=== PATIENT | female | born 1950 | race Caucasian/White ===

== ENCOUNTER → 2016-05-17 | Outpatient (CLI) | payer OTHER, MEDICARE ==
[~2016-05-17] MED LIST: ANAS1TAB6 PO; BUPR-79 PO; BUPR200T2 PO; CALC1TAB9 PO; CALCPOW18 PO; CHOL200010 PO; COD1OIL4 PO; DICL1GEL28; DICY10CA12 PO; ESCI1TAB6 PO; GABA-113 PO; GLUCTAB7 PO; HYDR-5688 PO; MULTTAB58 PO; NRN/300 PO; OKRA PEPSIN PO; OMEGCAP2 PO; OMEP20CA9 PO; TROL10LO PO
== END | disposition home or self-care (01) ==
LOC: C.LABBC 12:43
PROVIDERS: ATTEND Family Medicine
DX: Z11.59 Encounter for screening for other viral diseases (principal)

== ENCOUNTER → 2016-07-26 | Outpatient (CLI) | payer OTHER, MEDICARE ==
[2016-07-26 13:17] VITALS: BP 133/73; PULSE 68; TEMP 36.7; O2SAT 96
--- NOTE | 2016-07-26 16:50 | Radiation Oncology Follow-Up ---
Radiation Oncology Follow-Up Date of Visit Jul 26, 2016. Reason For Visit Annual follow-up Radiation Completion Date 11/25/13 hypofractionation Diagnosis (1) Carcinoma of upper-outer quadrant of left female breast Status: Resolved Onset Date: 02/25/2013 Histology Subtype: ductal Stage: l Permanent Comment: Abnormal left breast mammogram Status post ultrasound-guided biopsy 02/25/2013 finding invasive ductal carcinoma Status post partial mastectomy and sentinel lymph node biopsy Stage pTb [id number] Estrogen receptor positive progesterone receptor positive HER-2/amara negative Status post dose dense systemic chemotherapy Status post completion of radiation therapy utilizing hypo-fractionation completed 11/25/2013 received 5000 cGy Last Edited By: Nithya Patricia on Jul 07, 2015 16:01 Interim History She's been doing well over this past year. She has noted no masses to the breast. She did have some mild discomfort in her left axilla following mammography in November. This has persisted somewhat since. There may have been some mild swelling following the test. She noticed no redness or ecchymosis. She has noted no masses of the axilla. She's had no swelling of her arm. She is up-to-date on mammography. She continues follow-up in [place] with examinations and mammography. 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 This is improved by taking Neurontin. At times she needs to take this 4 times a day. This is followed by neurology. She is also followed for her MS. After completing her chemotherapy her MS went into remission and she is no longer required medications for the MS. Allergies Coded Allergies: Penicillins (Verified Allergy, Intermediate, HIVES, 03/30/15) Clonazepam (Verified Allergy, Unknown, Depression;, 07/26/16) Tetracycline (Verified Adverse Reaction, Intermediate, rash, 03/30/15) Zolpidem (Verified Adverse Reaction, Intermediate, sleep eating episodes, 03/30/15) Adhesives (Verified Adverse Reaction, Mild, skin tears, skin blisters, 03/30/15) Pt feels it was assoc. with the tape on surgical dressing Erythromycin (Verified Adverse Reaction, Mild, GI SYMPTOMS, 03/30/15) stomach bhandari Home Medications Scheduled Anastrozole (Anastrozole), 1 TAB PO QAM Bupropion (Wellbutrin Sr), 200 MG PO BID Calcium Citrate-Vitamin D (Citracal + D3 Maximum), 1 TAB PO BID Cholecalciferol (Vitamin D), 1 TAB PO BID Cod Liver Oil (Cod Liver Oil), 2 TSP PO DAILY Escitalopram Oxalate (Lexapro), 5 MG PO DAILY Gabapentin (Neurontin), 300 MG PO QAM Gabapentin (Neurontin), 600 MG PO QPM Vevonfdguwf-Rhlldzmwyfd-Sdj C- (Glucosamine Chondroitin), 1 TAB PO QAM Multiple Vitamin (Multivitamin), 1 TAB PO QAM Trolamine Salicylate (Aspercreme), 1 APPLN PO HS [okra pepsin], 1 CAP PO BID Scheduled PRN Dicyclomine Hcl (Dicyclomine Hcl), 1 CAP PO TID PRN for ABDOMINAL PAIN Hydrocodone/Acetaminophen 5MG/325MG ([place] 5MG/325MG), 0.5 TABLETS PO HS PRN for Pain Review of Systems Gastrointestinal: Symptoms: Constipation GI Comments: Constipation - manageable at home;Relates it to her medications ; Oral: Symptoms: No Problems Respiratory: Symptoms: WNL Urinary: Symptoms: WNL Comments: Small amount of urinary leakage - wears small poise pad for; Skin: Symptoms: No Problems Other Skin Symptoms: Still uses natrual care gel occaisonally Breast: Right Upper Arm Measurement: 28.3 Right Mid Arm Measurement: 25.3 Right Wrist Measurement: 16.0 Left Upper Arm Measurement: 28.8 Left Mid Arm Measurement: 25.0 Left Wrist Measurement: 16.0 Arm Dominence: Right Physical Exam Vital Signs Date Time Temp Pulse Resp B/P Pulse Ox O2 Delivery O2 Flow Rate FiO2 07/26/16 13:17 36.7 68 12 133/73 96 Pain: Pain Duration: Comes and goes Side: Bilateral Pain Location: Joint Pain Patient Pain Scale: 0 - 10 Initial Pain Intensity: 3.5 Pain Description: Aching Additional Comments: Also using aspercream to joints; Fatigue: None General Appearance: no apparent distress Eyes: normal inspection, EOMI ENT: normal ENT inspection, hearing grossly normal Neck: no adenopathy, thyroid normal Respiratory/Chest: lungs clear, no respiratory distress, no accessory muscle use Breast: Breast examination reveals well-healed incisions of the left breast. There are no masses or tenderness and no axillary adenopathy. She has one small area of ecchymosis in the upper inner quadrant. Using the [place] score cosmesis she has a excellent outcome. The right breast showed no masses or tenderness no axillary adenopathy. Cardiovascular: regular rate, rhythm, no gallop, no murmur Extremities: no pedal edema Neurologic/Psychiatric: no motor/sensory deficits, alert, normal mood/affect Skin: warm/dry Lymphatic: no adenopathy Laboratory Studies Test 05/17/16 12:50 05/26/16 13:52 Hepatitis C Antibody NEG (NEG) White Blood Count 4.70 K/uL (4.8-10.8) Red Blood Count 4.50 M/uL (4.2-5.4) Hemoglobin 14.2 g/dL (12.0-16.0) Hematocrit 42.2 % (37-47) Mean Corpuscular Volume 93.8 fL (80-100) Mean Corpuscular Hemoglobin 31.6 pg (25-34) Mean Corpuscular Hemoglobin Concent 33.6 g/dl (32-36) Platelet Count 182 K/uL (130-400) Mean Platelet Volume 9.8 fL (7.4-10.4) Neutrophils (%) (Auto) 53.0 % Lymphocytes (%) (Auto) 36.8 % Monocytes (%) (Auto) 7.2 % Eosinophils (%) (Auto) 2.8 % Basophils (%) (Auto) 0.2 % Neutrophils # (Auto) 2.49 K/uL (1.4-6.5) Lymphocytes # (Auto) 1.73 K/uL (1.2-3.4) Monocytes # (Auto) 0.34 K/uL (0.11-0.59) Eosinophils # (Auto) 0.13 K/uL (0-0.5) Basophils # (Auto) 0.01 K/uL (0-0.2) RDW Standard Deviation 43.1 fL (36.4-46.3) RDW Coefficient of Variation 12.7 % (11.5-14.5) Immature Granulocyte % (Auto) 0.0 % Immature Granulocyte # (Auto) 0.00 K/uL (0.00-0.02) Additional Studies She had a mammogram 11/23/2015. This showed calcifications in the left breast are probably benign. A unilateral diagnostic mammogram of the left breast is recommended in 6 months. Recommended magnification mammography in 6 months. She had a mammogram in 05/30/2016. This showed calcifications in the left breast are probably benign. Follow-up in 6 months is recommended. BI-RADS Category 3 Assessment & Plan Plan: Continue regular follow-up with her primary care physician and the breast Center in [place]. She'll be due for next mammogram in November. She continues on anastrozole. We discussed the discomfort on the lateral aspect of the breast. Slightly some inflammation or contact us to chondritis. She steadily improve over time. We asked her to return to our office in 1 year. She may call if she has any questions or concerns in the interim. Total Time In Follow-Up I spent 20 minutes speaking to the patient and performing examination. I spent 15 minutes reviewing information in completing this note. Copy To Sandra De Jesus; Hortencia Prescott CRNP; Anabella Anguiano, DO
== END | disposition home or self-care (01) ==
LOC: C.ONC 12:50
PROVIDERS: ATTEND Physician Assistant Medical
DX: Z08 Encounter for follow-up examination after completed treatment for malignant neoplasm (principal); Z92.3 Personal history of irradiation; Z85.3 Personal history of malignant neoplasm of breast

== ENCOUNTER → 2017-03-30 | Outpatient (CLI) | payer OTHER, MEDICARE ==
[~2017-03-30] MED LIST changes: -BUPR-79 PO; -CALCPOW18 PO; -DICL1GEL28; -OMEGCAP2 PO; -OMEP20CA9 PO
[2017-03-30 13:09] LABS: BASO % 0.5 %; BASO ABS # 0.02 K/uL (0-0.2); COMPLETE YES; EOS % 2.2 %; HEMATOCRIT 42.8 % (37-47); LYMPH % 41.2 %; MEAN CELL VOLUME 94.7 fL (80-100); MEAN CORPUSCULAR HEMOGLOBIN 32.1 pg (25-34); MEAN CORPUSCULAR HGB CONC 33.9 g/dl (32-36); MEAN PLATELET VOLUME 10.6 fL (7.4-10.4); NEUT % 48.1 %; PLATELET COUNT 172 K/uL (130-400); RED BLOOD COUNT 4.52 M/uL (4.2-5.4); WHITE BLOOD COUNT 4.13 K/uL (4.8-10.8)
[2017-03-30 13:36] LABS: BLOOD UREA NITROGEN 15 mg/dl (7-18); BUN/CREATININE RATIO 14.6 (10-20); CARBON DIOXIDE 30 mmol/L (21-32); CHLORIDE 104 mmol/L (98-107); CREATININE 1.02 mg/dl (0.60-1.20); GLUCOSE 93 mg/dl (70-99); POTASSIUM 4.3 mmol/L (3.5-5.1); SODIUM 136 mmol/L (136-145)
[2017-03-30 13:44] LABS: CHOLESTEROL/HDL RATIO 2.5
== END | disposition home or self-care (01) ==
LOC: C.LAB1850 12:14
PROVIDERS: ATTEND Family Medicine
DX: I10 Essential (primary) hypertension (principal); G35 Multiple sclerosis; M81.0 Age-related osteoporosis without current pathological fracture; C50.919 Malignant neoplasm of unspecified site of unspecified female breast

== ENCOUNTER → 2017-07-25 | Outpatient (CLI) | payer OTHER, MEDICARE ==
[2016-07-26 13:17] VITALS: BP 133/73; PULSE 68
[~2017-07-25] MED LIST changes: -ANAS1TAB6 PO; +ANAS1TAB7 PO; +PRLSR20 PO; +TAMO20TA9 PO
[2017-07-25 13:07] VITALS: BP 122/66; PULSE 68; TEMP 36.9; O2SAT 97
--- NOTE | 2017-07-25 16:27 | Radiation Oncology Follow-Up ---
Radiation Oncology Follow-Up Date of Visit Jul 25, 2017. Reason For Visit Annual follow-up Radiation Completion Date Hypofractionation 11/25/13 Diagnosis (1) Carcinoma of upper-outer quadrant of left female breast Status: Resolved Onset Date: 02/25/2013 Histology Subtype: Ductal Stage: l Permanent Comment: Abnormal left breast mammogram Status post ultrasound-guided biopsy 02/25/2013 finding invasive ductal carcinoma Status post partial mastectomy and sentinel lymph node biopsy Stage pTb [id number] Estrogen receptor positive progesterone receptor positive HER-2/amara negative Status post dose dense systemic chemotherapy Status post completion of radiation therapy utilizing hypo-fractionation completed 11/25/2013 received 5000 cGy Last Edited By: Nithya Patricia on Jul 07, 2015 16:01 Interim History She has continued with her regular follow-up mammography. She stated that approximately 1 year ago when undergoing mammography she had discomfort during the test. Since that time she continues to have a mild discomfort in the upper outer portion of the breast. This is minimal and she does not give a a pain level. She notes especially when she is more active. She is noted no masses and no changes of the axilla. She is up-to-date with current mammography. She denied any severe pain with her last mammogram. She is followed by Dr. Benjamin and had been on an aromatase inhibitor. She had severe joint and muscle pain. Medication was discontinued and she is now on tamoxifen. She does have less muscle pain. She does have some joint pain. Allergies Coded Allergies: Penicillins (Verified Allergy, Intermediate, HIVES, 03/30/15) Clonazepam (Verified Allergy, Unknown, Depression;, 07/26/16) Tetracycline (Verified Adverse Reaction, Intermediate, rash, 03/30/15) Zolpidem (Verified Adverse Reaction, Intermediate, sleep eating episodes, 03/30/15) Adhesives (Verified Adverse Reaction, Mild, skin tears, skin blisters, 03/30/15) Pt feels it was assoc. with the tape on surgical dressing Erythromycin (Verified Adverse Reaction, Mild, GI SYMPTOMS, 03/30/15) stomach bhandari Home Medications Scheduled Bupropion (Wellbutrin Sr), 200 MG PO BID Calcium Citrate-Vitamin D (Citracal + D3 Maximum), 1 TAB PO BID Cholecalciferol (Vitamin D), 1 TAB PO BID Cod Liver Oil (Cod Liver Oil), 2 TSP PO DAILY Escitalopram Oxalate (Lexapro), 20 MG PO DAILY Gabapentin (Neurontin), 300 MG PO QAM Gabapentin (Neurontin), 600 MG PO QPM Pjoxwyfxsoq-Raevisskbmj-Ifw C- (Glucosamine Chondroitin), 1 TAB PO QAM Multiple Vitamin (Multivitamin), 1 TAB PO QAM Omeprazole (Prilosec), 20 MG PO DAILY Tamoxifen (Nolvadex), 20 MG PO DAILY Trolamine Salicylate (Aspercreme), 1 APPLN PO HS [okra pepsin], 1 CAP PO BID Scheduled PRN Dicyclomine Hcl (Dicyclomine Hcl), 1 CAP PO TID PRN for ABDOMINAL PAIN Hydrocodone/Acetaminophen 5MG/325MG ([place] 5MG/325MG), 0.5 TABLETS PO HS PRN for Pain Review of Systems Gastrointestinal: Symptoms: Constipation GI Comments: Chronic constipation manageable at home;Anal fissure - rectal spotting Oral: Symptoms: No Problems Respiratory: Symptoms: WNL Urinary: Symptoms: Incontinence Comments: Has some urinary leakage if delays urge to void;Wears poise pads; Skin: Symptoms: No Problems Other Skin Symptoms: Still uses natrual care gel occaisonally Breast: Right Upper Arm Measurement: 16.0 Right Mid Arm Measurement: 26.0 Right Wrist Measurement: 29.3 Left Upper Arm Measurement: 30.5 Left Mid Arm Measurement: 25.0 Left Wrist Measurement: 16.0 Arm Dominence: Right Physical Exam Vital Signs Date Time Temp Pulse Resp B/P (MAP) Pulse Ox O2 Delivery O2 Flow Rate FiO2 07/25/17 13:07 36.9 68 12 122/66 97 Fatigue: None General Appearance: no apparent distress Eyes: normal inspection, EOMI ENT: normal ENT inspection, hearing grossly normal Neck: no adenopathy, thyroid normal Respiratory/Chest: lungs clear, no respiratory distress, no accessory muscle use Breast: Wrist examination reveals well-healed incisions of the left breast. There are no masses. There is mild tenderness to deep palpation in one area of the right upper outer quadrant. There is no axillary adenopathy. Using the [place] score cosmesis she has an excellent outcome. When showing me the area of discomfort she pushed very firmly into the breast tissue. The right breast showed no masses or tenderness and no axillary adenopathy. Cardiovascular: regular rate, rhythm, no gallop, no murmur Extremities: no pedal edema Neurologic/Psychiatric: no motor/sensory deficits, alert, normal mood/affect Skin: warm/dry Pain Management Patient Reports Pain: Yes Side: Bilateral Pain Location: both knee;Right SI joint ache Patient Preferred Pain Scale: 0 - 10 Initial Pain Intensity: 3.5 Pain Management Plan Joint pain is due to the antiestrogen therapy. She does not require pain management through our office. Laboratory Laboratory Results: not applicable Pathology Pathology Results: not applicable Imaging Imaging Studies: were reviewed, and pertinent findings noted below Assessment & Plan Continue regular follow-up with medical oncology and her primary care physician. A copy of her most recent mammogram will be obtained for our chart. We discussed the discomfort of the breast. I have asked her to perform breast examination only once a month. She is continuing on the tamoxifen. We asked her to return to our office in 1 year. She may call if she has any questions or concerns in the interim. Total Time In Follow-Up I spent 20 minutes speaking to the patient in performing examination. I spent 15 minutes reviewing information and completing this note. Copy To Frederic Levin D.O.; Isadora Pacheco MD Problem Qualifiers (1) Carcinoma of upper-outer quadrant of left female breast: Estrogen receptor status: positive Qualified Codes: C50.412 - Malignant neoplasm of upper-outer quadrant of left female breast; Z17.0 - Estrogen receptor positive status [ER+]
== END | disposition home or self-care (01) ==
LOC: C.ONC 12:59
PROVIDERS: ATTEND Physician Assistant Medical
DX: Z08 Encounter for follow-up examination after completed treatment for malignant neoplasm (principal); Z92.3 Personal history of irradiation; Z85.3 Personal history of malignant neoplasm of breast

== ENCOUNTER 2017-12-07 14:27 | Emergency (ER) | payer OTHER, MEDICARE ==
[~2017-12-07] VITALS: Ht 172.7 cm; Wt 77.4 kg
[~2017-12-07 14:27] MED LIST changes: -ANAS1TAB7 PO
[2017-12-07 14:32] VITALS: Ht 172.7 cm; Wt 77.4 kg
[2017-12-07] MEDS ORDERED: GI COCKTAIL PO STA (14:49)
--- NOTE | 2017-12-07 15:02 | EMERGENCY ROOM VISIT NOTE ---
History First contact with patient: 14:35 Chief Complaint: ABDOMINAL PAIN Stated Complaint: PAIN UNDER RIB,POSSIBLE GALL BLADDER Nursing Triage Summary: Pt. is c/o abdominal pain, it has been bothering her for some time now, RUQ pain for 6 weeks. Pt. has normal bowel sounds. N/V. History of Present Illness The patient is a 67 year old female who presents to the Emergency Room with complaints of right upper quadrant abdominal pain which is been intermittent for the past 6 weeks. The patient states she did see her primary care provider at that time and was prescribed 40 mg omeprazole twice daily and had a gallbladder ultrasound performed. She states the ultrasound showed some small gallstones, but no signs of acute cholecystitis. The patient does believe the increased antacid dose has been beneficial. She is scheduled for a nuclear test to be performed to check the gallbladder function next Sunday. For the past 4 nights, the patient has been having bowel movements at the end of the day which is unusual. She does report cramps in her upper abdomen which is consistent with her pain. Patient has had a decreased appetite for the past few weeks. She states she did notice some increased bloating and generalized abdominal discomfort after eating a [employer] hamburger, but states she does get many of those symptoms with any foods. She denies any recent fever, chills , nausea, vomiting, constipation, paresthesias, flank pain, urinary symptoms, chest pain, or dyspnea. Review of Systems A complete 10 point review of systems was reviewed with the patient with pertinent positives and negatives as per history of present illness. All else were negative. Past Medical/Surgical History Medical Problems: (1) Breast cancer (2) Carcinoma of upper-outer quadrant of left female breast Social History Smoking Status: Never Smoker Smokeless Tobacco Use: No Alcohol Use: none Drug Use: none Marital Status: Housing Status: lives with family Current/Historical Medications Scheduled Bupropion (Wellbutrin Sr), 200 MG PO BID Calcium Citrate-Vitamin D (Citracal + D3 Maximum), 1 TAB PO BID Cholecalciferol (Vitamin D), 1 TAB PO BID Escitalopram Oxalate (Escitalopram Oxalate), 10 MG PO DAILY Fish Oil ([place]-3), 1 CAP PO DAILY Gabapentin (Neurontin), 300 MG PO QAM Gabapentin (Neurontin), 600 MG PO QPM Multiple Vitamin (Multivitamin), 1 TAB PO QAM Omeprazole (Prilosec), 40 MG PO BID Pantoprazole (Protonix), 40 MG PO DAILY Ranitidine (Zantac), 1 TAB PO BID Tamoxifen (Nolvadex), 20 MG PO DAILY Trolamine Salicylate (Aspercreme), 1 APPLN PO HS Scheduled PRN Hydrocodone/Acetaminophen 5MG/325MG ([place] 5MG/325MG), 0.5 TABLETS PO HS PRN for Pain Physical Exam Vital Signs Date Time Temp Pulse Resp B/P (MAP) Pulse Ox O2 Delivery O2 Flow Rate FiO2 12/07/17 16:30 36.8 56 18 145/81 97 12/07/17 16:29 56 18 145/81 97 Room Air 12/07/17 15:47 57 18 161/82 97 Room Air 12/07/17 14:32 36.8 64 18 163/86 97 Room Air Physical Exam VITALS: Vitals are noted on the nurse's note and reviewed by myself. Vital signs stable. GENERAL: This is a 67-year-old white female, in no acute distress, nondiaphoretic, well-developed well-nourished. SKIN: The skin was without rashes, erythema, edema, or bruising. There is no tenting of the skin. Capillary reflex less than 2 seconds. HEAD: Normocephalic atraumatic. EARS: External auditory canals clear, tympanic membranes pearly gallegos without erythema or effusion bilaterally. EYES: Pupils equal round and reactive to light and accommodation. Conjunctivae without injection, sclerae without icterus. Extraocular movements intact. NOSE: Patent, turbinates without inflammation or discharge. No sinus tenderness. MOUTH: Mucous membranes moist. Tonsils are not enlarged. Pharynx without erythema or exudate. Uvula midline. Airway patent. Tongue does not deviate. NECK: Supple without nuchal rigidity. No lymphadenopathy. No thyromegaly. Cervical spine is nontender. No JVD. HEART: Regular rate and rhythm without murmurs gallops or rubs. LUNGS: Clear to auscultation bilaterally without wheezes, rales or rhonchi. No dullness to percussion. No retractions or accessory muscle use. ABDOMEN: Positive bowel sounds x 4. Normal tympanic percussion. Right upper quadrant abdominal tenderness. The abdomen was otherwise soft, nontender, without masses or organomegaly. Pino sign negative. No guarding or rebound tenderness. No CVA tenderness bilaterally. MUSCULOSKELETAL: No muscle atrophy, erythema, or edema noted. Full range of motion without joint tenderness in all extremities. No tenderness to palpation. Normal gait. Strength 5/5 throughout. NEURO: Patient was alert and oriented to person place and time. Normal sensation to light and sharp touch. No focal neurological deficits. Medical Decision & Procedures ER Provider Diagnostic Interpretation: ULTRASOUND RIGHT UPPER QUADRANT ABDOMEN CLINICAL HISTORY: Right upper quadrant abdominal pain. COMPARISON STUDY: Abdominal CT dated 03/09/2015. TECHNIQUE: Real-time, grayscale, and color flow sonography of the right upper quadrant of the abdomen was performed. Images are reviewed in the transverse and longitudinal planes. FINDINGS: Liver: The liver is top normal in size, measuring 18.2 cm in length. Echotexture is normal. There is no intrahepatic biliary ductal dilatation. The main portal vein is patent. Gallbladder: There are numerous layering calcified gallstones. There is no gallbladder wall thickening or pericholecystic fluid. A sonographic Pino's sign is reportedly absent. The common bile duct measures up to 0.4 cm in diameter. Pancreas: Visualized portions of the pancreatic head and body are normal in appearance. The splenic vein is patent. Right kidney: Survey images of the right kidney demonstrate normal size and echotexture. There is no hydronephrosis. Ascites: None. IMPRESSION: Cholelithiasis without sonographic evidence of acute cholecystitis. Electronically signed by: Prosper Mccarthy M.D. 12/07/2017 3:48 PM Dictated Date/Time: 12/07/2017 3:47 PM Laboratory Results 12/07/17 15:00 Red Blood Count 4.39, Mean Corpuscular Volume 93.6, Mean Corpuscular Hemoglobin 31.2, Mean Corpuscular Hemoglobin Concent 33.3, Mean Platelet Volume 9.6, Neutrophils (%) (Auto) 51.4, Lymphocytes (%) (Auto) 34.5, Monocytes (%) (Auto) 10.9, Eosinophils (%) (Auto) 2.7, Basophils (%) (Auto) 0.5, Neutrophils # (Auto ) 1.89, Lymphocytes # (Auto) 1.27, Monocytes # (Auto) 0.40, Eosinophils # (Auto ) 0.10, Basophils # (Auto) 0.02 12/07/17 15:00 Test 12/07/17 15:00 White Blood Count 3.68 K/uL (4.8-10.8) Red Blood Count 4.39 M/uL (4.2-5.4) Hemoglobin 13.7 g/dL (12.0-16.0) Hematocrit 41.1 % (37-47) Mean Corpuscular Volume 93.6 fL (80-100) Mean Corpuscular Hemoglobin 31.2 pg (25-34) Mean Corpuscular Hemoglobin Concent 33.3 g/dl (32-36) Platelet Count 167 K/uL (130-400) Mean Platelet Volume 9.6 fL (7.4-10.4) Neutrophils (%) (Auto) 51.4 % Lymphocytes (%) (Auto) 34.5 % Monocytes (%) (Auto) 10.9 % Eosinophils (%) (Auto) 2.7 % Basophils (%) (Auto) 0.5 % Neutrophils # (Auto) 1.89 K/uL (1.4-6.5) Lymphocytes # (Auto) 1.27 K/uL (1.2-3.4) Monocytes # (Auto) 0.40 K/uL (0.11-0.59) Eosinophils # (Auto) 0.10 K/uL (0-0.5) Basophils # (Auto) 0.02 K/uL (0-0.2) RDW Standard Deviation 44.2 fL (36.4-46.3) RDW Coefficient of Variation 12.8 % (11.5-14.5) Immature Granulocyte % (Auto) 0.0 % Immature Granulocyte # (Auto) 0.00 K/uL (0.00-0.02) Urine Color YELLOW Urine Appearance CLEAR (CLEAR) Urine pH 6.0 (4.5-7.5) Urine Specific [place] 1.010 (1.000-1.030) Urine Protein NEG (NEG) Urine Glucose (UA) NEG (NEG) Urine Ketones NEG (NEG) Urine Occult Blood NEG (NEG) Urine Nitrite NEG (NEG) Urine Bilirubin NEG (NEG) Urine Urobilinogen NEG (NEG) Urine Leukocyte Esterase SMALL (NEG) Urine WBC (Auto) 5-10 /hpf (0-5) Urine RBC (Auto) 5-10 /hpf (0-4) Urine Hyaline Casts (Auto) 1-5 /lpf (0-5) Urine Epithelial Cells (Auto) >30 /lpf (0-5) Urine Bacteria (Auto) NEG (NEG) Urine Crystals CALCIUM OXALATE (NONE Anion Gap 5.0 mmol/L (3-11) Est Creatinine Clear Calc Drug Dose 53.3 ml/min Estimated GFR () 60.0 Estimated GFR (Non- 51.8 BUN/Creatinine Ratio 11.2 (10-20) Calcium Level 8.5 mg/dl (8.5-10.1) Total Bilirubin 0.3 mg/dl (0.2-1) Aspartate Amino Transf (AST/SGOT) 21 U/L (15-37) Alanine Aminotransferase (ALT/SGPT) 27 U/L (12-78) Alkaline Phosphatase 45 U/L (45-117) Total Protein 7.2 gm/dl (6.4-8.2) Albumin 3.6 gm/dl (3.4-5.0) Globulin 3.6 gm/dl (2.5-4.0) Albumin/Globulin Ratio 1.0 (0.9-2) Lipase 171 U/L (73-393) Medications Administered Medications (Trade) Dose Ordered Sig/Zayra Route Start Time Stop Time Status Last Admin Dose Admin Al Hydroxide/Mg Hydroxide (Maalox Susp) 30 ml STK-MED ONCE .ROUTE 12/07/17 15:06 12/07/17 15:07 DC 12/07/17 15:09 30 ML Lidocaine HCl (Viscous Lidocaine 2% Soln) 20 ml STK-MED ONCE .ROUTE 12/07/17 15:07 12/07/17 15:08 DC 12/07/17 15:08 20 ML ED Course The patient was seen and evaluated as above. IV access obtained, labs drawn. The patient was given a GI cocktail. She was reassessed and notes some improvement in symptoms, but otherwise continues to experience discomfort. Imaging performed and reviewed by myself and radiologist as above. Labs reviewed by myself. I discussed the findings with the patient at bedside. I discussed the case with my attending. He did see and evaluate the patient. Discharge instructions reviewed, the patient was discharged home in good condition. Medical Decision This is a 67-year-old female patient presents emergency department today complaining of 6 week long history of intermittent right upper quadrant pain. The patient had an outpatient ultrasound performed approximately 1 month ago which did show evidence for gallstones, but no acute cholecystitis. The patient has continued to experience the pain, significantly worse with fatty foods, but occurs anytime with eating. Labs do not show any evidence for leukocytosis, anemia, thrombocytopenia. The patient's renal, hepatic function and electrolytes are without significant abnormalities. Lipase was normal. Urinalysis does not show any signs of infection, but does appear to be a contaminated specimen. Repeat right upper quadrant ultrasound performed to rule out acute cholecystitis due to the patient's worsening pain. This was negative, but does show evidence for cholelithiasis. The patient's symptoms are consistent with gastritis, however I do feel that she may be experiencing some biliary colic causing the ongoing pain. She is scheduled for further testing to be performed outpatient next Sunday. She does have narcotic pain medication at home she can use in the case of significantly worsening pain. The patient was pleased with the workup performed and feels comfortable with discharge. She will be switched from omeprazole to Protonix and I encouraged her to add ranitidine to her medication regimen to help with any gastritis/ reflux symptoms. All questions answered patient satisfaction prior to discharge per Etiologies such as appendicitis, diverticulitis, obstruction, inflammatory bowel disease, renal colic, PUD, biliary pathology, pancreatitis, mesenteric ischemia, aortic pathology, infections, genitourinary, UTI, perforated viscus, as well as others were entertained. The chart was completed utilizing [email or web address] Speech voice recognition software. Grammatical errors, random word insertions, pronoun errors, and incomplete sentences are an occasional consequence of this system due to software limitations, ambient noise, and hardware issues. Any formal questions or concerns about the content, text, or information contained within the body of this dictation should be directly addressed to the provider for clarification. Medication Reconcilliation Current Medication List: was personally reviewed by me Blood Pressure Screening Patient's blood pressure: Elevated blood pressure Blood pressure disposition: Elevated BP felt to be situational Impression Primary Impression: Gastritis Additional Impression: Biliary colic Departure Information Dispostion Home / Self-Care Condition GOOD Prescriptions Ranitidine (Zantac) 150 Mg Tab 1 TAB PO BID for 30 Days, #60 TAB Prov: Breanne Garcia, PA-C 12/07/17 Pantoprazole (Protonix) 40 Mg Tab 40 MG PO DAILY, #30 TAB Prov: Breanne Garcia PA-C 12/07/17 Referrals Isadora Pacheco MD (PCP) Patient Instructions ED Abdominal Pain Gallstone Poss, My [facility] Additional Instructions You have been treated in the Emergency Department your Abdominal Pain. Laboratory results and imaging studies have ruled out any emergent causes for your abdominal pain which would warrant admission or surgery. As discussed, I suspect gastritis and possible biliary colic as the cause of your symptoms. You were prescribed Protonix to be taken in place of omeprazole. Please take 40 mg daily. You were also prescribed ranitidine to be taken as directed. For pain control, you can use the following [id number] medicines (if >12 yo): Acetaminophen(Tylenol) may be used for fever or pain. Use 1000mg every six hours as needed. Avoid using more than 3000mg in a 24 hour period. *I do recommend avoiding NSAIDs, as these can worsen gastritis pain. Drink plenty of water and stay well hydrated. Eat a bland diet. Avoid fatty foods, fried foods, or acidic foods. As with any trip to the Emergency Department, you should follow-up with your Primary Care Provider in 2-3 days from today's visit. Return to the emergency department if your symptoms persist despite treatment plan outlined above or if the following symptoms occur: increased fevers, chills , worsening nausea/vomiting, blood in your stool or urine. Problem Qualifiers Primary Impression: Gastritis Gastritis type: unspecified gastritis Chronicity: acute Gastritis bleeding : without bleeding Qualified Codes: K29.00 - Acute gastritis without bleeding
[2017-12-07] MEDS ORDERED: ALUMINUM/MAGNESIUM SUSP 30 ML UDC ONE (15:06)
[2017-12-07] MEDS ORDERED: LIDOCAINE HCL 2% VISC SOLN 20 ML UDC ONE (15:07)
[2017-12-07 15:24] LABS: BASO % 0.5 %; BASO ABS # 0.02 K/uL (0-0.2); EOS % 2.7 %; HEMATOCRIT 41.1 % (37-47); HEMOGLOBIN 13.7 g/dL (12.0-16.0); LYMPH % 34.5 %; LYMPH ABS # 1.27 K/uL (1.2-3.4); MEAN CELL VOLUME 93.6 fL (80-100); MEAN CORPUSCULAR HEMOGLOBIN 31.2 pg (25-34); MEAN CORPUSCULAR HGB CONC 33.3 g/dl (32-36); MEAN PLATELET VOLUME 9.6 fL (7.4-10.4); MONO % 10.9 %; NEUT % 51.4 %; NEUT ABS # 1.89 K/uL (1.4-6.5); PLATELET COUNT 167 K/uL (130-400); RED CELL DISTRIBUTION WIDTH CV 12.8 % (11.5-14.5); RED CELL DISTRIBUTION WIDTH SD 44.2 fL (36.4-46.3); WHITE BLOOD COUNT 3.68 K/uL (4.8-10.8)
[2017-12-07 15:45] LABS: ALBUMIN 3.6 gm/dl (3.4-5.0); CALCIUM 8.5 mg/dl (8.5-10.1); CREATININE 1.09 mg/dl (0.60-1.20); POTASSIUM 4.3 mmol/L (3.5-5.1); TOTAL PROTEIN 7.2 gm/dl (6.4-8.2)
--- NOTE | 2017-12-07 15:49 | DIAGNOSTIC IMAGING REPORT ---
ULTRASOUND RIGHT UPPER QUADRANT ABDOMEN CLINICAL HISTORY: Right upper quadrant abdominal pain. COMPARISON STUDY: Abdominal CT dated 03/09/2015. TECHNIQUE: Real-time, grayscale, and color flow sonography of the right upper quadrant of the abdomen was performed. Images are reviewed in the transverse and longitudinal planes. FINDINGS: Liver: The liver is top normal in size, measuring 18.2 cm in length. Echotexture is normal. There is no intrahepatic biliary ductal dilatation. The main portal vein is patent. Gallbladder: There are numerous layering calcified gallstones. There is no gallbladder wall thickening or pericholecystic fluid. A sonographic Pino's sign is reportedly absent. The common bile duct measures up to 0.4 cm in diameter. Pancreas: Visualized portions of the pancreatic head and body are normal in appearance. The splenic vein is patent. Right kidney: Survey images of the right kidney demonstrate normal size and echotexture. There is no hydronephrosis. Ascites: None. IMPRESSION: Cholelithiasis without sonographic evidence of acute cholecystitis. Electronically signed by: Prosper Mccarthy M.D. 12/07/2017 3:48 PM Dictated Date/Time: 12/07/2017 3:47 PM
--- NOTE | 2017-12-07 16:06 | EMERGENCY ROOM VISIT NOTE ---
ED Visit Note First contact with patient: 14:35 Patient was seen by our PA/OSS ARCHITECT. I was involved in the patient's care and did evaluate the patient myself. I was involved in the care throughout the ER stay. Patient presents with what sounds like possibly biliary colic. Workup here today does not show the need for an emergent gallbladder surgery. She is being referred back to her outpatient doctor's office. We will try to help some of her symptoms by switching around her reflux meds. If she does have fever or if she is worsening, she will return for reassessment.
[2017-12-07] MEDS ORDERED: PANT40TA PO (16:13)
[2017-12-07] MEDS ORDERED: RANI150T85 PO (16:13)
[2017-12-07] MEDS ORDERED: LXP10 PO (16:29)
[2017-12-07] MEDS ORDERED: OMEG10007 PO (16:29)
[2017-12-07] MEDS ORDERED: OMEP40CA41 PO (16:29)
[2017-12-07 16:30] VITALS: BP 145/81; PULSE 56; TEMP 36.8; O2SAT 97
== END 2017-12-07 16:32 | disposition home or self-care (01) ==
LOC: C.EDB 14:31
DX: K29.00 Acute gastritis without bleeding (principal); K80.50 Calculus of bile duct without cholangitis or cholecystitis without obstruction; Z85.3 Personal history of malignant neoplasm of breast; Z79.899 Other long term (current) drug therapy

== ENCOUNTER 2018-09-03 08:32 | Inpatient (IN) ==
--- NOTE | 2018-08-01 16:50 | PAT Medication Instructions ---
Medication Instructions Date of Service August 01, 2018 Home Medications acetaminophen [Tylenol Extra] 500 mg PO HS PRN bupropion HCl [Wellbutrin SR] 200 mg PO BID calcium citrate-vitamin D3 1 tab PO QPM calcium-vitamin D3-vitamin K 1 tab PO QAM cholecalciferol (vitamin D3) 2,000 unit PO BID docusate sodium [Stool Softener] 50 mg PO HS doxylamine succinate 12.5 mg PO HS PRN escitalopram oxalate [Lexapro] 10 mg PO QPM gabapentin 300 mg PO QAM gabapentin 600 mg PO QPM hydrocodone-acetaminophen [[place]] 0.5 - 2 tab PO Q8H PRN ibuprofen 200 mg PO QAM melatonin 10 mg PO HS PRN multivitamin 1 cap PO QAM omega 6-axp-lrg-fish oil [Fish Oil] 1 cap PO QAM omeprazole 20 mg PO QAM psyllium husk [Metamucil] 1 tbsp PO DAILY tamoxifen 20 mg PO QAM ASK your surgeon for instructions ibuprofen 200 mg PO QAM ASK your prescriber and surgeon tamoxifen 20 mg PO QAM STOP taking 2 weeks before surgery omega 7-car-syf-fish oil [Fish Oil] 1 cap PO QAM DO NOT take the morning of surgery calcium-vitamin D3-vitamin K 1 tab PO QAM cholecalciferol (vitamin D3) 2,000 unit PO BID multivitamin 1 cap PO QAM psyllium husk [Metamucil] 1 tbsp PO DAILY Take morning of surgery With a small sip of water, OTHERWISE NOTHING TO EAT OR DRINK AFTER MIDNIGHT: bupropion HCl [Wellbutrin SR] 200 mg PO BID gabapentin 300 mg PO QAM hydrocodone-acetaminophen [[place]] 0.5 - 2 tab PO Q8H PRN (if needed, may be taken up to four hours before surgery) omeprazole 20 mg PO QAM Take evening before surgery acetaminophen [Tylenol Extra] 500 mg PO HS PRN (if needed) bupropion HCl [Wellbutrin SR] 200 mg PO BID calcium citrate-vitamin D3 1 tab PO QPM cholecalciferol (vitamin D3) 2,000 unit PO BID docusate sodium [Stool Softener] 50 mg PO HS doxylamine succinate 12.5 mg PO HS PRN (if needed) escitalopram oxalate [Lexapro] 10 mg PO QPM gabapentin 600 mg PO QPM hydrocodone-acetaminophen [[place]] 0.5 - 2 tab PO Q8H PRN (if needed) melatonin 10 mg PO HS PRN (if needed) Other Notes If you have any questions please call us at [phone] or [phone] or [phone] or [phone]
--- NOTE | 2018-08-02 09:06 | Anesthesiology Consultation ---
Date of Service August 02, 2018 Assessment & Plan (1) Encounter for pre-operative examination: Chart Review Chart Review: Acceptable Risk for Surgery and Patient seen in Pre Admission Testing Teaching & Discussion Instructed NPO after midnight before surgery, except medications with 15 cc of water. Medication instructions provided according to the PAT guidelines. History Surgery Operation Date: 09/03/18 12:30 Proposed Procedures p Left Total Knee Replacement - Frederic Soto MD Height/Weight Height: 5 ft 7.5 in Weight: 78.4 kg Allergies Allergy/AdvReac Type Severity Reaction Status Date / Time Penicillins Allergy Intermediate HIVES Verified 07/29/18 15:57 clonazepam Allergy Unknown Depression; Verified 07/29/18 15:57 tetracycline AdvReac Intermediate rash Verified 07/29/18 15:57 zolpidem AdvReac Intermediate sleep Verified 07/29/18 15:57 eating episodes adhesive AdvReac Mild skin Verified 07/29/18 15:57 tears, skin blisters erythromycin base AdvReac Mild GI SYMPTOMS Verified 07/29/18 15:57 Medications Home Medications Medication Instructions Recorded Confirmed Last Taken acetaminophen [Tylenol Extra 500 mg PO HS PRN 07/29/18 07/29/18 Unknown Strength] bupropion HCl [Wellbutrin SR] 200 mg PO BID 07/29/18 07/29/18 Unknown calcium citrate-vitamin D3 1 tab PO QPM 07/29/18 07/29/18 Unknown [Citracal Regular] calcium-vitamin D3-vitamin K 1 tab PO QAM 07/29/18 07/29/18 Unknown [Viactiv] cholecalciferol (vitamin D3) 2,000 unit PO BID 07/29/18 07/29/18 Unknown [Vitamin D3] docusate sodium [Stool Softener] 50 mg PO HS 07/29/18 07/29/18 Unknown doxylamine succinate 12.5 mg PO HS PRN 07/29/18 07/29/18 Unknown escitalopram oxalate [Lexapro] 10 mg PO QPM 07/29/18 07/29/18 Unknown gabapentin 300 mg PO QAM 07/29/18 07/29/18 Unknown gabapentin 600 mg PO QPM 07/29/18 07/29/18 Unknown hydrocodone-acetaminophen [[place]] 0.5 - 2 tab PO Q8H PRN 07/29/18 07/29/18 Unknown ibuprofen 200 mg PO QAM 07/29/18 07/29/18 Unknown melatonin 10 mg PO HS PRN 07/29/18 07/29/18 Unknown multivitamin 1 cap PO QAM 07/29/18 07/29/18 Unknown omega 6-wod-xin-fish oil [Fish Oil] 1 cap PO QAM 07/29/18 07/29/18 Unknown omeprazole 20 mg PO QAM 07/29/18 07/29/18 Unknown psyllium husk [Metamucil] 1 tbsp PO DAILY 07/29/18 07/29/18 Unknown tamoxifen 20 mg PO QAM 07/29/18 07/29/18 Unknown Past Medical History Medical History Anxiety Chronic leukopenia Ever since chemotherapy Depression GERD (gastroesophageal reflux disease) History of breast cancer 5 YEARS AGO. LUMPECTOMY, CHEMO AND RADIATION. History of neuropathy S/T CHEMO TREATMENT. Multiple sclerosis REMISSION. FOLLOWS WITH DR. PARADA, [facility]. Osteoarthritis Vertigo Exacerbated by sitting up too fast and turning to left side while laying down Past Surgical History Surgical History History of adenoidectomy History of breast lump removal History of cataract extraction with lens replacement History of colonoscopy History of dental surgery History of dilatation and curettage History of esophagogastroduodenoscopy (EGD) History of tonsillectomy Past Anesthesia History No Hx of Anesthesia Complications Patient's aunt " from an allergic reaction to an anesthetic medication" 35ys ago. Denies MH, pseudocholinesterase deficiency. History of PONV No Motion Sickness Screening History of Motion Sickness: Yes Social History Smoking Status: Never smoker Do You Dip or Chew Tobacco: No Hx Alcohol Use: Yes Alcohol type: wine alcohol intake frequency: a few times a week Alcohol Intake Frequency Comment: 1-2 GLASSES OF WINE PER WEEK Hx Substance Use: No substance use type: does not use Exercise / Class Metabolic Activity II 4-5 Yardwork/Stairs/Walk up hill (denies CP or SOB with 1 FOS) Review of Systems Pt denies any recent chest pain, shortness of breath, palpitations, cough, fever or URI. Physical Exam Vital Signs BP: 122/76 P: 62bpm SPO2: 97% RA T: 98.1 F R: 12 ENMT Mouth: + dental restorations (cap on R upper front tooth, many crowns ); no chipped teeth and no loose teeth Thyromental Distance: > or= 3.5 Finger Breadths (.5) Mallampati Class: II Neck normal visual inspection; neck extension not limited Respiratory normal respiratory effort Auscultation: + wheezes (Diffuse B/L soft expiratory wheezes); + lungs not clear to auscultation Cardiovascular Rate/Rhythm: regular rate and regular rhythm Heart Sounds: no murmur Vessels: no carotid bruit Extremities: no edema Testing Electrocardiogram Date: 08/02/18 Findings: + NSR @ (61) Chest X-Ray Date: 08/02/18 Findings: + NAD Laboratory Results 08/02/18 09:40 08/02/18 11:08 Blood Type O Negative 08/02/18 09:40 Antibody Screen NEGATIVE 08/02/18 09:40 PT 10.9 Seconds (9.0-12.0) 08/02/18 09:40 INR 1.1 (0.9-1.1) 08/02/18 09:40 APTT 24.6 Seconds (21.0-31.0) 08/02/18 09:40
--- NOTE | 2018-08-02 10:00 | XRay Report ---
XR chest Pre-admission PA/Lat CLINICAL HISTORY: Preoperative chest COMPARISON STUDY: 02/04/2018 FINDINGS: The cardiac and mediastinal contours are normal. There is no evidence of focal pulmonary co nsolidation. There is no evidence of failure. No pleural effusions are visualized.[ There is an old r ight-sided rib fracture. IMPRESSION: No active disease in the chest. Electronically signed by: Mario Alberto Jimenez M.D. 08/02/2018 9:59 AM
[2018-08-02 10:56] LABS: Basophils # (auto) 0.01 K/uL (0-0.2); Basophils % (auto) 0.3 %; Eosinophils # (auto) 0.08 K/uL (0-0.5); Eosinophils % (auto) 2.6 %; Hematocrit (blood only) 40.5 % (37-47); Hemoglobin 13.4 g/dL (12.0-16.0); Lymphocytes # (auto) 1.42 K/uL (1.2-3.4); Mean Corpuscular Hgb Conc 33.1 g/dL (32-36); Mean Corpuscular Volume 93.8 fL (80-100); Mean Platelet Volume 10.4 fL (7.4-10.4); Monocytes # (auto) 0.42 K/uL (0.11-0.59); Monocytes % (auto) 13.6 %; Neutrophils # (auto) 1.16 K/uL (1.4-6.5); Neutrophils % (auto) 37.5 %; Platelet Count 169 K/uL (130-400); RDW Coefficient of Variation 12.6 % (11.5-14.5); RDW Standard Deviation 42.9 fL (36.4-46.3); Red Blood Count 4.32 M/uL (4.2-5.4); White Blood Count 3.09 K/uL (4.8-10.8)
[2018-08-02 11:06] LABS: INR 1.1 (0.9-1.1); Partial Thromboplastin Ratio 0.9; Partial Thromboplastin Time 24.6 Seconds (21.0-31.0); Prothrombin Time 10.9 Seconds (9.0-12.0)
[2018-08-02 12:24] LABS: BUN Creatinine Ratio 14.8 (10-20); Creatinine Clr Calc Pharmacy 51.2 ml/min; Est GFR (African American) 57.4; Est GFR (Non-African American) 49.6
--- NOTE | 2018-08-31 13:50 | History and Physical Report ---
DATE OF ADMISSION: 09/03/2018 CHIEF COMPLAINT: Bilateral knee pain and discomfort, left side greater than the right. HISTORY OF PRESENT ILLNESS: The patient is a 67-year-old female from [place] who presents for surgical treatment of her knees. She has got a long history of knee problems and is followed by Dr. Swan at [facility] in the past. She describes it has gotten worse particularly over the past 4-5 years. She describes global pain in both knees. The left side is a bit worse than the right. It is worse going up and down steps. She gets swelling. She has been through extensive conservative treatment, which really does not work much at all anymore. This steroid shot worked for 1 week the last time and she had viscosupplementation, which did not help at all. She has been taking various meds and started taking hydrocodone to control her pain. She would like to proceed with surgical treatment. PAST MEDICAL HISTORY: 1. Heart murmur. 2. Depression. 3. Neuropathy. 4. Question of multiple sclerosis. 5. Hiatal hernia. 6. Low back pain. 7. Breast cancer, status post lumpectomy. PREVIOUS SURGERIES: Include breast cancer, status post lumpectomy. ALLERGIES: PENICILLIN, TETRACYCLINE, ERYTHROMYCIN, ATIVAN. CURRENT MEDICINES: Include: 1. Doxylamine 12.5 mg at bedtime for sleep. 2. Fish oil. 3. Melatonin. 4. Multivitamin. 5. Pantoprazole. 6. Ranitidine. 7. Tamoxifen. 8. Omeprazole. 9. Hydrocodone. 10. Citalopram. 11. Bupropion. 12. Cyclobenzaprine. 13. Gabapentin. 14. Calcium. 15. Prolia solution. 16. Meclizine. 17. Vitamin D. 18. Prednisone p.r.n. for multiple sclerosis. SOCIAL HISTORY: A 67-year-old female. She is from [place]. She is . She is retired. No children. One drink per week. Does not smoke. FAMILY HISTORY: Significant for heart disease and dementia. REVIEW OF SYSTEMS: Significant for there is question of multiple sclerosis. She takes prednisone intermittently. Denies any chest pain or shortness of breath. No history of DVT or PE. No known bleeding problems. PHYSICAL EXAMINATION: GENERAL: Reveals a pleasant elderly female. Looks to be in pretty good health. HEENT: Benign. NECK: Supple. No lymphadenopathy. LUNGS: Clear to auscultation. HEART: Regular rate and rhythm. ABDOMEN: Soft, nontender, nondistended. EXTREMITIES: Grossly neurovascularly intact except as follows: Examination of both knees reveals patient walks with a slightly hunched over flexed knee gait. She kind of shuffles a little bit. Examination of the left knee reveals about a 10 degree flexion contracture and about 115 degrees of flexion. Small knee effusion. She is tender to palpate particularly around the anterior aspect of the knee. She has got crepitance with knee motion. Negative straight leg raise. She does have a little stiffness with hip motion. X-RAYS: X-rays of the left knee reveal tald-qr-bivlgxme tibiofemoral arthritis with advanced patellofemoral arthritis. Left-side is a bit worse than the right. X-rays of the pelvis reveal some moderate bilateral hip arthritis. ASSESSMENT: A 67-year-old female with a history of question of multiple sclerosis with a long history of knee pain, left side a bit worse than the right. She has been through extensive conservative treatment. She does have some hip arthritis, but it seems like her knee arthritis is the thing that is really limiting her. PLAN: We had a long discussion as far as treatment. We talked about the hip and knee surgery and she would like to proceed with the knee surgery at this point. We will proceed with a left knee replacement. I told her knee replacement surgery for patellofemoral arthritis is less predictable than the tibiofemoral arthritis and she is aware of this. I will replace her left knee. It is likely she will need hip surgery at some point in the future. The risks and benefits of total knee replacement were explained to the patient including but not limited to DVT, PE, , infection, neurological injury, vascular injury, bleeding problem, pain, limited range of motion, stiffness, failure to relieve her symptoms, incomplete relief of symptoms, need for further surgery in the future, fracture, leg length inequality, nerve palsy, and incomplete relief after surgery. The patient understands and desires to proceed. Informed consent was obtained. As far as discharge plans, she is planning to be discharged to home using [facility] home health program.
[~2018-09-03 08:32] MED LIST changes: +ACETAMINOPHEN 500 MG TAB PO SCH; +BUPIVACAINE 0.5 % 5 MG/1 ML PF 10ML VIAL ONE; +BUPIVACAINE LIPOSOME/PF 266 MG, BUPIVACAINE/EPINEPHRINE 50 ML, SODIUM CHLORIDE 0.9% 30 ... INFIL SCH; -BUPR200T2 PO; -CALC1TAB9 PO; +CEFAZOLIN 2000MG 2,000 MG/15 ML SYR IV SCH; -CHOL200010 PO; -COD1OIL4 PO; -DICY10CA12 PO; +EPINEPHrine INJ 1 MG/ML AMP ONE; -ESCI1TAB6 PO; +FAMOTIDINE 20 MG TAB PO SCH; -GABA-113 PO; +GABAPENTIN 300 MG PO SCH; -GLUCTAB7 PO; -HYDR-5688 PO; +LR 500ML BOLUS, THEN 15ML/HR IV SCH; +LR 60ML/HR IV SCH; +METOCLOPRAMIDE HCL 10 MG TABLET PO SCH; -MULTTAB58 PO; -NRN/300 PO; -OKRA PEPSIN PO; -PRLSR20 PO; +ROPIVACAINE 0.5% 5 MG/ML 30 ML VIAL ONE; +SCOPOLAMINE 1.5 MG TDSY TD SCH; -TAMO20TA9 PO; +TRANEXAMIC ACID 1,000 MG **IV Intra-op IV SCH; -TROL10LO PO
--- NOTE | 2018-09-03 08:52 | History & Physical Bridge Note ---
Date of Service September 03, 2018 History & Physical Bridge Note I have examined the patient, reviewed the History & Physical and in the interval since the performance of the History & Physical I have noted the following changes of clinical significance: no changes noted
[2018-09-03] MEDS ORDERED: CEFAZOLIN 2000MG 2,000 MG/15 ML SYR IV ONE (09:06)
[2018-09-03] MEDS ORDERED: MIDAZOLAM HCL 1 MG/ML 2ML VIAL ONE (09:28)
[2018-09-03] MEDS ORDERED: fentaNYL citrate 100 MCG/2 ML VIAL ONE ×2 (09:29→11:47)
[2018-09-03] MEDS ORDERED: SODIUM CHLORIDE 0.9% PF 50 ML VIAL ONE (10:29)
[2018-09-03] MEDS ORDERED: BACITRACIN INJ 50,000 UNIT VIAL ONE ×2 (10:29→10:30)
[2018-09-03] MEDS ORDERED: BUPIVACAINE LIPOSOME 1.3% 266 MG/20 ML VIAL ONE (10:29)
[2018-09-03] MEDS ORDERED: BUPIVACAINE 0.25% 30 ML VIAL ONE (10:31)
[2018-09-03] MEDS ORDERED: EPINEPHrine INJ 1 MG/ML AMP ONE (10:31)
[2018-09-03] MEDS ORDERED: ONDANSETRON INJ 2 MG/ML 2 ML VIAL IV PRN ×2 (11:24→14:34)
[2018-09-03] MEDS ORDERED: LABETALOL HCL IV 5 MG/ML 20ML IV PRN (11:24)
[2018-09-03] MEDS ORDERED: PROMETHAZINE HCL 12.5 MG in SODIUM CHLORIDE 0.9% 50 ML IV PRN (11:24)
[2018-09-03] MEDS ORDERED: NALOXONE HCL 0.4 MG/1 ML VIAL/CARP IV PRN ×2 (11:24→14:34)
[2018-09-03] MEDS ORDERED: ePHEDrine sulfate 50 MG/ML AMP IV PRN (11:24)
[2018-09-03] MEDS ORDERED: ATROPINE SULFATE 0.1 MG/ML 10ML SYR IV PRN (11:24)
[2018-09-03] MEDS ORDERED: ONDANSETRON INJ 2 MG/ML 2 ML VIAL ONE (11:30)
[2018-09-03] MEDS ORDERED: LIDOCAINE HCL 2% 2 ML VIAL/AMP(20MG/ML) INFIL ONE (11:30)
[2018-09-03] MEDS ORDERED: DEXAMETHASONE SOD INJ 4 MG/ML VIAL ONE (11:30)
[2018-09-03] MEDS ORDERED: PROPOFOL IV EMULSION 10 MG/ML 20 ML VIAL IV ONE (11:30)
--- NOTE | 2018-09-03 12:59 | Post Operative Brief Note ---
Immediate Post Op Note v1 Date of Surgery September 03, 2018 Pre & Post Diagnosis Operation Date: 09/03/18 10:40 Pre-Op Diagnosis: Left Knee ghrd-up-ynmzcalf tibiofemoral arthritis with advanced patellofemoral arthritis. Post-Op Diagnosis: Left Knee kinq-ev-gryftflp tibiofemoral arthritis with advanced patellofemoral arthritis. Procedure Operation Date: 09/03/18 10:40 Actual Procedures p Left Total Knee Arthroplasty(Left) - Frederic Soto MD Surgeon Frederic Soto MD Book Repairer Imelda, PAC Estimated Blood Loss 50 Findings Consistent with Post-Op Diagnosis Fluids 1200 cc Specimens Left Knee Drains Ramsey Catheter (16 Tajik Ramsey catheter inserted by Naveen Segura PA-C without difficulty. Clear yellow urine obtained- Anesthesia to monitor) Anesthesia Type Spinal MAC Complications none Disposition Accompanied Patient To Recovery: No Disposition: Recovery Room
[2018-09-03] MEDS: HYDROmorphone INJ 1 MG/ML SYRINGE IV PRN ×7 (13:20→13:50)
--- NOTE | 2018-09-03 14:02 | XRay Report ---
XR knee LT 2V routine CLINICAL HISTORY: Surgical Post Op COMPARISON: 03/05/2015 DISCUSSION: There are postsurgical changes of a total left knee arthroplasty and patellar resurfacing . The femoral tibial components appear well seated. Overlying skin jesenia are evident. There is air within the soft tissues consistent with recent surgery. IMPRESSION: Postsurgical changes of a total left knee arthroplasty. Electronically signed by: Mario Alberto Jimenez M.D. 09/03/2018 2:01 PM
[2018-09-03] MEDS ORDERED: METOCLOPRAMIDE HCL INJ 5 MG/ML 2 ML VIAL IV PRN (14:34)
[2018-09-03] MEDS ORDERED: ALUMINUM/MAGNESIUM SUSP 30 ML UDC PO PRN (14:34)
[2018-09-03] MEDS ORDERED: MAGNESIUM HYDROXIDE SUSP 30 ML UDC PO PRN (14:34)
[2018-09-03] MEDS ORDERED: BISACODYL 10 MG SUPP PR PRN (14:34)
[2018-09-03] MEDS ORDERED: HYDROmorphone INJ 0.5 MG/0.5 ML SYR IV PRN (14:34)
--- NOTE | 2018-09-03 15:35 | Anesthesiology Progress Note ---
Date of Service September 03, 2018 Anesthesia Post Procedure Vital Signs Vital Signs: Temp Pulse Pulse Resp BP Pulse Ox 09/03/18 14:05 36.8 C 82 18 166/78 H 94 09/03/18 13:55 36.8 C 85 18 168/80 H 94 09/03/18 13:45 81 18 172/79 H 96 09/03/18 13:35 80 18 174/85 H 99 09/03/18 13:25 79 18 156/69 H 100 09/03/18 13:15 79 18 181/93 H 97 09/03/18 13:07 36.7 C 79 18 172/98 H 97 09/03/18 09:28 36.8 C 60 18 150/79 H 96 Pain Intensity Left Knee: Pain Intensity: 4 Transfer of Care Handoff Completed per policy Notes Mental Status: alert / awake / arousable Patient Amnestic to Procedure: Yes Nausea / Vomiting: adequately controlled Pain: adequately controlled Airway Patency, RR, SpO2: stable & adequate BP & HR: stable & adequate Hydration State: stable & adequate Anesthetic Complications: no major complications apparent
[2018-09-03] MEDS: CHECK SCOPOLAMINE PATCH PLACEMENT SCH (16:59)
[2018-09-03] MEDS: ACETAMINOPHEN 500 MG TAB PO SCH ×2 (17:00→20:48)
[2018-09-03] MEDS: KETOROLAC TROMETHAMINE 15 MG/ML VIAL IV SCH ×2 (17:00→20:48)
--- NOTE | 2018-09-03 17:47 | Progress Note ---
DATE: 09/03/2018 SUBJECTIVE: A 67-year-old white female postop from a left knee replacement. She is doing pretty well. Not having any pain yet. Still feeling pretty groggy and just tired and worn out and having trouble staying awake. No chest pain or shortness of breath. Not feeling dizzy or lightheaded. OBJECTIVE: VITAL SIGNS: Temperature 36.3. Vital signs stable. PHYSICAL EXAMINATION: GENERAL: Reveals a pleasant, middle-aged female. She is lying in bed and talking to her . Looks pretty comfortable. LUNGS: Clear to auscultation. HEART: Regular rate and rhythm. ABDOMEN: Soft, nontender, nondistended. EXTREMITIES: Grossly neurovascularly intact except as follows: Examination of the left lower extremity reveals the leg to be well aligned. Dressing is clean, dry and intact. She can dorsiflex and plantarflex her foot appropriately. She is neurologically intact. X-RAYS: X-rays apparently not done in the recovery room. ASSESSMENT: A 67-year-old white female postoperative from a left knee replacement, doing pretty well. Her pain is controlled. She is neurologically intact. PLAN: 1. DVT prophylaxis including thigh-high TEDs, SCDs, and aspirin twice a day. 2. PT/OT. Weight bear as tolerated. Left total knee protocol. 3. Pain control, doing pretty well with current pain regimen. 4. Disposition: She is planning to be discharged to home likely with some home health once adequately recovered.
[2018-09-03] MEDS: FERROUS GLUCONATE 324 MG TAB PO SCH (18:33)
[2018-09-03] MEDS: CEFAZOLIN 1000MG 1,000 MG/7.5 ML SYR IV SCH (18:33)
[2018-09-03] MEDS: SODIUM CHLORIDE 0.9% 1000ML 1,000 ML IV SCH (18:33)
[2018-09-03] MEDS: ASCORBIC ACID 500 MG TAB PO SCH (18:34)
[2018-09-03] MEDS ORDERED: TRANEXAMIC ACID 1,000 MG in 0.9 % SODIUM CHLORIDE 100 ML IV SCH (19:00)
[2018-09-03] MEDS: GABAPENTIN 600 MG TAB PO SCH (20:48)
[2018-09-03] MEDS: SENNA 8.6 MG TAB PO SCH (20:48)
[2018-09-03] MEDS: DOCUSATE SODIUM 100 MG CAP PO SCH (20:48)
[2018-09-03] MEDS: ESCITALOPRAM OXALATE 10 MG TAB PO SCH (20:48)
[2018-09-03] MEDS: BuPROPion SR 100 MG TABCR PO SCH (20:48)
[2018-09-03] MEDS: TAPENTADOL HCL ER 50 MG TABCR PO SCH (20:48)
[2018-09-03] MEDS: CHOLECALCIFEROL 1,000 UNITS TAB PO SCH (20:48)
[2018-09-03] MEDS: ASPIRIN 81 MG ECTAB PO SCH (20:48)
[2018-09-03] MEDS: CALCIUM 600MG + VIT D 400 IU TAB PO SCH (20:48)
[2018-09-03] MEDS ORDERED: NON-FORMULARY MEDICATION (Docusate Sodium [Stool Softener] 50 MG) PO SCH (21:00)
--- NOTE | 2018-09-03 23:56 | Operative Report ---
DATE OF OPERATION: 09/03/2018 DATE OF PROCEDURE: 09/03/2018 SURGEON: Frederic Soto MD PRIMARY CARE COORDINATOR: JOHANA Velarde PREOPERATIVE DIAGNOSIS: Left knee degenerative joint disease. POSTOPERATIVE DIAGNOSIS: Left knee degenerative joint disease. PROCEDURE PERFORMED: Left cemented posterior stabilized total knee arthroplasty. COMPLICATIONS: None. ESTIMATED BLOOD LOSS: 50 mL. FLUID REPLACEMENT: 1200 mL crystalloid fluid replacement. ANESTHESIA: General with adductor canal block. DRAINS: None. SPECIMENS: Left knee sent for pathology. OPERATIVE INDICATIONS: The patient is a 67-year-old female who has had a long history of left knee pain and discomfort, unresponsive to conservative care. The patient has a history of MS, currently in remission. She has been through extensive conservative treatment. She has advanced patellofemoral arthritis and moderate tibiofemoral arthritis. She elected to proceed with total knee arthroplasty. OPERATIVE FINDINGS: Operative findings revealed advanced left knee grade 4 hqqr-gr-jynq disease of the medial patellofemoral joint with eburnation. She has some focal grade 4 changes in the medial compartment as well as the lateral compartment, but no eburnation. She had a moderate sized joint effusion. She had about a 10-15 degree flexion contracture. OPERATIVE IMPLANTS: Operative implants consists of 1. Biomet Vanguard size 60 left posterior stabilized femoral component. 2. Biomet size 71 tibial tray. 3. A 10 mm posterior stabilized polyethylene insert. 4. A 25 x 8 all poly patella. OPERATIVE PROCEDURE: The patient taken to the operating room, identified and placed on the operating table in supine position. All contact areas were appropriately padded. IV antibiotics were provided by anesthesia team. An adductor canal block had been provided in the holding area. A general anesthetic was implemented by anesthesia team due to her history of multiple sclerosis. Ramsey catheter was placed in sterile fashion. Left thigh tourniquet was then placed and left lower extremity was then prepped and draped in usual sterile fashion. The left leg was elevated and exsanguinated with Esmarch and tourniquet was placed at 300 mmHg. An anterior approach to the left knee was then performed through a longitudinal incision centered over the patella. Sharp dissection was carried out at the subcutaneous tissue down to the level of the extensor mechanism. A medial parapatellar arthrotomy incision was made. Some subperiosteal dissection was carried out medially. The fat pad resected from beneath the patellar tendon. Lateral patellofemoral ligament was released. The patella was everted and knee was flexed. The osteophytes were taken off the distal femur. The ACL and PCL were released from the distal femur and the tibia subluxated anteriorly. The external tibial alignment jig was then placed in the anterior face of the tibia and adjusted 14 mm medially. Proximal tibial cut was made to remove about 2 mm of bone from the most deficient aspect of the medial tibial plateau. Her bone was pretty soft and I did not want to take more bone than absolutely necessary. Some osteophytes were taken off medial and posteromedially. The tibia was sized to a size 71. Try to maximize tibial coverage. Attention was then drawn to the femur. The distal femur was entered with a sharp drill bit. Intramedullary canal was suctioned. The left 5 degree valgus cutting guide was placed. Distal cutting block was pinned in place. Distal femoral cut was made to take an additional 3 mm of bone off the distal femur to account for her flexion contracture. The femur was then sized to a size 60. We did downsize this slightly. The AP cutting block was pinned parallel to the epicondylar axis, which was 9 degrees of external rotation. The anterior cut, anterior chamfer, posterior cut, posterior chamfer cuts were made. Box cutting guide was placed. The knee was flexed. The remnants of medial and lateral menisci were excised. The osteophytes were taken off the posterior aspect of the femur. A trial femoral component was placed at the tibial tray was pinned in maximum external rotation and the drill and stem punch were used to create defect in proximal tibial tray. The knee was then trialed and the 10 mm insert fit most appropriately. Attention was then turned to patella. The patella was cleaned of all soft tissues. The patella thickness measured 18 mm in thickness and was cut down to 12. It was sized to a size 28 patella. The lateral osteophyte was removed. The patella button was placed. Knee was taken through range of motion and the patella tracked nicely with no thumbs test. Attention was then drawn toward placement of permanent components. All trial components were removed. A bone plug was placed in the distal femur to limit blood loss. A double batch [place] G cement was mixed with Biomet Vanguard size 60 left posterior stabilized femoral component, a 25 x 8 all poly patella were then cemented in place. Knee was brought out into full extension until cement hardened. A final cement check was then performed. Pericapsular tissues were injected with 100 mL with a combination of 20 mL of Exparel, 30 mL of normal saline, 50 mL of 0.25% Marcaine with epinephrine. The patient did receive 1 gram of tranexamic acid. The tourniquet was then let down for final tourniquet time of 55 minutes. Hemostasis was assured with electrocautery. The extensor mechanism was then closed with a combination of #1 PDS suture and #1 Vicryl suture in a [id number]-[id number] fashion. The extensor mechanism was checked and found to be intact. The subcutaneous tissue then closed with #2 Dexon suture in a buried interrupted fashion. Skin was closed with skin jesenia. Leg was then cleaned and dried and a sterile dressing with Xeroform, 4 x 4, sterile cast padding and Darnell bandage was applied. The patient then brought out of general anesthesia and transferred to the recovery room in stable condition. The patient tolerated the procedure well with no complications. All needle and sponge counts were correct at the end of the operation. I attest to the content of the Intraoperative Record and any orders documented therein. Any exceptions are noted below. RIKKI
[2018-09-04] MEDS: CHECK SCOPOLAMINE PATCH PLACEMENT SCH (00:01)
[2018-09-04] MEDS: [UNRECOGNIZED DRUG - REMARK] SCH ×4 (00:01→23:39)
[2018-09-04] MEDS: KETOROLAC TROMETHAMINE 15 MG/ML VIAL IV SCH ×4 (03:30→21:49)
[2018-09-04] MEDS: CEFAZOLIN 1000MG 1,000 MG/7.5 ML SYR IV SCH (03:30)
[2018-09-04] MEDS: SODIUM CHLORIDE 0.9% 1000ML 1,000 ML IV SCH (05:04)
[2018-09-04] MEDS: ACETAMINOPHEN 500 MG TAB PO SCH ×3 (06:14→21:46)
[2018-09-04 07:16] LABS: Hematocrit (blood only) 34.1 % (37-47); Hemoglobin 11.1 g/dL (12.0-16.0); Mean Corpuscular Hgb Conc 32.6 g/dL (32-36); Mean Corpuscular Volume 94.5 fL (80-100); Platelet Count 137 K/uL (130-400); RDW Coefficient of Variation 12.9 % (11.5-14.5); RDW Standard Deviation 44.4 fL (36.4-46.3); Red Blood Count 3.61 M/uL (4.2-5.4); White Blood Count 6.78 K/uL (4.8-10.8)
[2018-09-04 07:51] LABS: BUN Creatinine Ratio 14.8 (10-20); Calcium 7.7 mg/dl (8.5-10.1); Creatinine Clr Calc Pharmacy 47.1 ml/min; Est GFR (African American) 57.6; Est GFR (Non-African American) 49.7; Potassium 3.9 mmol/L (3.5-5.1)
--- NOTE | 2018-09-04 08:13 | Anesthesiology Progress Note ---
Date of Service September 04, 2018 Anesthesia Post Procedure Vital Signs Vital Signs: Temp Pulse Pulse Pulse Resp BP Pulse Ox 09/04/18 07:11 36.8 C 66 18 119/67 96 09/04/18 03:05 37.0 C 74 16 154/79 H 95 09/03/18 23:19 37.0 C 82 16 146/71 H 97 09/03/18 19:40 36.9 C 75 16 126/72 94 09/03/18 18:38 94 09/03/18 17:27 36.3 C L 81 16 147/74 H 97 09/03/18 16:24 83 16 148/79 H 96 09/03/18 15:25 37.0 C 82 17 145/75 H 96 09/03/18 14:41 85 18 150/76 H 97 09/03/18 14:15 36.8 C 87 16 165/74 H 96 09/03/18 14:05 36.8 C 82 18 166/78 H 94 09/03/18 13:55 36.8 C 85 18 168/80 H 94 09/03/18 13:45 81 18 172/79 H 96 09/03/18 13:35 80 18 174/85 H 99 09/03/18 13:25 79 18 156/69 H 100 09/03/18 13:15 79 18 181/93 H 97 09/03/18 13:07 36.7 C 79 18 172/98 H 97 09/03/18 09:28 36.8 C 60 18 150/79 H 96 Pain Intensity Left Knee: Pain Intensity: 5 Notes Mental Status: alert / awake / arousable and participated in evaluation Patient Amnestic to Procedure: Yes Nausea / Vomiting: adequately controlled Pain: adequately controlled Airway Patency, RR, SpO2: stable & adequate BP & HR: stable & adequate Hydration State: stable & adequate Anesthetic Complications: no major complications apparent
[2018-09-04] MEDS: PANTOprazole 40 MG TAB PO SCH (08:22)
[2018-09-04] MEDS ORDERED: NON-FORMULARY MEDICATION (Multivitamin 1 CAP) PO SCH (09:00)
[2018-09-04] MEDS: FERROUS GLUCONATE 324 MG TAB PO SCH ×3 (09:16→16:30)
[2018-09-04] MEDS: ASCORBIC ACID 500 MG TAB PO SCH ×2 (09:18→16:29)
[2018-09-04] MEDS: DOCUSATE SODIUM 100 MG CAP PO SCH ×2 (09:19→21:45)
[2018-09-04] MEDS: CALCIUM 600MG + VIT D 400 IU TAB PO SCH ×2 (09:19→21:45)
[2018-09-04] MEDS: ASPIRIN 81 MG ECTAB PO SCH ×2 (09:19→21:47)
[2018-09-04] MEDS: GABAPENTIN 300 MG CAP PO SCH (09:20)
[2018-09-04] MEDS: CHOLECALCIFEROL 1,000 UNITS TAB PO SCH ×2 (09:20→21:47)
[2018-09-04] MEDS: MULTIVITAMIN TAB PO SCH (09:20)
[2018-09-04] MEDS: BuPROPion SR 100 MG TABCR PO SCH ×2 (09:21→21:46)
[2018-09-04] MEDS: OXYCODONE HCL IR 5 MG TAB (IMMEDIATE RELEASE) PO PRN ×2 (09:21→21:44)
[2018-09-04] MEDS: TAMOXIFEN CITRATE 10 MG TABLET PO SCH (09:23)
[2018-09-04] MEDS: TAPENTADOL HCL ER 50 MG TABCR PO SCH ×2 (09:24→21:44)
--- NOTE | 2018-09-04 13:37 | Progress Note ---
DATE: 09/04/2018 SUBJECTIVE: A 68-year-old white female postop day 1 from left knee replacement. She is doing remarkably well. Pain has been well controlled. No chest pain or shortness of breath. Not feeling dizzy or lightheaded. OBJECTIVE: VITAL SIGNS: Temperature 36.8. Vital signs stable. GENERAL: Physical examination shows a pleasant, middle-aged female. She is sitting up in her bed and looks pretty comfortable. EXTREMITIES: Examination of the left leg reveals the leg to be well aligned. Dressing is clean, dry and intact. She can dorsiflex and plantarflex her foot appropriately. She is neurologically intact. LABORATORY DATA: Hemoglobin is 11.1. Hematocrit 34.1. Electrolytes are stable. ASSESSMENT: A 68-year-old white female postop day 1 from left knee replacement, doing pretty well. Pain is controlled. She is neurologically intact. PLAN: 1. DVT prophylaxis including thigh-high TEDs, SCDs, and aspirin twice a day. 2. PT/OT. Weight bear as tolerated. Left total knee protocol. 3. Pain control, doing pretty well with current pain regimen. 4. Disposition: She is planning to be discharged to home likely with some home health once adequately recovered.
[2018-09-04] MEDS: ESCITALOPRAM OXALATE 10 MG TAB PO SCH (21:45)
[2018-09-04] MEDS: SENNA 8.6 MG TAB PO SCH (21:48)
[2018-09-04] MEDS: GABAPENTIN 600 MG TAB PO SCH (21:50)
[2018-09-05] MEDS: KETOROLAC TROMETHAMINE 15 MG/ML VIAL IV SCH ×2 (04:12→10:47)
[2018-09-05] MEDS: ACETAMINOPHEN 500 MG TAB PO SCH (05:53)
[2018-09-05] MEDS: OXYCODONE HCL IR 5 MG TAB (IMMEDIATE RELEASE) PO PRN (08:14)
[2018-09-05] MEDS: ASCORBIC ACID 500 MG TAB PO SCH (08:16)
[2018-09-05] MEDS: BuPROPion SR 100 MG TABCR PO SCH (08:16)
[2018-09-05] MEDS: MULTIVITAMIN TAB PO SCH (08:17)
[2018-09-05] MEDS: CHOLECALCIFEROL 1,000 UNITS TAB PO SCH (08:17)
[2018-09-05] MEDS: PANTOprazole 40 MG TAB PO SCH (08:17)
[2018-09-05] MEDS: DOCUSATE SODIUM 100 MG CAP PO SCH (08:17)
[2018-09-05] MEDS: ASPIRIN 81 MG ECTAB PO SCH (08:17)
[2018-09-05] MEDS: CALCIUM 600MG + VIT D 400 IU TAB PO SCH (08:17)
--- NOTE | 2018-09-05 08:17 | Progress Note ---
DATE: 09/05/2018 SUBJECTIVE: A 68-year-old female postop day 2 from a left knee replacement. She is doing quite well. Pain is controlled. She is doing well in therapy. No chest pain or shortness of breath. Not feeling dizzy or lightheaded. OBJECTIVE: VITAL SIGNS: Temperature 36.7. Vital signs stable. GENERAL: Physical examination reveals a pleasant elderly female. She is walking around the room with a walker, doing quite well this morning. EXTREMITIES: Examination of the left leg reveals the dressing to be clean, dry and intact. The leg is well aligned. Calf is soft and supple. NEUROLOGIC: She is neurologically intact. ASSESSMENT: A 68-year-old female postop day 2 from left knee replacement, doing pretty well. Pain is controlled. Therapy is going well. PLAN: 1. DVT prophylaxis including thigh-high TEDs, SCDs, and aspirin twice a day. 2. PT/OT. Weight bear as tolerated. Left total knee protocol. 3. Pain control, doing pretty well with current pain regimen. 4. Disposition: Plan to discharge her home with some home health later today.
[2018-09-05] MEDS: FERROUS GLUCONATE 324 MG TAB PO SCH (08:18)
[2018-09-05] MEDS: TAMOXIFEN CITRATE 10 MG TABLET PO SCH (08:20)
[2018-09-05] MEDS: TAPENTADOL HCL ER 50 MG TABCR PO SCH (08:21)
[2018-09-05] MEDS: [UNRECOGNIZED DRUG - REMARK] SCH (10:18)
[2018-09-05] MEDS: GABAPENTIN 300 MG CAP PO SCH (10:47)
--- NOTE | 2018-09-10 01:18 | Discharge Summary ---
ADMITTING PHYSICIAN AND SURGEON: Frederic Soto MD ADMITTING DIAGNOSIS: Left knee degenerative joint disease. SURGERY PERFORMED: Left total knee arthroplasty. SECONDARY DIAGNOSES: Heart murmur, depression, neuropathy, questionable multiple sclerosis, hiatal hernia, low back pain and breast cancer. CONSULTS: None obtained. HISTORY AND PHYSICAL EXAMINATION: Well documented in the patient's chart. HOSPITAL COURSE: The patient was admitted on 09/03/2018 underwent total knee arthroplasty, tolerated the procedure well. There were no complications. She was transferred to the PACU postoperatively and later to the orthopedic floor for further care. She was given Ancef for antibiotic prophylaxis, ALCIRA stockings, sequential compression devices and aspirin for deep venous thrombosis prophylaxis. Hemoglobin and hematocrit and vital signs were monitored during hospital stay and remained stable. She did not require blood transfusions. There were no complications. On postoperative day 2, she was tolerating a regular diet, pain was controlled with oral pain medicine. She was participating in physical therapy. On postoperative day 2, she was discharged home, set up with home health services. She was given printed discharge instructions including new prescriptions for extra strength Tylenol, aspirin and oxycodone. Continue home medicines with exception of home dose of Tylenol, which was changed and [place] which was stopped. Continue physical therapy, weightbearing as tolerated, ALCIRA stockings and follow up approximately 2 weeks postoperative or sooner if any problems or concerns.
== END 2018-09-05 12:32 | disposition home health service (06) | DRG 470 ==
LOC: ASU 08:32 → 3E 13:03

== ENCOUNTER 2019-02-02 17:14 | Inpatient (IN) ==
[2019-02-02] MEDS ORDERED: ONDANSETRON INJ 2 MG/ML 2 ML VIAL IV STA ×2 (17:44→20:06)
[2019-02-02] MEDS ORDERED: SODIUM CHLORIDE 0.9% 1000ML 1,000 ML IV SCH (17:45)
[2019-02-02] MEDS ORDERED: ACETAMINOPHEN 1,000 MG/100 ML VIAL IV STA (17:46)
[2019-02-02 18:11] LABS: Basophils # (auto) 0.01 K/uL (0-0.2); Basophils % (auto) 0.3 %; Eosinophils # (auto) 0.14 K/uL (0-0.5); Eosinophils % (auto) 3.6 %; Hematocrit (blood only) 39.8 % (37-47); Hemoglobin 13.2 g/dL (12.0-16.0); Lymphocytes # (auto) 1.42 K/uL (1.2-3.4); Lymphocytes % (auto) 36.6 %; Mean Corpuscular Hemoglobin 31.4 pg (25-34); Mean Corpuscular Hgb Conc 33.2 g/dL (32-36); Mean Corpuscular Volume 94.8 fL (80-100); Mean Platelet Volume 9.9 fL (7.4-10.4); Monocytes # (auto) 0.33 K/uL (0.11-0.59); Monocytes % (auto) 8.5 %; Neutrophils # (auto) 1.98 K/uL (1.4-6.5); Platelet Count 157 K/uL (130-400); RDW Coefficient of Variation 13.2 % (11.5-14.5); RDW Standard Deviation 45.9 fL (36.4-46.3); White Blood Count 3.88 K/uL (4.8-10.8)
--- NOTE | 2019-02-02 18:14 | XRay Report ---
XR chest 1V portable CLINICAL HISTORY: Atypical chest pain COMPARISON STUDY: 08/02/2018 FINDINGS: The cardiac and mediastinal contours are normal. There is no evidence of focal pulmonary co nsolidation. There is no evidence of failure. No pleural effusions are visualized.[The patient appear s mildly hyperexpanded IMPRESSION: No active disease in the chest. Electronically signed by: Mario Alberto Jimenez M.D. 02/02/2019 6:13 PM
[2019-02-02] MEDS ORDERED: HYDROmorphone INJ 0.5 MG/0.5 ML SYR IV STA ×2 (18:16→20:06)
[2019-02-02] MEDS ORDERED: METOCLOPRAMIDE HCL INJ 5 MG/ML 2 ML VIAL IV STA (18:16)
[2019-02-02 18:28] LABS: Alanine Aminotransferase 24 U/L (12-78); Albumin Level 3.7 gm/dl (3.4-5.0); Aspartate Aminotransferase 16 U/L (15-37); BUN Creatinine Ratio 15.9 (10-20); Blood Urea Nitrogen 20 mg/dl (7-18); Calcium 8.7 mg/dl (8.5-10.1); Carbon Dioxide 28 mmol/L (21-32); Chloride 106 mmol/L (98-107); Est GFR (African American) 50.5; Est GFR (Non-African American) 43.5; Glucose 133 mg/dl (70-99); Lipase 171 U/L (73-393); Potassium 4.1 mmol/L (3.5-5.1); Sodium 141 mmol/L (136-145)
[2019-02-02 18:33] LABS: Albumin Globulin Ratio 1.1 (0.9-2); Alkaline Phosphatase 55 U/L (45-117); Bilirubin,Total 0.2 mg/dl (0.2-1); Creatine Kinase 77 U/L (26-192); Creatine Kinase MB 1.5 ng/ml (0.5-3.6); Globulin 3.5 gm/dl (2.5-4.0); Total Protein 7.2 gm/dl (6.4-8.2); Troponin I < 0.015 ng/ml (0-0.045)
--- NOTE | 2019-02-02 19:37 | Ultrasound Report ---
BILIARY ULTRASOUND CLINICAL HISTORY: Right upper quadrant abdominal pain COMPARISON STUDY: December 07, 2017 FINDINGS: The pancreas appears sonographically normal. No hepatic masses are visualized. There is slight increase in hepatic echogenicity. There is focal fa tty sparing adjacent to gallbladder fossa. Multiple gallstones are visualized. There is trace pericholecystic fluid. There is borderline gallbla dder wall thickening. There is no ductal dilatation. The common bile duct measures 4 mm. There is no right-sided hydronephrosis. There is an extrarenal pelvis. IMPRESSION: 1. Mild gallbladder distention. Cholelithiasis. Borderline gallbladder wall thickening and trace bijan cholecystic fluid. Clinical correlation in regards to acute cholecystitis is recommended. If clinical ly indicated, a nuclear medicine hepatic biliary study could be performed to assess cystic duct patlesley echevarria Electronically signed by: Mario Alberto Jimenez M.D. 02/02/2019 7:36 PM
[2019-02-02] MEDS ORDERED: IOVERSOL 100ml IV PRN (19:47)
[2019-02-02] MEDS ORDERED: cefOXitin 2,000 MG/60 ML BAG IV STA (19:54)
--- NOTE | 2019-02-02 20:13 | CT Scan Report ---
CT abd pelvis IV con only CLINICAL HISTORY: Epigastric pain COMPARISON STUDY: 03/09/2015, ultrasound dated 02/02/2019 TECHNIQUE: The patient was scanned in a dynamic helical fashion during intravenous administration of 94 cc of Optiray 320. A dose lowering technique was utilized adhering to the principles of ALARA. CT DOSE: 506.68 mGy.cm FINDINGS: Lower chest: There are mild dependent atelectatic changes. Liver: The contrast-enhanced liver is normal in size, contour, and attenuation. There is no intrahepa tic biliary ductal dilatation. The hepatic veins and portal veins are patent. Gallbladder: Gallstones visualized on the ultrasound study are nonvisible on CT scanning. There is no significant pericholecystic infiltration. Spleen: Normal in size and attenuation. Pancreas: Unremarkable. Adrenal glands: Unremarkable. Kidneys: There is symmetric renal cortical enhancement. The kidneys are normal in size without hydron ephrosis. Bowel: There are no transition zones to indicate bowel obstruction. The appendix appears normal. Ther e is no acute diverticulitis. There is mild fecal retention. Peritoneum: There is no intraperitoneal free air or abdominal ascites. Vasculature: The abdominal aorta is normal in course and caliber. Adenopathy: None. Pelvic viscera: The bladder, and pelvic viscera are unremarkable. Skeletal structures: Moderately advanced arthritic changes are present within the hips. IMPRESSION: 1. No evidence of bowel obstruction. No evidence of free air 2. Normal appendix. No evidence of acute diverticulitis 3. Multiple gallstones described in the prior ultrasound study cannot be visualized on CT scanning. T here is no significant infiltration of the pericholecystic fat. Electronically signed by: Mario Alberto Jimenez M.D. 02/02/2019 8:12 PM
[2019-02-02] MEDS ORDERED: MoRPHine SULFATE 4 MG/ML 1 ML CARP\\VIAL IV PRN (22:43)
[2019-02-02] MEDS ORDERED: MoRPHine SULFATE 2 MG/ML CARP IV PRN (22:43)
--- NOTE | 2019-02-02 23:07 | History & Physical Report ---
Date of Service February 02, 2019 Assessment & Plan (1) Acute cholecystitis: Admit Med/surg IVF Mefoxin 2 gram IV Q 8 hours Surgery consult (2) Cholelithiasis: Symptomatic Pain and nausea control (3) Multiple sclerosis: Follows with neurology Has been stable She was taken off suppressive therapy when developed breast CA. (4) Breast cancer: In remission Continue tamoxifen (5) Leukopenia: Chronic and at baseline Patient reports this is due to her use of tamoxifen. History of Present Illness 68 y/o female presented with the ED with severe epigastric pain that started at 1600 today following a meal. Pain was associated with nausea and 1 episode of vomiting. The pain radiated to between her shoulder blades. She recalls being told that she had gallstones in the past. No F/C, cough, SOB, Chest pain, diarrhea, or lightheadedness. Primary Care Provider: Isadora Pacheco MD Allergies Allergy/AdvReac Type Severity Reaction Status Date / Time Penicillins Allergy Intermediate HIVES Verified 02/17/19 13:18 clonazepam Allergy Unknown Depression; Verified 02/17/19 13:18 tetracycline AdvReac Intermediate rash Verified 02/17/19 13:18 zolpidem AdvReac Intermediate sleep Verified 02/17/19 13:18 eating episodes adhesive AdvReac Mild skin Verified 02/17/19 13:18 tears, skin blisters erythromycin base AdvReac Mild GI SYMPTOMS Verified 02/17/19 13:18 Home Medications Home Medications Medication Instructions Recorded Confirmed Type Stool Softener 50 mg PO HS 07/29/18 02/11/19 History bupropion HCl [Wellbutrin SR] 200 mg PO BID 07/29/18 02/11/19 History calcium-vitamin D3-vitamin K 1 tab PO QAM 07/29/18 02/11/19 History [Viactiv] cholecalciferol (vitamin D3) 2,000 unit PO BID 07/29/18 02/11/19 History [Vitamin D3] doxylamine succinate 12.5 mg PO HS PRN 07/29/18 02/11/19 History ibuprofen 200 mg PO QAM 07/29/18 02/11/19 History melatonin 10 mg PO HS PRN 07/29/18 02/11/19 History multivitamin 1 cap PO QAM 07/29/18 02/11/19 History omega 1-hdx-afs-fish oil [Fish Oil] 1 cap PO QAM 07/29/18 02/11/19 History tamoxifen 20 mg PO QAM 07/29/18 02/11/19 History methylcellulose (laxative) 500 mg 500 mg PO HS 12/16/18 02/11/19 History tablet hydrocodone 5 mg-acetaminophen 325 0.5 tab PO HS #30 tab 01/12/19 02/11/19 Rx mg tablet gabapentin 300 mg capsule 300 mg PO TID cap 01/27/19 02/11/19 History dicyclomine 10 mg PO DAILY PRN 02/02/19 02/11/19 History escitalopram oxalate 20 mg PO QAM 02/02/19 02/11/19 History meclizine 25 mg tablet 25 mg PO TID PRN #90 tab 02/10/19 02/11/19 Rx omeprazole 20 mg tablet,delayed 20 mg PO BID #60 tab 02/11/19 02/11/19 Rx release Past Med/Surg History Medical History Anxiety Chronic leukopenia Ever since chemotherapy Depression GERD (gastroesophageal reflux disease) History of breast cancer 5 YEARS AGO. LUMPECTOMY, CHEMO AND RADIATION. History of neuropathy S/T CHEMO TREATMENT. Multiple sclerosis REMISSION. FOLLOWS WITH DR. PARADA, [facility] [place] [facility]. Osteoarthritis Vertigo Exacerbated by sitting up too fast and turning to left side while laying down Surgical History History of adenoidectomy History of breast lump removal History of cataract extraction with lens replacement History of colonoscopy History of dental surgery History of dilatation and curettage History of esophagogastroduodenoscopy (EGD) History of tonsillectomy Social History Preferred Language: Vietnamese Communication Ability: Effective Visual Impairment: No Limitations Hearing Ability: Normal Associate Financial Representative Required: No Beliefs That Will Affect Care: None marital status: Current Living Situation: Spouse Feels Safe at Home: Yes Smoking Status: Never smoker Second Hand Exposure: No ; Hx Alcohol Use: Yes Alcohol type: wine Hx Substance Use: No Review of Systems Review of Systems: Constitutional- no fever; no weight loss Eyes- no acute visual changes ENT- no sinus drainage; no pharyngitis Pulmonary- no cough, no wheezing, no shortness of breath Cardiac- no chest pain, no palpitations, no orthopnea. + mild intermittent left ankle edema since left knee replacement. GI- As in HPI. - no dysuria, no hematuria Musculoskeletal- no arthralgias, no myalgias Derm- no rashes, no new skin lesions, no changing skin lesions Hematologic- no unusual bruising, no unusual bleeding Lymphatics- no adenopathy Endocrine- no polyuria or polydipsia; no heat or cold intolerance Neuro- no headaches, no focal neurologic symptoms Psych- no anxiety, no depression Physical Exam Physical Exam: General- adult female, NAD Head- atraumatic Eyes- PERRL, EOMI, anicteric ENT- oropharynx clear Neck- supple, no JVD, no adenopathy, no thyromegaly. Lungs- clear to auscultation b/l no R/R/W Heart- regular rhythm; no murmur, no gallop, no rub appreciated Abdomen- normal bowel sounds, soft, + tenderness RUQ with palpation. 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 Skin- warm & dry Results & Data Vital Signs (Past 12 Hours) Vital Signs Temp Pulse Pulse Resp BP BP Pulse Ox 02/02/19 22:44 36.9 C 61 18 154/69 H 93 02/02/19 22:06 61 16 136/88 95 02/02/19 21:30 70 21 164/81 H 97 02/02/19 21:00 67 16 150/79 H 92 02/02/19 20:41 55 L 24 162/73 H 96 02/02/19 18:29 67 16 159/84 H 98 02/02/19 18:00 99 02/02/19 17:32 60 14 171/67 H 99 02/02/19 17:17 36.9 C 68 20 147/81 H 98 Laboratory Results Laboratory Results WBC 3.88 K/uL (4.8-10.8) L 02/02/19 18:00 RBC 4.20 M/uL (4.2-5.4) 02/02/19 18:00 Hgb 13.2 g/dL (12.0-16.0) 02/02/19 18:00 Hct 39.8 % (37-47) 02/02/19 18:00 MCV 94.8 fL (80-100) 02/02/19 18:00 MCH 31.4 pg (25-34) 02/02/19 18:00 MCHC 33.2 g/dL (32-36) 02/02/19 18:00 RDW Std Deviation 45.9 fL (36.4-46.3) 02/02/19 18:00 RDW Coeff of Phani 13.2 % (11.5-14.5) 02/02/19 18:00 Plt Count 157 K/uL (130-400) 02/02/19 18:00 MPV 9.9 fL (7.4-10.4) 02/02/19 18:00 Immature Gran % (Auto) 0.0 % 02/02/19 18:00 Neut % (Auto) 51.0 % 02/02/19 18:00 Lymph % (Auto) 36.6 % 02/02/19 18:00 Routt % (Auto) 8.5 % 02/02/19 18:00 Eos % (Auto) 3.6 % 02/02/19 18:00 Baso % (Auto) 0.3 % 02/02/19 18:00 Immature Gran # (Auto) 0.00 K/uL (0.00-0.02) 02/02/19 18:00 Neut # (Auto) 1.98 K/uL (1.4-6.5) 02/02/19 18:00 Lymph # (Auto) 1.42 K/uL (1.2-3.4) 02/02/19 18:00 Routt # (Auto) 0.33 K/uL (0.11-0.59) 02/02/19 18:00 Eos # (Auto) 0.14 K/uL (0-0.5) 02/02/19 18:00 Baso # (Auto) 0.01 K/uL (0-0.2) 02/02/19 18:00 Sodium 141 mmol/L (136-145) 02/02/19 18:00 Potassium 4.1 mmol/L (3.5-5.1) 02/02/19 18:00 Chloride 106 mmol/L (98-107) 02/02/19 18:00 Carbon Dioxide 28 mmol/L (21-32) 02/02/19 18:00 Anion Gap 7.0 (3-11) 02/02/19 18:00 BUN 20 mg/dl (7-18) H 02/02/19 18:00 Creatinine 1.25 mg/dl (0.6-1.2) H 02/02/19 18:00 Est Cr Clr Drug Dosing Not Reportable 02/02/19 18:00 Est GFR ( Amer) 50.5 02/02/19 18:00 Est GFR (Non-Af Amer) 43.5 02/02/19 18:00 BUN/Creatinine Ratio 15.9 (10-20) 02/02/19 18:00 Glucose 133 mg/dl (70-99) H 02/02/19 18:00 Calcium 8.7 mg/dl (8.5-10.1) 02/02/19 18:00 Total Bilirubin 0.2 mg/dl (0.2-1) 02/02/19 18:00 AST 16 U/L (15-37) 02/02/19 18:00 ALT 24 U/L (12-78) 02/02/19 18:00 Alkaline Phosphatase 55 U/L (45-117) 02/02/19 18:00 Total Creatine Kinase 77 U/L (26-192) 02/02/19 18:00 CK-MB (CK-2) 1.5 ng/ml (0.5-3.6) 02/02/19 18:00 CK/CKMB % Calc 1.9 (0-3.0) 02/02/19 18:00 Troponin I < 0.015 ng/ml (0-0.045) 02/02/19 18:00 Total Protein 7.2 gm/dl (6.4-8.2) 02/02/19 18:00 Albumin 3.7 gm/dl (3.4-5.0) 02/02/19 18:00 Globulin 3.5 gm/dl (2.5-4.0) 02/02/19 18:00 Albumin/Globulin Ratio 1.1 (0.9-2) 02/02/19 18:00 Lipase 171 U/L (73-393) 02/02/19 18:00 Diagnostic Findings [facility], [place] [phone] Ultrasound Report Patient: BA NEFF Date: 02/02/19 MR#: [id number]: [id number] TELEGRAPH DOMINIQUE Acct ID:[id number]: Date: 1950[facility] Zip: [place] [address] Age: 68Location: ED Sex: F Room/Bed: Att Phy:Diagnosis: ABD PAIN, SOB, VOMITING Gisela Phy: Isadora Pacheco MDService Date: 02/02/19 Fam Phy: Isadora Pacheco MDInterpreting Phy: Mario Alberto Jimenez MD Admit Phy: Ordering Phy: Juanpablo Guerrier MD cc: ~ BILIARY ULTRASOUND CLINICAL HISTORY: Right upper quadrant abdominal pain COMPARISON STUDY: December 07, 2017 FINDINGS: The pancreas appears sonographically normal. No hepatic masses are visualized. There is slight increase in hepatic echogenicity. There is focal fatty sparing adjacent to gallbladder fossa. Multiple gallstones are visualized. There is trace pericholecystic fluid. There is borderline gallbladder wall thickening. There is no ductal dilatation. The common bile duct measures 4 mm. There is no right-sided hydronephrosis. There is an extrarenal pelvis. IMPRESSION: 1. Mild gallbladder distention. Cholelithiasis. Borderline gallbladder wall thickening and trace pericholecystic fluid. Clinical correlation in regards to acute cholecystitis is recommended. If clinically indicated, a nuclear medicine hepatic biliary study could be performed to assess cystic duct patency Electronically signed by: Mario Alberto Jimenez M.D. 02/02/2019 7:36 PM Dictated: 02/02/191932 Transcribed: 02/02/191932 [facility], [place] [phone] XRay Report Patient: BA NEFF Date: 02/02/19 MR#: [id number]: [id number] TELEGRAPH DOMINIQUE Acct ID:[id number]: Date: 1950[facility] Zip: [place] [address] Age: 68Location: ED Sex: F Room/Bed: Att Phy:Diagnosis: ABD PAIN, SOB, VOMITING Gisela Phy: Isadora Pacheco MDService Date: 02/02/19 Fam Phy:Interpreting Phy: Mario Alberto Jimenez MD Admit Phy: Ordering Phy: Juanpablo Guerrier MD cc: ~ XR chest 1V portable CLINICAL HISTORY: Atypical chest pain COMPARISON STUDY: 08/02/2018 FINDINGS: The cardiac and mediastinal contours are normal. There is no evidence of focal pulmonary consolidation. There is no evidence of failure. No pleural effusions are visualized.[The patient appears mildly hyperexpanded IMPRESSION: No active disease in the chest. Electronically signed by: Mario Alberto Jimenez M.D. 02/02/2019 6:13 PM Dictated: 02/02/191812 Transcribed: 02/02/191812 [place], [place] [phone] CT Scan Report Patient: BA NEFF Date: 02/02/19 MR#: [id number]: [id number] TELEGRAPH DOMINIQUE Acct ID:[id number]: Date: 1950[facility] Zip: [place] [address] Age: 68Location: ED Sex: F Room/Bed: Att Phy:Diagnosis: ABD PAIN, SOB, VOMITING Gisela Phy: Isadora Pacheco MDService Date: 02/02/19 [facility] Phy: Isadora Pacheco MDInterpreting Phy: Mario Alberto Jimenez MD Admit Phy: Ordering Phy: Juanpablo Guerrier MD cc: ~ CT abd pelvis IV con only CLINICAL HISTORY: Epigastric pain COMPARISON STUDY: 03/09/2015, ultrasound dated 02/02/2019 TECHNIQUE: The patient was scanned in a dynamic helical fashion during intravenous administration of 94 cc of Optiray 320. A dose lowering technique was utilized adhering to the principles of ALARA. CT DOSE: 506.68 mGy.cm FINDINGS: Lower chest: There are mild dependent atelectatic changes. Liver: The contrast-enhanced liver is normal in size, contour, and attenuation. There is no intrahepatic biliary ductal dilatation. The hepatic veins and portal veins are patent. Gallbladder: Gallstones visualized on the ultrasound study are nonvisible on CT scanning. There is no significant pericholecystic infiltration. Spleen: Normal in size and attenuation. Pancreas: Unremarkable. Adrenal glands: Unremarkable. Kidneys: There is symmetric renal cortical enhancement. The kidneys are normal in size without hydronephrosis. Bowel: There are no transition zones to indicate bowel obstruction. The appendix appears normal. There is no acute diverticulitis. There is mild fecal retention. Peritoneum: There is no intraperitoneal free air or abdominal ascites. Vasculature: The abdominal aorta is normal in course and caliber. Adenopathy: None. Pelvic viscera: The bladder, and pelvic viscera are unremarkable. Skeletal structures: Moderately advanced arthritic changes are present within the hips. IMPRESSION: 1. No evidence of bowel obstruction. No evidence of free air 2. Normal appendix. No evidence of acute diverticulitis 3. Multiple gallstones described in the prior ultrasound study cannot be visualized on CT scanning. There is no significant infiltration of the pericholecystic fat. Electronically signed by: Mario Alberto Jimenez M.D. 02/02/2019 8:12 PM Dictated: 02/02/192006 Transcribed: 02/02/192006 Code Status & VTE Plan VTE Prophylaxis Plan VTE Prophylaxis will be ordered: Yes PG Care Time/CCT Total # of Minutes Spent Total Time Spent: 55 Total Time Spent with Patient: Total time spent is greater than 50% in coordination of care (as documented) at patient's floor/unit and/or counseling patient:
[2019-02-03] MEDS: LACTATED RINGER'S 1,000 ML IV SCH ×4 (00:20→17:07)
[2019-02-03] MEDS: BuPROPion SR 100 MG TABCR PO SCH ×3 (00:26→20:41)
[2019-02-03] MEDS: GABAPENTIN 300 MG CAP PO SCH ×4 (00:27→20:41)
[2019-02-03] MEDS: ONDANSETRON INJ 2 MG/ML 2 ML VIAL IV PRN ×2 (00:31→17:25)
[2019-02-03] MEDS: KETOROLAC TROMETHAMINE 15 MG/ML VIAL IV PRN ×2 (00:39→08:07)
[2019-02-03] MEDS: cefOXitin 2,000 MG in DEXTROSE 5% 50 ML IV SCH ×3 (05:08→19:28)
[2019-02-03 05:29] LABS: Hematocrit (blood only) 35.2 % (37-47); Hemoglobin 11.4 g/dL (12.0-16.0); Mean Corpuscular Hemoglobin 30.5 pg (25-34); Mean Corpuscular Hgb Conc 32.4 g/dL (32-36); Mean Corpuscular Volume 94.1 fL (80-100); Mean Platelet Volume 9.9 fL (7.4-10.4); Platelet Count 131 K/uL (130-400); RDW Coefficient of Variation 13.2 % (11.5-14.5); RDW Standard Deviation 45.6 fL (36.4-46.3); Red Blood Count 3.74 M/uL (4.2-5.4); White Blood Count 5.59 K/uL (4.8-10.8)
[2019-02-03 05:55] LABS: Bilirubin Direct 0.2 mg/dl (0-0.2); Calcium 8.4 mg/dl (8.5-10.1); Creatinine Clr Calc Pharmacy 53.9 ml/min; Est GFR (African American) 60.9; Est GFR (Non-African American) 52.6; Potassium 3.9 mmol/L (3.5-5.1)
[2019-02-03 06:20] LABS: Bilirubin,Total 0.6 mg/dl (0.2-1); Globulin 2.9 gm/dl (2.5-4.0); Total Protein 5.9 gm/dl (6.4-8.2)
[2019-02-03] MEDS: PANTOprazole 40 MG TAB PO SCH (08:13)
[2019-02-03] MEDS: ESCITALOPRAM OXALATE 20 MG TAB PO SCH (08:13)
[2019-02-03] MEDS: TAMOXIFEN CITRATE 10 MG TABLET PO SCH (08:33)
--- NOTE | 2019-02-03 08:56 | Surgery Consultation ---
Date of Consultation February 03, 2019 Assessment & Plan (1) Acute cholecystitis: Plan for laparoscopic cholecystectomy today. as above. discussed options/risks ( bleeding/infectiondvt/pe/mi/cva/injury to an organ/bile leaks etc...) questions answered. will proceed with lap bunny today. History of Present Illness Attending Physician: Ethan Espinoza MD History of Present Illness 68 y/o female with epigastric pain, N/V yesterday afternoon while preparing for [employer]. Then had midscapular pain although is improved this morning. Has had epigastric discomfort in the past, nothing this severe. No fatty food intolerance, follows weight watchers diet. No previous abdominal surgery. Allergies Allergy/AdvReac Type Severity Reaction Status Date / Time Penicillins Allergy Intermediate HIVES Verified 02/02/19 18:34 clonazepam Allergy Unknown Depression; Verified 02/02/19 18:34 tetracycline AdvReac Intermediate rash Verified 02/02/19 18:34 zolpidem AdvReac Intermediate sleep Verified 02/02/19 18:34 eating episodes adhesive AdvReac Mild skin Verified 02/02/19 18:34 tears, skin blisters erythromycin base AdvReac Mild GI SYMPTOMS Verified 02/02/19 18:34 Home Medications Home Medications Medication Instructions Recorded Confirmed Type Stool Softener 50 mg PO HS 07/29/18 02/02/19 History bupropion HCl [Wellbutrin SR] 200 mg PO BID 07/29/18 02/02/19 History calcium-vitamin D3-vitamin K 1 tab PO QAM 07/29/18 02/02/19 History [Viactiv] cholecalciferol (vitamin D3) 2,000 unit PO BID 07/29/18 02/02/19 History [Vitamin D3] doxylamine succinate 12.5 mg PO HS PRN 07/29/18 02/02/19 History ibuprofen 200 mg PO QAM 07/29/18 02/02/19 History melatonin 10 mg PO HS PRN 07/29/18 02/02/19 History multivitamin 1 cap PO QAM 07/29/18 02/02/19 History omega 3-rwv-hkf-fish oil [Fish Oil] 1 cap PO QAM 07/29/18 02/02/19 History tamoxifen 20 mg PO QAM 07/29/18 02/02/19 History methylcellulose (laxative) 500 mg 500 mg PO HS 12/16/18 02/02/19 History tablet omeprazole 20 mg tablet,delayed 20 mg PO QAM #30 tab 01/01/19 02/02/19 Rx release hydrocodone 5 mg-acetaminophen 325 0.5 tab PO HS #30 tab 01/12/19 02/02/19 Rx mg tablet gabapentin 300 mg capsule 300 mg PO TID cap 01/27/19 02/02/19 History dicyclomine 10 mg PO DAILY PRN 02/02/19 02/02/19 History escitalopram oxalate 20 mg PO QAM 02/02/19 02/02/19 History Patient History Medical History Anxiety Chronic leukopenia Ever since chemotherapy Depression GERD (gastroesophageal reflux disease) History of breast cancer 5 YEARS AGO. LUMPECTOMY, CHEMO AND RADIATION. History of neuropathy S/T CHEMO TREATMENT. Multiple sclerosis REMISSION. FOLLOWS WITH DR. PARADA, [facility] [place] [facility]. 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 Beliefs That Will Affect Care: None marital status: Current Living Situation: Spouse Other Information That Helps Us Care for You: No Feels Safe at Home: Yes Safety Concerns: Feels Safe At This Time Smoking Status: Never smoker Do You Dip or Chew Tobacco: No ; Second Hand Exposure: No ; Hx Alcohol Use: Yes Alcohol type: wine Hx Substance Use: No Review of Systems Constitutional: no fever and no chills Respiratory: no cough and no dyspnea Cardiovascular: no chest pain and no chest pain with activity Gastrointestinal: + abdominal pain, + nausea and + vomiting Physical Exam Constitutional: WD/WN, vitals as above Respiratory: normal respiratory effort, lungs clear to auscultation Cardiovascular: RRR, no murmur, no edema Gastrointestinal (Abdomen): Inspection/Auscultation: abdomen not distended Percussion/Palpation: + abdomen tender (mild RUQ) and abdomen soft Results & Data Vital Signs (Past 12 Hours) Vital Signs Temp Pulse Pulse Pulse Resp BP BP 02/03/19 07:13 36.6 C 60 16 134/70 02/03/19 00:00 36.8 C 59 L 16 147/70 H 02/02/19 22:44 36.9 C 61 18 154/69 H 02/02/19 22:06 61 16 136/88 02/02/19 21:30 70 21 164/81 H 02/02/19 21:00 67 16 150/79 H Pulse Ox 02/03/19 07:13 94 02/03/19 00:00 97 02/02/19 22:44 93 02/02/19 22:06 95 02/02/19 21:30 97 02/02/19 21:00 92 PG Care Time/CCT Total # of Minutes Spent Total Time Spent with Patient: Total time spent is greater than 50% in coordination of care (as documented) at patient's floor/unit and/or counseling patient:
[2019-02-03] MEDS ORDERED: ROCURONIUM BROMIDE 10 MG/ML 5 ML VIAL ONE (11:21)
[2019-02-03] MEDS ORDERED: PROPOFOL IV EMULSION 10 MG/ML 20 ML VIAL IV ONE (11:21)
[2019-02-03] MEDS ORDERED: LIDOCAINE HCL 2% 2 ML VIAL/AMP(20MG/ML) INFIL ONE (11:21)
[2019-02-03] MEDS ORDERED: fentaNYL citrate 100 MCG/2 ML VIAL ONE (11:21)
[2019-02-03] MEDS ORDERED: DEXAMETHASONE SOD INJ 4 MG/ML VIAL ONE (11:21)
[2019-02-03] MEDS ORDERED: ONDANSETRON INJ 2 MG/ML 2 ML VIAL ONE (11:21)
--- NOTE | 2019-02-03 11:25 | Anesthesiology Consultation ---
Date of Service February 03, 2019 Assessment & Plan (1) Encounter for pre-operative examination: Chart Review Chart Review: Acceptable Risk for Surgery and Patient NOT seen in Pre Admission Testing Consults Requested none History Surgery Operation Date: 02/03/19 08:00 Proposed Procedures p Laparoscopic Cholecystectomy - Alexx Farris, Height/Weight Height: 5 ft 7.5 in Weight: 80.2 kg Allergies Allergy/AdvReac Type Severity Reaction Status Date / Time Penicillins Allergy Intermediate HIVES Verified 02/02/19 18:34 clonazepam Allergy Unknown Depression; Verified 02/02/19 18:34 tetracycline AdvReac Intermediate rash Verified 02/02/19 18:34 zolpidem AdvReac Intermediate sleep Verified 02/02/19 18:34 eating episodes adhesive AdvReac Mild skin Verified 02/02/19 18:34 tears, skin blisters erythromycin base AdvReac Mild GI SYMPTOMS Verified 02/02/19 18:34 Medications Home Medications Medication Instructions Recorded Confirmed Last Taken Stool Softener 50 mg PO HS 07/29/18 02/02/19 02/01/19 bupropion HCl [Wellbutrin SR] 200 mg PO BID 07/29/18 02/02/19 02/02/19 calcium-vitamin D3-vitamin K 1 tab PO QAM 07/29/18 02/02/19 02/02/19 [Viactiv] cholecalciferol (vitamin D3) 2,000 unit PO BID 07/29/18 02/02/19 02/02/19 [Vitamin D3] doxylamine succinate 12.5 mg PO HS PRN 07/29/18 02/02/19 02/01/19 ibuprofen 200 mg PO QAM 07/29/18 02/02/19 02/02/19 melatonin 10 mg PO HS PRN 07/29/18 02/02/19 02/01/19 multivitamin 1 cap PO QAM 07/29/18 02/02/19 02/02/19 omega 6-yig-smc-fish oil [Fish Oil] 1 cap PO QAM 07/29/18 02/02/19 02/02/19 tamoxifen 20 mg PO QAM 07/29/18 02/02/19 02/02/19 methylcellulose (laxative) 500 mg 500 mg PO HS 12/16/18 02/02/19 02/01/19 tablet omeprazole 20 mg tablet,delayed 20 mg PO QAM #30 tab 01/01/19 02/02/19 02/02/19 release hydrocodone 5 mg-acetaminophen 325 0.5 tab PO HS #30 tab 01/12/19 02/02/19 02/01/19 mg tablet gabapentin 300 mg capsule 300 mg PO TID cap 01/27/19 02/02/19 02/02/19 dicyclomine 10 mg PO DAILY PRN 02/02/19 02/02/19 02/01/19 escitalopram oxalate 20 mg PO QAM 02/02/19 02/02/19 02/02/19 Active Medications Generic Name Dose Route Start Last Admin Trade Name Freq PRN Reason Stop Dose Admin Bupropion HCl 200 mg 02/02/19 22:43 02/03/19 08:32 Wellbutrin-Sr PO 03/04/19 22:42 200 mg BID YUDITH Administration Escitalopram Oxalate 20 mg 02/03/19 09:00 02/03/19 08:13 Lexapro Tab PO 03/05/19 08:59 20 mg QAM YUDITH Administration Gabapentin 300 mg 02/02/19 22:43 02/03/19 08:32 Neurontin PO 03/04/19 22:42 300 mg TID YUDITH Administration Lactated Ringer's 1,000 mls @ 125 mls/hr 02/02/19 22:43 02/03/19 09:06 Lr IV 03/04/19 22:42 125 mls/hr .Q8H YUDITH Administration Cefoxitin Sodium 2,000 mg/ 60 mls @ 100 mls/hr 02/03/19 04:00 02/03/19 05:44 Dextrose IV 02/13/19 03:59 Infused Q8H YUDITH Infusion Ioversol 94 ml 02/02/19 19:47 02/02/19 19:47 Optiray 320 100ml IV 02/06/19 19:46 94 ml ONCE PRN Administration Interaction Checking Ketorolac Tromethamine 15 mg 02/02/19 22:43 02/03/19 08:07 Toradol IV 02/07/19 22:42 15 mg Q6H PRN Administration Mild pain/fever Ondansetron HCl 4 mg 02/02/19 22:43 02/03/19 00:31 Zofran IV 03/04/19 22:42 4 mg Q6H PRN Administration nausea or vomiting Pantoprazole Sodium 40 mg 02/03/19 09:00 02/03/19 08:13 Protonix PO 03/05/19 08:59 40 mg QAM YUDITH Administration Tamoxifen Citrate 20 mg 02/03/19 09:00 02/03/19 08:33 Nolvadex PO 03/05/19 08:59 20 mg QAM YUDITH Administration NPO Date Last Intake of Fluids: 02/03/19 Time Last Intake of Fluids: 00:00 Last Intake of Fluids Comment: pt allowed water sips and ice chips. Date Last Intake of Solids: 02/02/19 Time Last Intake of Solids: 23:00 Last Intake of Solids Comment: prior to shift; patient states around 1300 Past Medical History Medical History Anxiety Chronic leukopenia Ever since chemotherapy Depression GERD (gastroesophageal reflux disease) History of breast cancer 5 YEARS AGO. LUMPECTOMY, CHEMO AND RADIATION. History of neuropathy S/T CHEMO TREATMENT. Multiple sclerosis REMISSION. FOLLOWS WITH DR. PARADA, [facility] [place] [facility]. Osteoarthritis Vertigo Exacerbated by sitting up too fast and turning to left side while laying down Exercise / Class Metabolic Activity II 4-5 Yardwork/Stairs/Walk up hill Past Surgical History Surgical History History of adenoidectomy History of breast lump removal History of cataract extraction with lens replacement History of colonoscopy History of dental surgery History of dilatation and curettage History of esophagogastroduodenoscopy (EGD) History of tonsillectomy Past Anesthesia History No Hx of Anesthesia Complications and No Family Hx of Anesthesia Complications History of PONV No Hx of PONV and No Hx of Motion Sickness Social History Smoking Status: Never smoker Do You Dip or Chew Tobacco: No Hx Alcohol Use: Yes Alcohol type: wine alcohol intake frequency: a few times a week Hx Substance Use: No substance use type: does not use Physical Exam Vital Signs Last Vital Signs Temp 36.6 C 02/03/19 07:13 Pulse 60 02/03/19 07:13 Resp 16 02/03/19 07:13 BP 134/70 02/03/19 07:13 Pulse Ox 94 02/03/19 07:13 Testing Laboratory Results 02/03/19 05:09 02/03/19 05:09 Electrocardiogram Date: 02/02/19 Findings: + NSR @ (61) Normal sinus rhythm Normal ECG When compared with ECG of 02-AUG-2018 09:37, No significant change was found Chest X-Ray Date: 02/02/19 XR chest 1V portable CLINICAL HISTORY: Atypical chest pain COMPARISON STUDY: 08/02/2018 FINDINGS: The cardiac and mediastinal contours are normal. There is no evidence of focal pulmonary consolidation. There is no evidence of failure. No pleural effusions are visualized.[The patient appears mildly hyperexpanded IMPRESSION: No active disease in the chest.
[2019-02-03] MEDS ORDERED: ONDANSETRON INJ 2 MG/ML 2 ML VIAL IV PRN (11:27)
[2019-02-03] MEDS ORDERED: ePHEDrine sulfate 50 MG/ML AMP IV PRN (11:27)
[2019-02-03] MEDS ORDERED: ATROPINE SULFATE 0.1 MG/ML 10ML SYR IV PRN (11:27)
[2019-02-03] MEDS ORDERED: HYDROmorphone INJ 1 MG/ML SYRINGE IV PRN (11:27)
[2019-02-03] MEDS ORDERED: BUPIVACAINE/EPINEPHRINE 0.5% MPF 1:200,000 30 ML VIAL ONE (12:15)
--- NOTE | 2019-02-03 13:48 | Operative Report ---
PG Post Operative Report Pre & Post Diagnosis Operation Date: 02/03/19 08:00 Pre-Op Diagnosis: CHOLECYSTITIS, SYMPTOMATIC CHOLELITHIASIS Post-Op Diagnosis: CHOLECYSTITIS, SYMPTOMATIC CHOLELITHIASIS I identified the patient and participated in the time-out.: Yes Procedure Operation Date: 02/03/19 08:00 Actual Procedures p Laparoscopic Cholecystectomy(Not Applicable) - Alexx Farris DO Surgeon Alexx Farris DO [employer] georgina Wren Estimated Blood Loss 5 Findings Consistent with Post-Op Diagnosis Specimens gallbladder Description of Procedure After informed consent was obtained the patient was taken to the operating room and placed in the supine position. After successful intubation the abdomen was sterilely prepped and draped in usual fashion. A periumbilical incision was made with an 11 blade scalpel and carried down through the soft tissue using electrocautery. The anterior rectus fascia was opened using electrocautery and 2 #0 Vicryl stay sutures were placed. The peritoneum was elevated with hemostats and incised under direct vision using Metzenbaum scissors. A finger sweep was performed and a 12 mm [place] trocar was placed. The abdomen was insufflated to 18 mmHg. The laparoscope was inserted and the abdomen was examined in 360. No gross abnormalities were identified. A subxiphoid 5 mm port and 2 right upper quadrant 5 mm ports were placed under direct vision. The patient was placed in a reverse Trendelenburg position and slightly airplaned to the left. The gallbladder was acutely inflamed. I had to drain it with a gallbladder needle so that we could grasp it. I drained about 20 cc of bile. After decompressing the gallbladder we were able to grasp it and elevate it avery periorly and laterally. A [place] dissector was used to take down adhesions around the neck of the gallbladder. The cystic duct was identified and skeletonized. It was clipped twice proximally and once distally and transected using a laparoscopic scissor. In similar fashion the cystic artery was identified and skeletonized clipped and divided. The gallbladder was removed from the gallbladder fossa with electrocautery. It was placed into an Endo Catch bag. Thorough irrigation was performed. At the end of the procedure there was adequate hemostasis and no evidence of any bile leaks. A final look around the abdomen showed no other abnormalities. The gallbladder and trochars were all removed and the abdomen was desufflated. The fascia of the camera port was closed using 0 Vicryl in a [id number] fashion. All the wounds were irrigated and closed using 4-0 Monocryl. Marcaine was injected around them for postoperative analgesia and skin glue used as a dressing. The patient was awaken extubated and transferred to recovery in stable condition. My physician's digital assistant was present throughout the entire case... helped with prepping the patient. With exposure for trocar placement, as well as retracted the gallbladder throughout the case and also assisted with wound closure and dressing placement. I attest to the content of the Intraoperative Record and any orders documented therein. Any exceptions are noted below.
[2019-02-03] MEDS ORDERED: NEOSTIGMINE METHYLSULFATE 5 MG/5 ML SYR ONE (13:54)
[2019-02-03] MEDS ORDERED: GLYCOPYRROLATE 0.2 MG/ML VIAL ONE (13:54)
[2019-02-03] MEDS ORDERED: LABETALOL HCL IV 5 MG/ML 20ML IV ONE (13:54)
[2019-02-03] MEDS: fentaNYL citrate 100 MCG/2 ML VIAL IV PRN ×4 (14:06→14:21)
--- NOTE | 2019-02-03 14:14 | Anesthesiology Progress Note ---
Date of Service February 03, 2019 Anesthesia Post Procedure Vital Signs Vital Signs: Temp Pulse Pulse Pulse Resp BP BP 02/03/19 11:37 36.9 C 60 16 128/63 02/03/19 07:13 36.6 C 60 16 134/70 02/03/19 00:00 36.8 C 59 L 16 147/70 H 02/02/19 22:44 36.9 C 61 18 154/69 H 02/02/19 22:06 61 16 136/88 02/02/19 21:30 70 21 164/81 H 02/02/19 21:00 67 16 150/79 H 02/02/19 20:41 55 L 24 162/73 H 02/02/19 18:29 67 16 159/84 H 02/02/19 18:00 02/02/19 17:32 60 14 171/67 H 02/02/19 17:17 36.9 C 68 20 147/81 H Pulse Ox 02/03/19 11:37 94 02/03/19 07:13 94 02/03/19 00:00 97 02/02/19 22:44 93 02/02/19 22:06 95 02/02/19 21:30 97 02/02/19 21:00 92 02/02/19 20:41 96 02/02/19 18:29 98 02/02/19 18:00 99 02/02/19 17:32 99 02/02/19 17:17 98 Pain Intensity Abdomen: Pain Intensity: 5 Transfer of Care Handoff Completed per policy Notes Mental Status: alert / awake / arousable and participated in evaluation Patient Amnestic to Procedure: Yes Nausea / Vomiting: adequately controlled Pain: adequately controlled Airway Patency, RR, SpO2: stable & adequate BP & HR: stable & adequate Hydration State: stable & adequate Anesthetic Complications: no major complications apparent and Pt Satisfied with anesthetic care
[2019-02-03] MEDS ORDERED: HYDROCODONE/ACETAMOPHEN 5/325MG TAB PO PRN (14:54)
[2019-02-03] MEDS ORDERED: MoRPHine SULFATE 4 MG/ML 1 ML CARP\\VIAL IV PRN (14:54)
[2019-02-03] MEDS ORDERED: COUGH DROP (SUGAR FREE) LOZ 24 LOZ/1 BOX BUCCAL PRN (17:02)
--- NOTE | 2019-02-03 21:20 | Hospitalist Progress Note ---
Date of Service February 03, 2019 Assessment & Plan (1) Acute cholecystitis: Plan for surgery on 02/03. - NPO - IV fluids - Pain control - IV abx (2) Cholelithiasis: Symptomatic. - As above (3) Multiple sclerosis: Follows with neurology. Has been stable. She was taken off suppressive therapy when developed breast CA. - Outpatient follow up (4) Breast cancer: In remission. - Continue tamoxifen (5) Leukopenia: Chronic and at baseline. Patient reports this is due to her use of tamoxifen. - Monitor (6) DVT prophylaxis: Early ambulation Subjective Doing well today. No return of pain, though she is NPO, so no consumption. Plan for surgery today. Review of Systems Review of Systems: All systems reviewed & are unremarkable except as noted in HPI & below Physical Exam Constitutional: WD/WN, vitals as above Eyes: EOM intact bilaterally; no conjunctival abnormality ENMT: external ear and nose normal, oropharynx normal Neck: trachea midline, no thyromegaly normal visual inspection Respiratory: normal respiratory effort, lungs clear to auscultation no respiratory distress Cardiovascular: RRR, no murmur, no edema Gastrointestinal (Abdomen): Inspection/Auscultation: abdomen normal to inspection; abdomen not distended Musculoskeletal: no cyanosis or clubbing, extremities motor strength 5/5 Skin: no rashes, warm and dry Neurologic: moves all extremities and awake Psychiatric: Orientation: alert, oriented to person and cooperative Results & Data Vital Signs (Past 12 Hours) Vital Signs Temp Pulse Pulse Resp BP Pulse Ox 02/03/19 17:50 36.9 C 71 17 143/66 H 95 02/03/19 16:57 70 17 151/71 H 96 02/03/19 15:53 37.0 C 67 17 149/69 H 95 02/03/19 15:16 36.9 C 66 18 129/70 96 02/03/19 15:06 36.7 C 65 16 140/71 93 02/03/19 14:35 36.4 C L 67 16 143/72 H 96 02/03/19 14:25 63 16 146/71 H 96 02/03/19 14:15 63 16 156/74 H 96 02/03/19 14:05 66 16 162/75 H 96 02/03/19 13:59 36.7 C 72 16 160/79 H 96 02/03/19 11:37 36.9 C 60 16 128/63 94 PG Care Time/CCT Total # of Minutes Spent Total Time Spent with Patient: Total time spent is greater than 50% in coordi nation of care (as documented) at patient's floor/unit and/or counseling patient:
[2019-02-03] MEDS: HYDROCODONE/ACETAMOPHEN 5/325MG TAB PO PRN (23:55)
--- NOTE | 2019-02-04 00:53 | Emergency Department Note ---
Entered by Belkys Medrano acting as a scribe for History of Present Illness General Chief complaint: Abdominal Pain Stated complaint: ABD PAIN, SOB, VOMITING Time Seen by Provider: 02/02/19 17:28 Source: patient Mode of arrival: ambulatory Limitations: no limitations History of Present Illness Onset (ago): day(s) 1 Location: abdomen Radiation: non-radiation Pain Consistency: + constant Maximum Pain Intensity: 7 Current Pain Intensity: 7 Relieved By: + none Exacerbated By: + eating Associated symptoms: + nausea/vomiting and + shortness of breath Treatments prior to arrival: none The patient is a 68 year old female who presents to the ED with complaints of ab dominal pain. She states she was driving to her friends house for a constitution party when she started experiencing abdominal pain. She started vomiting once she got to her friends house and states she thinks eating chocolate cake earlier today caused her vomiting. She also admits to feeling minimally short of breath. Home Medications Home Medications Medication Instructions Recorded Confirmed Type Stool Softener 50 mg PO HS 07/29/18 02/02/19 History bupropion HCl [Wellbutrin SR] 200 mg PO BID 07/29/18 02/02/19 History calcium-vitamin D3-vitamin K 1 tab PO QAM 07/29/18 02/02/19 History [Viactiv] cholecalciferol (vitamin D3) 2,000 unit PO BID 07/29/18 02/02/19 History [Vitamin D3] doxylamine succinate 12.5 mg PO HS PRN 07/29/18 02/02/19 History ibuprofen 200 mg PO QAM 07/29/18 02/02/19 History melatonin 10 mg PO HS PRN 07/29/18 02/02/19 History multivitamin 1 cap PO QAM 07/29/18 02/02/19 History omega 2-mxu-slw-fish oil [Fish Oil] 1 cap PO QAM 07/29/18 02/02/19 History tamoxifen 20 mg PO QAM 07/29/18 02/02/19 History methylcellulose (laxative) 500 mg 500 mg PO HS 12/16/18 02/02/19 History tablet omeprazole 20 mg tablet,delayed 20 mg PO QAM #30 tab 01/01/19 02/02/19 Rx release hydrocodone 5 mg-acetaminophen 325 0.5 tab PO HS #30 tab 01/12/19 02/02/19 Rx mg tablet gabapentin 300 mg capsule 300 mg PO TID cap 01/27/19 02/02/19 History dicyclomine 10 mg PO DAILY PRN 02/02/19 02/02/19 History escitalopram oxalate 20 mg PO QAM 02/02/19 02/02/19 History Allergies Allergy/AdvReac Type Severity Reaction Status Date / Time Penicillins Allergy Intermediate HIVES Verified 02/02/19 18:34 clonazepam Allergy Unknown Depression; Verified 02/02/19 18:34 tetracycline AdvReac Intermediate rash Verified 02/02/19 18:34 zolpidem AdvReac Intermediate sleep Verified 02/02/19 18:34 eating episodes adhesive AdvReac Mild skin Verified 02/02/19 18:34 tears, skin blisters erythromycin base AdvReac Mild GI SYMPTOMS Verified 02/02/19 18:34 Past Med/Surg History Medical History Anxiety Chronic leukopenia Ever since chemotherapy Depression GERD (gastroesophageal reflux disease) History of breast cancer 5 YEARS AGO. LUMPECTOMY, CHEMO AND RADIATION. History of neuropathy S/T CHEMO TREATMENT. Multiple sclerosis REMISSION. FOLLOWS WITH DR. PARADA, [facility]. Osteoarthritis Vertigo Exacerbated by sitting up too fast and turning to left side while laying down Surgical History Hx laparoscopic cholecystectomy (02/03/19) Laparoscopic Cholecystectomy Dr. Farris 02/03/19 History of adenoidectomy History of breast lump removal History of cataract extraction with lens replacement History of colonoscopy History of dental surgery History of dilatation and curettage History of esophagogastroduodenoscopy (EGD) History of tonsillectomy Social History Preferred Language: Bulgarian Communication Ability: Effective Visual Impairment: No Limitations Hearing Ability: Normal Day Care Aide Required: No Beliefs That Will Affect Care: None marital status: Current Living Situation: Spouse Other Information That Helps Us Care for You: No Feels Safe at Home: Yes Safety Concerns: Feels Safe At This Time Smoking Status: Never smoker Do You Dip or Chew Tobacco: No ; Second Hand Exposure: No ; Hx Alcohol Use: Yes Alcohol type: wine Hx Substance Use: No Review of Systems See HPI for pertinent positives & negatives. and A total of 10 systems reviewed and were otherwise negative Physical Exam Vital Signs Vital Signs - 24 hr 02/02/19 17:17 02/02/19 17:32 02/02/19 18:00 Temperature 98.4 F Temperature Source Oral Sepsis Recent Fever Within 48 Hours No Sepsis Action Taken by Nursing No Action Required Pulse Rate 68 60 Respiratory Rate 20 14 Respiratory Effort / Characteristics Non-Labored Respiratory Depth Normal Blood Pressure 147/81 H 171/67 H Blood Pressure Mean 103 101 Pulse Oximetry 98 99 99 Oxygen Delivery Method Room Air Room Air Room Air 02/02/19 18:29 Temperature Temperature Source Sepsis Recent Fever Within 48 Hours Sepsis Action Taken by Nursing Pulse Rate 67 Respiratory Rate 16 Respiratory Effort / Characteristics Respiratory Depth Blood Pressure 159/84 H Blood Pressure Mean 109 Pulse Oximetry 98 Oxygen Delivery Method Room Air GENERAL: Awake, alert, well-appearing, in no acute distress HENT: Normocephalic, atraumatic. Oropharynx unremarkable. EYES: Normal conjunctiva. Sclera non-icteric. NECK: Supple. No nuchal rigidity. FROM. No JVD. RESPIRATORY: Clear to auscultation. CARDIAC: Regular rate, normal rhythm. Extremities warm and well perfused. Pulses equal. ABDOMEN: Soft, non-distended. Tender in the epigastric area. No rebound or guarding. No masses. RECTAL: Deferred. MUSCULOSKELETAL: Chest examination reveals no tenderness. The back is symmetrical on inspection without obvious abnormality. There is no CVA tenderness to palpation. No joint edema. LOWER EXTREMITIES: Calves are equal size bilaterally and non-tender. No edema. No discoloration. NEURO: Normal sensorium. No sensory or motor deficits noted. SKIN: No rash or jaundice noted. Course 1739: The patient was evaluated in room B11 and a complete history and physical were performed. 2204: I reevaluated the patient. She is resting comfortably. I discussed her results and my recommendation she remain in the hospital for further evaluation and management and she is agreeable with the plan. 2208: I discussed the patients case with Dr. Farris, [facility]. The patient will be further evaluated. 2021: I discussed the patients case with Dr. Hugo, [facility]. The patient will be further evaluated. Consultations Consultation #1: I discussed the patients case with Dr. Farris, [facility]. The patient will be further evaluated. Time: 22:09 Consultation #2: [facility] be further evaluated. Time: 20:22 Administered Medications Hydrocodone Bitart/Acetaminophen ([place] 5/325) 1 tab PO Q4H PRN PRN Reason: Pain Stop: 02/17/19 14:53 Last Admin: 02/03/19 23:55 Dose: 1 tab Documented by: [id number] Bupropion HCl (Wellbutrin-Sr) 200 mg PO BID YUDITH Stop: 03/04/19 22:42 Last Admin: 02/03/19 20:41 Dose: 200 mg Documented by: [id number] Admin: 02/03/19 08:32 Dose: 200 mg Documented by: [id number] Admin: 02/03/19 00:26 Dose: 200 mg Documented by: [id number] Escitalopram Oxalate (Lexapro Tab) 20 mg PO QAM YUDITH Stop: 03/05/19 08:59 Last Admin: 02/03/19 08:13 Dose: 20 mg Documented by: [id number] Gabapentin (Neurontin) 300 mg PO TID YUDITH Stop: 03/04/19 22:42 Last Admin: 02/03/19 20:41 Dose: 300 mg Documented by: [id number] Admin: 02/03/19 17:07 Dose: 300 mg Documented by: [id number] Admin: 02/03/19 08:32 Dose: 300 mg Documented by: [id number] Admin: 02/03/19 00:27 Dose: 300 mg Documented by: [id number] Cefoxitin Sodium 2,000 mg/ (Dextrose) 60 mls @ 100 mls/hr IV Q8H YUDITH Stop: 02/13/19 03:59 Last Infusion: 02/03/19 20:10 Dose: 0 mls/hr Documented by: [id number] Admin: 02/03/19 19:28 Dose: 100 mls/hr Documented by: [id number] Infusion: 02/03/19 13:24 Dose: 0 mls/hr Documented by: [id number] Admin: 02/03/19 12:48 Dose: 100 mls/hr Documented by: [id number] Infusion: 02/03/19 05:44 Dose: 0 mls/hr Documented by: [id number] Admin: 02/03/19 05:08 Dose: 100 mls/hr Documented by: [id number] Lactated Ringer's (Lr) 1,000 mls @ 80 mls/hr IV .[id number] [facility] Stop: 03/05/19 14:53 Last Infusion: 02/03/19 21:57 Dose: 80 mls/hr Documented by: [id number] Admin: 02/03/19 17:07 Dose: 80 mls/hr Documented by: [id number] Ketorolac Tromethamine (Toradol) 15 mg IV Q6H PRN PRN Reason: Mild pain/fever Stop: 02/07/19 22:42 Last Admin: 02/03/19 08:07 Dose: 15 mg Documented by: [id number] Admin: 02/03/19 00:39 Dose: 15 mg Documented by: [id number] Menthol (Nice) 1 azul BUCCAL UD PRN PRN Reason: Sore Throat Stop: 03/05/19 17:01 Last Admin: 02/03/19 17:23 Dose: 1 azul Documented by: [id number] Ondansetron HCl (Zofran) 4 mg IV Q6H PRN PRN Reason: nausea or vomiting Stop: 03/04/19 22:42 Last Admin: 02/03/19 17:25 Dose: 4 mg Documented by: [id number] Admin: 02/03/19 00:31 Dose: 4 mg Documented by: [id number] Pantoprazole Sodium (Protonix) 40 mg PO [facility] Stop: 03/05/19 08:59 Last Admin: 02/03/19 08:13 Dose: 40 mg Documented by: [id number] Tamoxifen Citrate (Nolvadex) 20 mg PO [facility] Stop: 03/05/19 08:59 Last Admin: 02/03/19 08:33 Dose: 20 mg Documented by: [id number] Cosigned by: [id number] Discontinued Medications Bupivacaine HCl/Epinephrine Bitart (Sensorcaine/Epinephrine 0.5% Mpf 1:200,000) Confirm Administered Dose 30 ml .ROUTE .STK-MED ONE Stop: 02/03/19 12:16 Last Admin: 02/03/19 13:39 Dose: 10 ml Documented by: [id number] Fentanyl Citrate (Fentanyl Citrate) 25 mcg IV Q5M PRN PRN Reason: PACU Use Only-Pain Stop: 02/03/19 16:27 Last Admin: 02/03/19 14:21 Dose: 25 mcg Documented by: [id number] Admin: 02/03/19 14:16 Dose: 25 mcg Documented by: [id number] Admin: 02/03/19 14:11 Dose: 25 mcg Documented by: [id number] Admin: 02/03/19 14:06 Dose: 25 mcg Documented by: [id number] Hydromorphone HCl (Dilaudid) 0.5 mg IV NOW STA Stop: 02/02/19 18:17 Last Admin: 02/02/19 18:23 Dose: 0.5 mg Documented by: [id number] Hydromorphone HCl (Dilaudid) 0.5 mg IV NOW STA Stop: 02/02/19 20:07 Last Admin: 02/02/19 20:43 Dose: 0.5 mg Documented by: [id number] Acetaminophen (Ofirmev) 1,000 mg in 100 mls @ 400 mls/hr IV NOW STA Stop: 02/02/19 18:00 Last Infusion: 02/02/19 18:22 Dose: 0 mls/hr Documented by: [id number] Admin: 02/02/19 18:05 Dose: 400 mls/hr Documented by: [id number] Sodium Chloride (Nss 1000ml) 1,000 mls @ 999 mls/hr IV .Q1H1M YUDITH Stop: 02/02/19 18:45 Last Infusion: 02/02/19 19:50 Dose: 0 mls/hr Documented by: [id number] Admin: 02/02/19 18:06 Dose: 999 mls/hr Documented by: [id number] Cefoxitin Sodium (Mefoxin) 2,000 mg in 60 mls @ 100 mls/hr IV NOW STA Stop: 02/02/19 20:29 Last Infusion: 02/02/19 21:31 Dose: 0 mls/hr Documented by: [id number] Admin: 02/02/19 20:43 Dose: 100 mls/hr Documented by: [id number] Lactated Ringer's (Lr) 1,000 mls @ 125 mls/hr IV .Q8H YUDITH Stop: 03/04/19 22:42 Last Infusion: 02/03/19 15:47 Dose: 0 mls/hr Documented by: [id number] Admin: 02/03/19 09:06 Dose: 125 mls/hr Documented by: [id number] Infusion: 02/03/19 08:56 Dose: 125 mls/hr Documented by: [id number] Admin: 02/03/19 05:48 Dose: Not Given Documented by: [id number] Infusion: 02/03/19 05:44 Dose: 125 mls/hr Documented by: [id number] Infusion: 02/03/19 05:08 Dose: 0 mls/hr Documented by: [id number] Admin: 02/03/19 00:20 Dose: 125 mls/hr Documented by: [id number] Ioversol (Optiray 320 100ml) 94 ml IV ONCE PRN PRN Reason: Interaction Checking Stop: 02/06/19 19:46 Last Admin: 02/02/19 19:47 Dose: 94 ml Documented by: [id number] Metoclopramide HCl (Reglan) 10 mg IV NOW STA Stop: 02/02/19 18:17 Last Admin: 02/02/19 18:23 Dose: 10 mg Documented by: [id number] Ondansetron HCl (Zofran) 4 mg IV NOW STA Stop: 02/02/19 17:45 Last Admin: 02/02/19 18:05 Dose: 4 mg Documented by: [id number] Ondansetron HCl (Zofran) 4 mg IV NOW STA Stop: 02/02/19 20:07 Last Admin: 02/02/19 22:13 Dose: Not Given Documented by: [id number] Medical Decision Making Differential Diagnosis Differential diagnoses includes but is not limited to gastritis, peptic ulcer disease, GERD, gallbladder disease, pancreatitis, small bowel obstruction, acute coronary syndrome, pericarditis, ischemic bowel, irritable bowel disease, irritable bowel syndrome, appendicitis, diverticulitis, malignancy, hernia, urinary tract infection, torsion, perforation, trauma, infectious. Medical Records Attestation: I reviewed the patient's medical records. Home Medications Current Medication List: was personally reviewed by me Laboratory Data Attestation: I reviewed the patient's lab results. Result diagrams: 02/03/19 05:09 02/03/19 05:09 Lab Results 02/02/19 02/02/19 Range/Units 18:00 18:00 WBC 3.88 L (4.8-10.8) K/uL RBC 4.20 (4.2-5.4) M/uL Hgb 13.2 (12.0-16.0) g/dL Hct 39.8 (37-47) % MCV 94.8 (80-100) fL MCH 31.4 (25-34) pg MCHC 33.2 (32-36) g/dL RDW Std Deviation 45.9 (36.4-46.3) fL RDW Coeff of Phani 13.2 (11.5-14.5) % Plt Count 157 (130-400) K/uL MPV 9.9 (7.4-10.4) fL Immature Gran % (Auto) 0.0 % Neut % (Auto) 51.0 % Lymph % (Auto) 36.6 % [place] % (Auto) 8.5 % Eos % (Auto) 3.6 % Baso % (Auto) 0.3 % Immature Gran # (Auto) 0.00 (0.00-0.02) K/uL Neut # (Auto) 1.98 (1.4-6.5) K/uL Lymph # (Auto) 1.42 (1.2-3.4) K/uL [place] # (Auto) 0.33 (0.11-0.59) K/uL Eos # (Auto) 0.14 (0-0.5) K/uL Baso # (Auto) 0.01 (0-0.2) K/uL Sodium 141 (136-145) mmol/L Potassium 4.1 (3.5-5.1) mmol/L Chloride 106 (98-107) mmol/L Carbon Dioxide 28 (21-32) mmol/L Anion Gap 7.0 (3-11) BUN 20 H (7-18) mg/dl Creatinine 1.25 H (0.6-1.2) mg/dl Est Cr Clr Drug Dosing Not Reportable Est GFR ( Amer) 50.5 Est GFR (Non-Af Amer) 43.5 BUN/Creatinine Ratio 15.9 (10-20) Glucose 133 H (70-99) mg/dl Calcium 8.7 (8.5-10.1) mg/dl Total Bilirubin 0.2 (0.2-1) mg/dl AST 16 (15-37) U/L ALT 24 (12-78) U/L Alkaline Phosphatase 55 (45-117) U/L Total Creatine Kinase 77 (26-192) U/L CK-MB (CK-2) 1.5 (0.5-3.6) ng/ml CK/CKMB % Calc 1.9 (0-3.0) Troponin I < 0.015 (0-0.045) ng/ml Total Protein 7.2 (6.4-8.2) gm/dl Albumin 3.7 (3.4-5.0) gm/dl Globulin 3.5 (2.5-4.0) gm/dl Albumin/Globulin Ratio 1.1 (0.9-2) Lipase 171 (73-393) U/L Imaging Data Radiologist's Impression: Radiology results as stated below per my review and the radiologist's interpretation: XR chest 1V portable CLINICAL HISTORY: Atypical chest pain COMPARISON STUDY: 08/02/2018 FINDINGS: The cardiac and mediastinal contours are normal. There is no evidence of focal pulmonary consolidation. There is no evidence of failure. No pleural effusions are visualized. The patient appears mildly hyperexpanded. IMPRESSION: No active disease in the chest. Electronically signed by: Mario Alberto Jimenez M.D. 02/02/2019 6:13 PM BILIARY ULTRASOUND CLINICAL HISTORY: Right upper quadrant abdominal pain COMPARISON STUDY: December 07, 2017 FINDINGS: The pancreas appears sonographically normal. No hepatic masses are visualized. There is slight increase in hepatic echogenicity. There is focal fatty sparing adjacent to gallbladder fossa. Multiple gallstones are visualized. There is trace pericholecystic fluid. There is borderline gallbladder wall thickening. There is no ductal dilatation. The common bile duct measures 4 mm. There is no right-sided hydronephrosis. There is an extrarenal pelvis. IMPRESSION: 1. Mild gallbladder distention. Cholelithiasis. Borderline gallbladder wall thickening and trace pericholecystic fluid. Clinical correlation in regards to acute cholecystitis is recommended. If clinically indicated, a nuclear medicine hepatic biliary study could be performed to assess cystic duct patency Electronically signed by: Mario Alberto Jimenez M.D. 02/02/2019 7:[address] abd pelvis IV con only CLINICAL HISTORY: Epigastric pain COMPARISON STUDY: 03/09/2015, ultrasound dated 02/02/2019 TECHNIQUE: The patient was scanned in a dynamic helical fashion during intravenous administration of 94 cc of Optiray 320. A dose lowering technique was utilized adhering to the principles of ALARA. CT DOSE: 506.68 mGy.cm FINDINGS: Lower chest: There are mild dependent atelectatic changes. Liver: The contrast-enhanced liver is normal in size, contour, and attenuation. There is no intrahepatic biliary ductal dilatation. The hepatic veins and portal veins are patent. Gallbladder: Gallstones visualized on the ultrasound study are nonvisible on CT scanning. There is no significant pericholecystic infiltration. Spleen: Normal in size and attenuation. Pancreas: Unremarkable. Adrenal glands: Unremarkable. Kidneys: There is symmetric renal cortical enhancement. The kidneys are normal in size without hydronephrosis. Bowel: There are no transition zones to indicate bowel obstruction. The appendix appears normal. There is no acute diverticulitis. There is mild fecal retention. Peritoneum: There is no intraperitoneal free air or abdominal ascites. Vasculature: The abdominal aorta is normal in course and caliber. Adenopathy: None. Pelvic viscera: The bladder, and pelvic viscera are unremarkable. Skeletal structures: Moderately advanced arthritic changes are present within the hips. IMPRESSION: 1. No evidence of bowel obstruction. No evidence of free air 2. Normal appendix. No evidence of acute diverticulitis 3. Multiple gallstones described in the prior ultrasound study cannot be visualized on CT scanning. There is no significant infiltration of the pericholecystic fat. Electronically signed by: Mario Alberto Jimenez M.D. 02/02/2019 8:12 PM ECG Data Attestation: I personally reviewed and interpreted this ECG as follows: Indication: abdominal pain Rate (beats per minute): 61 Rhythm: normal sinus Findings: + other (Normal axis, QT is 442); no ST depression and no ST elevation Blood Pressure Blood Pressure Findings: Elevated blood pressure Blood Pressure Disposition: further management by hospitalist FREDRICK Norwood This is a 68-year-old female who presents to the emergency department complaining of epigastric pain. Patient has had intractable vomiting since arrival to the emergency department. An IV was established, the patient was given normal saline bolus, Zofran, Reglan. She was sent for an ultrasound of her right upper quadrant which was concerning for acute cholecystitis. Patient was started on Mefoxin and. I did discuss the case with the surgical team who asked that the patient be admitted to the medicine service. Patient was in agreement with the treatment plan. Impression & Plan Acute cholecystitis Discharge Plan Visit Data *Final* Discharge Date/Time: 02/02/19 22:12 Chief Complaint: Abdominal Pain Stated Complaint: ABD PAIN, SOB, VOMITING ED Provider: Juanpablo Guerrier Discharge Problem: Acute cholecystitis Patient Disposition: Admitted As Inpatient Discharge Instructions Interventions: ED Discharge Assessment Last Done: 02/02/19 22:12 The scribe's documentation has been prepared under my direction and personally reviewed by me in its entirety. I confirm that the note above accurately reflects all work, treatment, procedures, and medical decision making performed by me.
[2019-02-04] MEDS: cefOXitin 2,000 MG in DEXTROSE 5% 50 ML IV SCH ×2 (03:03→12:01)
[2019-02-04] MEDS: LACTATED RINGER'S 1,000 ML IV SCH (03:03)
[2019-02-04 06:04] LABS: Hematocrit (blood only) 34.7 % (37-47); Hemoglobin 11.3 g/dL (12.0-16.0); Mean Corpuscular Hemoglobin 30.8 pg (25-34); Mean Corpuscular Hgb Conc 32.6 g/dL (32-36); Mean Corpuscular Volume 94.6 fL (80-100); Mean Platelet Volume 10.1 fL (7.4-10.4); Platelet Count 132 K/uL (130-400); RDW Coefficient of Variation 13.3 % (11.5-14.5); RDW Standard Deviation 46.4 fL (36.4-46.3); Red Blood Count 3.67 M/uL (4.2-5.4); White Blood Count 4.62 K/uL (4.8-10.8)
[2019-02-04 06:44] LABS: Albumin Level 2.9 gm/dl (3.4-5.0); BUN Creatinine Ratio 7.5 (10-20); Bilirubin Direct 1.4 mg/dl (0-0.2); Bilirubin,Total 2.2 mg/dl (0.2-1); Calcium 8.5 mg/dl (8.5-10.1); Creatinine Clr Calc Pharmacy 42.1 ml/min; Est GFR (African American) 45.2; Globulin 2.9 gm/dl (2.5-4.0); Potassium 4.1 mmol/L (3.5-5.1); Total Protein 5.8 gm/dl (6.4-8.2)
--- NOTE | 2019-02-04 08:44 | Surgery Progress Note ---
Date of Service February 04, 2019 Assessment & Plan (1) Acute cholecystitis: POD#1 laparoscopic cholecystectomy Tolerating clear liquids, advancing diet as tolerates Pain overall well managed LFT's uptrending this AM, Tbili: 2.2 (0.6), AST: 255, ALT: 223 Will discuss discharge plan with Dr. Farris as above. doing well surgically hold d/c b/c of LFT's. will recheck tomorrow AM. D/c tomorrow if LFT's improve Subjective Patient endorses some mild post surgical soreness in her upper abdomen, otherwise her pain is much improved. She has tolerated clear liquids without nausea/vomiting. Looking forward to eating something more substantial. Says she is burping, but not passing much flatus. Physical Exam Physical Exam: awake/alert/sitting up in chair Respiratory: normal respiratory effort Gastrointestinal (Abdomen): Inspection/Auscultation: + abdomen distended (mildly) and + abdominal surgical incision (c/d/i with dermabond overtop, some bijan-incisional echymosis ) Percussion/Palpation: abdomen soft; abdomen nontender Results & Data Vital Signs (Past 12 Hours) Vital Signs Temp Pulse Resp BP Pulse Ox 02/04/19 07:11 36.8 C 72 22 143/71 H 92 02/04/19 03:10 37.0 C 73 16 151/68 H 92 02/03/19 23:22 37.2 C 70 16 148/63 H 94 02/03/19 21:54 72 17 146/66 H 94 PG Care Time/CCT Total # of Minutes Spent Total Time Spent with Patient: Total time spent is greater than 50% in coordination of care (as documented) at patient's floor/unit and/or counseling patient:
[2019-02-04] MEDS: PANTOprazole 40 MG TAB PO SCH (09:14)
[2019-02-04] MEDS: GABAPENTIN 300 MG CAP PO SCH ×3 (09:14→22:03)
[2019-02-04] MEDS: ESCITALOPRAM OXALATE 20 MG TAB PO SCH (09:14)
[2019-02-04] MEDS: BuPROPion SR 100 MG TABCR PO SCH ×2 (09:14→22:02)
[2019-02-04] MEDS: TAMOXIFEN CITRATE 10 MG TABLET PO SCH (09:14)
--- NOTE | 2019-02-04 14:30 | Hospitalist Progress Note ---
Date of Service February 04, 2019 Assessment & Plan (1) Acute cholecystitis: S/p lap bunny on 02/[address] Farris - LFTs up today; will trend - D/c tomorrow if improved. - F/u per surgery. (2) Cholelithiasis: Symptomatic. - As above (3) Multiple sclerosis: Follows with neurology. Has been stable. She was taken off suppressive therapy when developed breast CA. - Outpatient follow up (4) Breast cancer: In remission. - Continue tamoxifen (5) Leukopenia: Chronic and at baseline. Patient reports this is due to her use of tamoxifen. - Monitor (6) DVT prophylaxis: Early ambulation Subjective Feels better after her lap bunny, though she still has some epigastric pain which she reports is long-standing. No nausea or vomiting. Minimal passing of flatus. Physical Exam Constitutional: WD/WN, vitals as above Eyes: EOM intact bilaterally; no conjunctival abnormality ENMT: external ear and nose normal, oropharynx normal Neck: trachea midline, no thyromegaly normal visual inspection Respiratory: normal respiratory effort, lungs clear to auscultation no respiratory distress Cardiovascular: RRR, no murmur, no edema Gastrointestinal (Abdomen): Inspection/Auscultation: abdomen normal to inspection and + abdominal surgical incision (4, no bleeding, minimal bruising. ); abdomen not distended Musculoskeletal: no cyanosis or clubbing, extremities motor strength 5/5 Skin: no rashes, warm and dry Neurologic: moves all extremities and awake Psychiatric: Orientation: alert, oriented to person and cooperative Results & Data Vital Signs (Past 12 Hours) Vital Signs Temp Pulse Resp BP Pulse Ox 02/04/19 07:11 36.8 C 72 22 143/71 H 92 02/04/19 03:10 37.0 C 73 16 151/68 H 92 PG Care Time/CCT Total # of Minutes Spent Total Time Spent with Patient: Total time spent is greater than 50% in coordination of care (as documented) at patient's floor/unit and/or counseling patient:
[2019-02-04] MEDS: HYDROCODONE/ACETAMOPHEN 5/325MG TAB PO PRN (22:08)
[2019-02-05] MEDS: HYDROCODONE/ACETAMOPHEN 5/325MG TAB PO PRN (01:10)
[2019-02-05] MEDS ORDERED: SODIUM CHLORIDE 0.65% NA SOLN 45 ML (OCEAN) PRN (01:17)
[2019-02-05 05:33] LABS: Basophils # (auto) 0.02 K/uL (0-0.2); Basophils % (auto) 0.4 %; Eosinophils # (auto) 0.17 K/uL (0-0.5); Eosinophils % (auto) 3.4 %; Hematocrit (blood only) 35.8 % (37-47); Hemoglobin 11.5 g/dL (12.0-16.0); Lymphocytes # (auto) 1.73 K/uL (1.2-3.4); Lymphocytes % (auto) 34.3 %; Mean Corpuscular Hemoglobin 30.6 pg (25-34); Mean Corpuscular Hgb Conc 32.1 g/dL (32-36); Mean Corpuscular Volume 95.2 fL (80-100); Mean Platelet Volume 10.3 fL (7.4-10.4); Monocytes # (auto) 0.59 K/uL (0.11-0.59); Monocytes % (auto) 11.7 %; Neutrophils # (auto) 2.53 K/uL (1.4-6.5); Neutrophils % (auto) 50.2 %; Platelet Count 137 K/uL (130-400); RDW Coefficient of Variation 13.5 % (11.5-14.5); Red Blood Count 3.76 M/uL (4.2-5.4); White Blood Count 5.04 K/uL (4.8-10.8)
[2019-02-05 06:09] LABS: Albumin Level 3.1 gm/dl (3.4-5.0); BUN Creatinine Ratio 10.3 (10-20); Bilirubin Direct 0.2 mg/dl (0-0.2); Bilirubin,Total 0.7 mg/dl (0.2-1); Calcium 8.8 mg/dl (8.5-10.1); Creatinine Clr Calc Pharmacy 50.1 ml/min; Est GFR (African American) 55.8; Est GFR (Non-African American) 48.2; Potassium 3.8 mmol/L (3.5-5.1); Total Protein 6.3 gm/dl (6.4-8.2)
--- NOTE | 2019-02-05 07:52 | Surgery Progress Note ---
Date of Service February 05, 2019 Assessment & Plan (1) Acute cholecystitis: POD 2 lap bunny LFTs normalizing ok for d/c as above. feeling well. ok for d/c. instructions given Subjective tolerated diet, no new c/o Physical Exam Gastrointestinal (Abdomen): Percussion/Palpation: abdomen soft Results & Data Vital Signs (Past 12 Hours) Vital Signs Temp Pulse Pulse Resp BP Pulse Ox 02/05/19 07:24 36.6 C 62 18 132/65 93 02/04/19 23:00 37 C 72 16 150/70 H 90 PG Care Time/CCT Total # of Minutes Spent Total Time Spent with Patient: Total time spent is greater than 50% in coordination of care (as documented) at patient's floor/unit and/or counseling patient:
[2019-02-05] MEDS: BuPROPion SR 100 MG TABCR PO SCH (07:56)
[2019-02-05] MEDS: GABAPENTIN 300 MG CAP PO SCH (07:56)
[2019-02-05] MEDS: PANTOprazole 40 MG TAB PO SCH (07:56)
[2019-02-05] MEDS: ESCITALOPRAM OXALATE 20 MG TAB PO SCH (07:57)
[2019-02-05] MEDS: TAMOXIFEN CITRATE 10 MG TABLET PO SCH (07:57)
--- NOTE | 2019-02-05 16:33 | Discharge Summary ---
Date of Service February 05, 2019 Principal Diagnosis Cholecystitis Discharge Exam Constitutional WD/WN, vitals as above Eyes EOM intact bilaterally; no conjunctival abnormality ENMT external ear and nose normal, oropharynx normal Neck trachea midline, no thyromegaly normal visual inspection Respiratory normal respiratory effort, lungs clear to auscultation no respiratory distress Cardiovascular RRR, no murmur, no edema Gastrointestinal (Abdomen) Inspection/Auscultation: abdomen normal to inspection and + abdominal surgical incision (4, no bleeding, minimal bruising. ); abdomen not distended Musculoskeletal no cyanosis or clubbing, extremities motor strength 5/5 Skin no rashes, warm and dry Neurologic moves all extremities and awake Psychiatric Orientation: alert, oriented to person and cooperative Discharge Data Allergies Allergy/AdvReac Type Severity Reaction Status Date / Time Penicillins Allergy Intermediate HIVES Verified 02/02/19 18:34 clonazepam Allergy Unknown Depression; Verified 02/02/19 18:34 tetracycline AdvReac Intermediate rash Verified 02/02/19 18:34 zolpidem AdvReac Intermediate sleep Verified 02/02/19 18:34 eating episodes adhesive AdvReac Mild skin Verified 02/02/19 18:34 tears, skin blisters erythromycin base AdvReac Mild GI SYMPTOMS Verified 02/02/19 18:34 Consultations 02/02/19 20:10 Consult General Surgery Stat 02/02/19 20:17 ED Decision to Admit Stat Procedures Performed Operation Date: 02/03/19 08:00 Actual Procedures p Laparoscopic Cholecystectomy(Not Applicable) - Alexx Farris, DO Ordered Studies 02/02/19 17:44 CT abd pelvis IV con only Stat 02/02/19 17:45 US abdomen limited Stat Hospital Course (1) Acute cholecystitis: S/p lap bunny on 02/[address] Farris - LFTs were temporarily up, but returning to normal by dishcarge. - Encouraged to use Miralax to help bowels move. She reports she has constipation with prior surgeries. - Follow up with surgery in the office. (2) Cholelithiasis: Symptomatic. - As above (3) Multiple sclerosis: Follows with neurology. Has been stable. She was taken off suppressive therapy when developed breast CA. - Outpatient follow up (4) Breast cancer: In remission. - Continue tamoxifen (5) Leukopenia: Chronic and at baseline. Patient reports this is due to her use of tamoxifen. - Monitor (6) DVT prophylaxis: Early ambulation Total Time Total Time Spent Total Time Spent (In Minutes): 35 Discharge Plan Discharge Items Patient Disposition: Home - Self-Care Reason For Visit: CHOLECYSTITIS, SYMPTOMATIC CHOLELITHIASIS Discharge Diagnosis: acute cholecystitis Activity: As commented below Lifting: No more than 10 pounds Bathing: No limitations Driving/Machine Use: 1 week Non-emergency contact: Surgeon Call non-emergency contact if: you have any medication questions, your pain is not controlled, you have a fever, your temperature is above 101.5 and your wound has increased redness Follow-up/Referrals: Isadora Pacheco MD [Primary Care Provider] - 02/10/19 2:00 pm (Please, follow up with Dr. Pacheco on SundayFebruary 10 at 2:00 pm. *If you need to change this appointment, call the office at [phone].) Alexx Farris DO [Surgeon] - 02/10/19 9:40 am (Please, follow up with Dr. Farris on SundayFebruary 10 at 9:40 am. *The office is located at [address] [place] [address] in [place]. If you need to change this appointment, call the office at [phone].) Diet: Low Fat Addtl Attending Provider Instructions: Post-Surgical ~Discharge Instructions Activity Recommendations: - lifting limitation: (10 pounds for 2 weeks), - exercise/sex/sports limit: (nonstrenuous for 2 weeks), - driving or machine use limit: (none for 1 week), - Shower/bathe limit: (may shower beginning tomorrow) Diet: - Resume previous diet SPECIAL CARE INSTRUCTIONS: - May shower in 24 hours. Let water run over area and pat dry. - Call the surgeon's office with any questions or concerns - (ex. temperature higher than 101 degrees F, excessive bleeding or pain). MEDICATIONS: - Resume previous medications unless instructed otherwise by your surgeon. - Ibuprofen 600 mg every 6 hours with food FOLLOW UP VISIT: - See above Pending Studies at Discharge: No Stand-Alone Forms: Call Back Authorization, [facility] [employer] Opio[facility] Pain Management Medications and DC Order Prescriptions: New hydrocodone-acetaminophen [[place]] 5-325 mg tablet 1 - 2 tab PO Q4H PRN (Reason: pain, initial therapy, max 8 tabs daily) Qty: 15 RF: 0 Continued omeprazole 20 mg tablet,delayed release (DR/EC) 20 mg PO QAM Qty: 30 RF: 5 hydrocodone-acetaminophen 5-325 mg tablet 0.5 tab PO HS Qty: 30 RF: 0 Citrucel 500 mg tablet 500 mg PO HS RF: 0 doxylamine succinate 25 mg Tablet 12.5 mg PO HS PRN (Reason: Sleep) RF: 0 melatonin 10 mg Tablet 10 mg PO HS PRN (Reason: Sleep) RF: 0 ibuprofen 200 mg Tablet 200 mg PO QAM RF: 0 Stool Softener 50 mg Capsule 50 mg PO HS RF: 0 multivitamin Capsule 1 cap PO QAM RF: 0 tamoxifen 20 mg Tablet 20 mg PO QAM RF: 0 bupropion HCl [Wellbutrin SR] 200 mg Tablet Sustained-Release 12 Hr 200 mg PO BID RF: 0 cholecalciferol (vitamin D3) [Vitamin D3] 2,000 unit Capsule 2,000 unit PO BID RF: 0 calcium-vitamin D3-vitamin K [Viactiv] 500-500-40 mg-unit-mcg Tablet,Chewable 1 tab PO QAM RF: 0 omega 4-cma-emv-fish oil [Fish Oil] 1,000 mg (120 mg-180 mg) Capsule 1 cap PO QAM RF: 0 gabapentin 300 mg capsule 300 mg PO TID RF: 0 dicyclomine 10 mg capsule 10 mg PO DAILY PRN (Reason: abdominal pain) RF: 0 escitalopram oxalate 20 mg tablet 20 mg PO QAM RF: 0 Discharge Orders: Discharge Order (Routine); Ordered 02/05/19 Ordered By: Ethan Mistry/Other Patient Handouts: Surgery Prevent DVT After Admission Data Admit Date/Time: 02/02/19 21:00 Attending Provider: Ethan Espinoza Admit Provider: Isra Hugo Primary Care Provider: Isadora Pacheco Other Providers: Ethan Espinoza ; Alexx Farris ; Isra Hugo Other Interventions: Discharge Summary Assessment (RN) Last Done: 02/05/19 10:57 DC Date/Time DO NOT enter until pt leaves facility: 02/05/19 12:49
== END 2019-02-05 12:49 | disposition home or self-care (01) | DRG 418 ==
LOC: ED 17:14 → 3N 21:00 → SUATTDRO 21:00 → 3N 22:12

== ENCOUNTER 2019-10-29 05:25 | Inpatient (IN) ==
--- NOTE | 2019-06-27 10:18 | PAT Medication Instructions ---
Medication Instructions Date of Service June 27, 2019 Home Medications Medication Instructions Recorded meclizine 25 mg tablet 25 mg PO TID PRN #90 tab 02/10/19 hydrocodone 5 mg-acetaminophen 325 0.5 tab PO HS #15 tab 06/13/19 mg tablet Stool Softener 50 mg PO HS cholecalciferol (vitamin D3) [Vitamin D3] 2,000 unit PO BID ibuprofen 200 mg PO QAM multivitamin 1 cap PO QAM omega 1-uhd-xhd-fish oil [Fish Oil] 1 cap PO QAM tamoxifen 20 mg PO QAM dicyclomine 10 mg PO DAILY PRN meclizine 25 mg tablet 25 mg PO TID PRN melatonin 10 mg tablet 10 mg PO HS hydrocodone 5 mg-acetaminophen 325 mg tablet 0.5 tab PO HS bupropion HCl 200 mg PO BID calcium-vitamin D3-vitamin K [Viactiv] 1 tab PO BID denosumab [Prolia] 60 mg SUBCUT UD escitalopram oxalate 20 mg PO HS gabapentin 300 mg PO QAM gabapentin 600 mg PO HS methylcellulose (with sugar) [Citrucel (sucrose)] 2 tsp PO DAILY omeprazole 20 mg PO BID Continue as directed denosumab [Prolia] 60 mg SUBCUT UD ASK your surgeon for instructions ibuprofen 200 mg PO QAM ASK your prescriber and surgeon tamoxifen 20 mg PO QAM STOP taking 2 weeks before surgery (or as soon as possible if surgery is within 2 weeks) omega 0-hap-yok-fish oil [Fish Oil] 1 cap PO QAM DO NOT take the morning of surgery cholecalciferol (vitamin D3) [Vitamin D3] 2,000 unit PO BID multivitamin 1 cap PO QAM dicyclomine 10 mg PO DAILY PRN calcium-vitamin D3-vitamin K [Viactiv] 1 tab PO BID methylcellulose (with sugar) [Citrucel (sucrose)] 2 tsp PO DAILY Take morning of surgery With a small sip of water, OTHERWISE NOTHING TO EAT OR DRINK AFTER MIDNIGHT: meclizine 25 mg tablet 25 mg PO TID PRN (if needed) bupropion HCl 200 mg PO BID gabapentin 300 mg PO QAM omeprazole 20 mg PO BID Take evening before surgery Stool Softener 50 mg PO HS cholecalciferol (vitamin D3) [Vitamin D3] 2,000 unit PO BID dicyclomine 10 mg PO DAILY PRN (if needed) meclizine 25 mg tablet 25 mg PO TID PRN (if needed) melatonin 10 mg tablet 10 mg PO HS hydrocodone 5 mg-acetaminophen 325 mg tablet 0.5 tab PO HS bupropion HCl 200 mg PO BID calcium-vitamin D3-vitamin K [Viactiv] 1 tab PO BID escitalopram oxalate 20 mg PO HS gabapentin 600 mg PO HS omeprazole 20 mg PO BID Other Notes If you have any questions please call us at [phone] or [phone] or [phone] or [phone]
--- NOTE | 2019-10-08 10:20 | PAT Medication Instructions ---
Medication Instructions Date of Service October 08, 2019 Home Medications Medication Instructions Recorded meclizine 25 mg tablet 25 mg PO TID PRN #90 tab 02/10/19 escitalopram oxalate 20 mg tablet 20 mg PO HS 90 Days #90 tab 07/17/19 hydrocodone 5 mg-acetaminophen 325 0.5 tab PO HS #15 tab 09/28/ mg tablet Stool Softener 50 mg PO HS ibuprofen 200 - 400 mg PO QAM multivitamin 1 cap PO QAM omega 9-qoi-cow-fish oil [Fish Oil] 1 cap PO QAM tamoxifen 20 mg PO QAM dicyclomine 10 mg PO DAILY PRN meclizine 25 mg tablet 25 mg PO TID PRN melatonin 10 mg tablet 15 mg PO HS bupropion HCl 200 mg PO BID calcium-vitamin D3-vitamin K [Viactiv] 1 tab PO BID denosumab [Prolia] 60 mg SUBCUT UD gabapentin 300 mg PO QAM gabapentin 600 mg PO HS methylcellulose [Citrucel (sucrose)] 2 tsp PO HS omeprazole 20 mg PO BID escitalopram oxalate 20 mg tablet 20 mg PO HS hydrocodone 5 mg-acetaminophen 325 mg tablet 0.5 tab PO HS cholecalciferol (vitamin D3) [Vitamin D3] 50 mcg PO BID Continue as directed denosumab [Prolia] 60 mg SUBCUT UD ASK your surgeon for instructions ibuprofen 200 - 400 mg PO QAM STOP taking 2 weeks before surgery omega 1-nvg-nxi-fish oil [Fish Oil] 1 cap PO QAM DO NOT take the morning of surgery multivitamin 1 cap PO QAM dicyclomine 10 mg PO DAILY PRN calcium-vitamin D3-vitamin K [Viactiv] 1 tab PO BID cholecalciferol (vitamin D3) [Vitamin D3] 50 mcg PO BID Take morning of surgery With a small sip of water, OTHERWISE NOTHING TO EAT OR DRINK AFTER MIDNIGHT: tamoxifen 20 mg PO QAM meclizine 25 mg tablet 25 mg PO TID PRN (if needed) bupropion HCl 200 mg PO BID gabapentin 300 mg PO QAM omeprazole 20 mg PO BID Take evening before surgery Stool Softener 50 mg PO HS dicyclomine 10 mg PO DAILY PRN (if needed) meclizine 25 mg tablet 25 mg PO TID PRN (if needed) melatonin 10 mg tablet 15 mg PO HS bupropion HCl 200 mg PO BID calcium-vitamin D3-vitamin K [Viactiv] 1 tab PO BID gabapentin 600 mg PO HS methylcellulose [Citrucel (sucrose)] 2 tsp PO HS omeprazole 20 mg PO BID escitalopram oxalate 20 mg tablet 20 mg PO HS hydrocodone 5 mg-acetaminophen 325 mg tablet 0.5 tab PO HS cholecalciferol (vitamin D3) [Vitamin D3] 50 mcg PO BID Other Notes If you have any questions please call us at [phone] or [phone] or [phone] or [phone]
--- NOTE | 2019-10-09 12:58 | Anesthesiology Consultation ---
Date of Service October 09, 2019 Assessment & Plan (1) Encounter for pre-operative examination: PATIENT HAS MS -- pt aware SAB contraindicated and will have general anesthesia. Had GA for previous TKA and lap pete without issues [lap pete 02/02/19 = ETT 7.0, MAC #3]. COVID Status: As of 10/07 nurse assessment, patient denies travel to endemic area, known exposure/sick contacts, or symptoms of COVID19. Preoperative COVID19 testing to be completed prior to surgery. *L limb restriction* Chart Review Chart Review: Acceptable Risk for Surgery and Patient seen in Pre Admission Testing Teaching & Discussion Instructed NPO after midnight before surgery, except medications with 15 cc of water. Medication instructions provided according to the PAT guidelines. History Surgery Operation Date: 10/29/19 13:05 Proposed Procedures p Right Total Hip Arthroplasty - Frederic Soto MD Height/Weight Height: 5 ft 7.5 in Weight: 81.1 kg Allergies Allergy/AdvReac Type Severity Reaction Status Date / Time adhesive Allergy Unknown skin Verified 10/06/19 12:08 tears, skin blisters Penicillins Allergy Unknown HIVES Verified 10/06/19 12:08 tetracycline Allergy Unknown rash Verified 10/06/19 12:08 clonazepam AdvReac Unknown Depression Verified 10/06/19 12:08 erythromycin base AdvReac Unknown GI SYMPTOMS Verified 10/06/19 12:08 zolpidem AdvReac Unknown sleep Verified 10/06/19 12:08 eating episodes Medications Home Medications Medication Instructions Recorded Confirmed Last Taken Stool Softener 100 mg PO HS 07/29/18 10/09/19 04/08/19 21:00 ibuprofen 200 - 400 mg PO QAM 07/29/18 10/06/19 04/08/19 08:00 multivitamin 1 cap PO QAM 07/29/18 10/06/19 04/08/19 08:00 omega 6-ywx-vmj-fish oil [Fish Oil] 1 cap PO QAM 07/29/18 10/06/19 04/08/19 08:00 tamoxifen 20 mg PO QAM 07/29/18 10/06/19 04/08/19 08:00 dicyclomine 10 mg PO DAILY PRN 02/02/19 10/06/19 02/01/19 meclizine 25 mg tablet 25 mg PO TID PRN #90 tab 02/10/19 10/06/19 Unknown melatonin 10 mg tablet 15 mg PO HS tab 04/01/19 10/06/19 04/08/19 21:00 bupropion HCl 200 mg PO BID 06/24/19 10/06/19 Unknown calcium-vitamin D3-vitamin K 1 tab PO BID 06/24/19 10/06/19 Unknown [Viactiv] denosumab [Prolia] 60 mg SUBCUT UD 06/24/19 10/06/19 Unknown gabapentin 300 mg PO QAM 06/24/19 10/06/19 Unknown gabapentin 600 mg PO HS 06/24/19 10/06/19 Unknown methylcellulose (with sugar) 2 tsp PO HS 06/24/19 10/06/19 Unknown [Citrucel (sucrose)] omeprazole 20 mg PO BID 06/24/19 10/06/19 Unknown escitalopram oxalate 20 mg tablet 20 mg PO HS 90 Days #90 tab 07/17/19 10/06/19 Unknown hydrocodone 5 mg-acetaminophen 325 0.5 tab PO HS #15 tab 09/29/19 10/06/19 Unknown mg tablet cholecalciferol (vitamin D3) 50 mcg PO BID 10/06/19 10/06/19 Unknown [Vitamin D3] acetaminophen [Tylenol] 500 mg PO HS 10/09/19 10/09/19 Unknown Past Medical History Medical History Anxiety Breast cancer (Resolved ~02/2013) Cancer of central portion of left female breast (Resolved) *LEFT LIMB RESTRICTION* Carcinoma of upper-outer quadrant of left female breast (Resolved 02/25/13) "Abnormal left breast mammogram Status post ultrasound-guided biopsy 02/25/2013 finding invasive ductal carcinoma Status post partial mastectomy and sentinel lymph node biopsy Stage pTb [id number] Estrogen receptor positive progesterone receptor positive HER-2/amara negative Status post dose dense systemic chemotherapy Status post completion of radiation therapy utilizing hypo-fractionation completed 11/25/2013 received 5000 cGy " Cholelithiasis (Resolved) S/P LAP PETE Chronic leukopenia Ever since chemotherapy Depression GERD (gastroesophageal reflux disease) Heart murmur FUNCTIONAL, SINCE AGE 11 Herpes zoster Hiatal hernia History of breast cancer 5 YEARS AGO. LUMPECTOMY, CHEMO AND RADIATION. History of neuropathy D/T CHEMO TREATMENT-HANDS FEET Multiple sclerosis HAS BEEN IN REMISSION-FOLLOWS WITH DR. PARADA, [facility]. Osteoarthritis Temporomandibular joint disorder RIGHT SIDE-NO HX LOCKING Urinary incontinence SPORADIC OCCURENCE, CHRONIC PROBLEM Vertigo Exacerbated by sitting up too fast and turning to left side while laying down Exercise / Class Metabolic Activity II 4-5 Yardwork/Stairs/Walk up hill (Does stairs daily at home, denies Cp or SOB, using cane at times for ambulation) Past Family History Family History Aunt Family history of diabetes mellitus Grandfather (Maternal) Family history of melanoma Colorectal cancer Grandmother (Maternal) Hypertension Cancer liver cancer Mother Dementia Father Alcoholism Macular degeneration Rheumatoid arthritis Other Diabetes Heart disease Thyroid disorder Denies family history of Ovarian cancer Prostate cancer Myocardial infarction Breast cancer Lung cancer Stroke Past Surgical History Surgical History History of adenoidectomy History of breast lump removal LEFT History of cataract extraction with lens replacement R&L History of colonoscopy History of dental surgery 2 WISDOM TEETH History of dilatation and curettage History of esophagogastroduodenoscopy (EGD) History of left knee replacement History of tonsillectomy History of total left knee replacement AUGUST 2018 History of vascular access device AND SINCE REMOVED Hx laparoscopic cholecystectomy (02/03/19) Laparoscopic Cholecystectomy Dr. Farris 02/03/19 [facility] Past Anesthesia History No Hx of Anesthesia Complications and No Family Hx of Anesthesia Complications HAD GENERAL ANESTHESIA FOR L TKA D/T MS History of PONV No Hx of PONV and Hx of Motion Sickness Social History Smoking Status: Never smoker Do You Dip or Chew Tobacco: No Hx Alcohol Use: Yes Alcohol type: wine alcohol intake frequency: a few times a week Hx Substance Use: No substance use type: does not use Review of Systems Pt denies any recent chest pain, shortness of breath, palpitations, cough, fever or URI. Physical Exam Vital Signs BP: 122/70 P: 66bpm SPO2: 97% RA T: R: 16 ENMT Mouth: + dental restorations (few crowns, many molars one upper R incisor); no chipped teeth and no loose teeth Thyromental Distance: > or= 3.5 Finger Breadths (4) Mallampati Class: I Neck normal visual inspection and + limited neck extension (mildly) Respiratory normal respiratory effort Auscultation: lungs clear to auscultation bilaterally Cardiovascular Rate/Rhythm: regular rate and regular rhythm Heart Sounds: no murmur Extremities: no edema Testing Laboratory Results 10/09/19 13:15 10/09/19 13:15 PT 11.0 Seconds (9.0-12.0) 10/09/19 13:15 INR 1.0 (0.9-1.1) 10/09/19 13:15 APTT 25.9 Seconds (21.0-31.0) 10/09/19 13:15 Blood Type O Negative 10/09/19 13:15 Antibody Screen NEGATIVE 10/09/19 13:15 Electrocardiogram Date: 02/02/19 Findings: + NSR @ (61bpm) Chest X-Ray Date: 02/02/19 Findings: + NAD
[2019-10-09 14:24] LABS: Basophils # (auto) 0.02 K/uL (0-0.2); Basophils % (auto) 0.5 %; Eosinophils # (auto) 0.11 K/uL (0-0.5); Eosinophils % (auto) 2.6 %; Hematocrit (blood only) 40.6 % (37-47); Hemoglobin 13.1 g/dL (12.0-16.0); Lymphocytes # (auto) 1.45 K/uL (1.2-3.4); Lymphocytes % (auto) 34.1 %; Mean Corpuscular Hemoglobin 30.3 pg (25-34); Mean Corpuscular Hgb Conc 32.3 g/dL (32-36); Mean Platelet Volume 10.1 fL (7.4-10.4); Monocytes # (auto) 0.47 K/uL (0.11-0.59); Monocytes % (auto) 11.1 %; Neutrophils % (auto) 51.7 %; Platelet Count 184 K/uL (130-400); RDW Coefficient of Variation 12.7 % (11.5-14.5); RDW Standard Deviation 43.5 fL (36.4-46.3); Red Blood Count 4.32 M/uL (4.2-5.4); White Blood Count 4.25 K/uL (4.8-10.8)
[2019-10-09 14:43] LABS: Partial Thromboplastin Ratio 0.9; Partial Thromboplastin Time 25.9 Seconds (21.0-31.0)
[2019-10-09 14:57] LABS: BUN Creatinine Ratio 16.7 (10-20); Blood Urea Nitrogen 19 mg/dl (7-18); Calcium 9.2 mg/dl (8.5-10.1); Carbon Dioxide 27 mmol/L (21-32); Chloride 108 mmol/L (98-107); Est GFR (African American) 57.2; Est GFR (Non-African American) 49.4; Glucose 93 mg/dl (70-99); Potassium 4.1 mmol/L (3.5-5.1); Sodium 141 mmol/L (136-145)
[2019-10-09 14:58] LABS: C Reactive Protein < 0.29 mg/dl (0-0.29)
[2019-10-29] MEDS ORDERED: LR 60ML/HR IV SCH (06:00)
[2019-10-29] MEDS ORDERED: CEFAZOLIN 2000MG 2,000 MG/15 ML SYR IV SCH (06:00)
[2019-10-29] MEDS ORDERED: GABAPENTIN 300 MG CAP PO SCH (06:00)
[2019-10-29] MEDS ORDERED: FAMOTIDINE 20 MG TAB PO SCH (06:00)
[2019-10-29] MEDS ORDERED: LR 500ML BOLUS, THEN 15ML/HR IV SCH (06:00)
[2019-10-29] MEDS ORDERED: ACETAMINOPHEN 500 MG TAB PO SCH (06:00)
[2019-10-29] MEDS ORDERED: METOCLOPRAMIDE HCL 10 MG TABLET PO SCH (06:00)
[2019-10-29] MEDS ORDERED: TRANEXAMIC ACID 1,000 MG x 1 **For Topical Use TOP SCH (06:00)
[2019-10-29] MEDS ORDERED: TRANEXAMIC ACID 1,000 MG **IV Intra-op IV SCH (06:00)
[2019-10-29] MEDS ORDERED: BUPIVACAINE 0.5 % 5 MG/1 ML PF 10ML VIAL ONE (06:24)
[2019-10-29] MEDS ORDERED: fentaNYL citrate 100 MCG/2 ML VIAL ONE (06:25)
[2019-10-29] MEDS ORDERED: MIDAZOLAM HCL 1 MG/ML 2ML VIAL ONE (06:25)
[2019-10-29] MEDS ORDERED: LIDOCAINE HCL 2% 2 ML VIAL/AMP(20MG/ML) INFIL ONE (06:26)
[2019-10-29] MEDS ORDERED: ONDANSETRON INJ 2 MG/ML 2 ML VIAL ONE (06:27)
[2019-10-29] MEDS ORDERED: PROPOFOL IV EMULSION 10 MG/ML 20 ML VIAL IV ONE (06:27)
[2019-10-29] MEDS ORDERED: DEXAMETHASONE SOD INJ 4 MG/ML VIAL ONE (06:27)
--- NOTE | 2019-10-29 06:53 | History & Physical Bridge Note ---
Date of Service October 29, 2019 History & Physical Bridge Note I have examined the patient, reviewed the History & Physical and in the interval since the performance of the History & Physical I have noted the following changes of clinical significance: no changes noted
[2019-10-29] MEDS ORDERED: BACITRACIN INJ 50,000 UNIT VIAL ONE (06:59)
[2019-10-29] MEDS ORDERED: EPINEPHrine INJ 1 MG/ML AMP ONE (07:00)
[2019-10-29] MEDS ORDERED: BUPIVACAINE 0.5 % 5 MG/1 ML MPF 30ML VIAL ONE (07:00)
[2019-10-29] MEDS ORDERED: ONDANSETRON INJ 2 MG/ML 2 ML VIAL IV PRN ×2 (07:15→10:44)
[2019-10-29] MEDS ORDERED: ePHEDrine sulfate 50 MG/ML AMP IV PRN (07:15)
[2019-10-29] MEDS ORDERED: ATROPINE SULFATE 0.1 MG/ML 10ML SYR IV PRN (07:15)
[2019-10-29] MEDS ORDERED: ROCURONIUM BROMIDE 10 MG/ML 5 ML VIAL IV ONE (07:44)
[2019-10-29] MEDS ORDERED: HYDROmorphone INJ 2 MG/ML SYR/VIAL ONE (07:52)
[2019-10-29] MEDS ORDERED: ePHEDrine sulfate 50 MG/ML AMP ONE (08:06)
[2019-10-29] MEDS ORDERED: GLYCOPYRROLATE 0.2 MG/ML VIAL ONE ×2 (09:07→09:17)
[2019-10-29] MEDS ORDERED: NEOSTIGMINE METHYLSULFATE 5 MG/5 ML SYR ONE (09:07)
--- NOTE | 2019-10-29 09:31 | Post Operative Brief Note ---
PG Immediate Post Op with CF Date of Surgery October 29, 2019 Pre & Post Diagnosis Operation Date: 10/29/19 07:15 Pre-Op Diagnosis: RIGHT HIP DEGENERATIVE JOINT DISEASE Post-Op Diagnosis: RIGHT HIP DEGENERATIVE JOINT DISEASE I identified the patient and participated in the time-out.: Yes Procedure Operation Date: 10/29/19 07:15 Actual Procedures p Right Total Hip Arthroplasty, uncemented(Right) - Frederic Soto MD Surgeon Frederic Soto MD [employer] Imelda, PAC Estimated Blood Loss 300 Findings Consistent with Post-Op Diagnosis Fluids 500 cc Specimens Specimen Description: Permanent specimen A: right femoral head Drains Jaramillo Catheter (16fr jaramillo catheter placed without difficulty, jaramillo demonstrates clear yellow urine. Output measured and recorded by anesthesia.) Anesthesia Type General Complications none Disposition Accompanied Patient To Recovery: No Disposition: Recovery Room
--- NOTE | 2019-10-29 09:52 | Operative Report ---
Post Operative Report Pre & Post Diagnosis Operation Date: 10/29/19 07:15 Pre-Op Diagnosis: RIGHT HIP DEGENERATIVE JOINT DISEASE Post-Op Diagnosis: RIGHT HIP DEGENERATIVE JOINT DISEASE I identified the patient and participated in the time-out.: Yes Procedure Operation Date: 10/29/19 07:15 Actual Procedures p Right Total Hip Arthroplasty, uncemented(Right) - Frederic Soto MD Surgeon Frederic Soto MD Marketing Information Coordinator Imelda, PAC Estimated Blood Loss 300 Findings Consistent with Post-Op Diagnosis Operative findings revealed advanced right hip DJD. She had grade 4 [id number] disease of the femoral head and acetabulum. She had pretty significant anterior acetabular and inferior acetabular osteophytes. Moderate- sized joint effusion. Very stiff hip. Fluids 500 cc. Specimens Right femoral head sent for pathology. Drains None. Complications none Disposition Accompanied Patient To Recovery: No Disposition: Recovery Room Indications Patient is a 69-year-old female now about a year out from a left knee replacement. She developed increased pain discomfort in both hips over the years. The right hip was bothering more than the left. X-rays showed concentric advanced hip arthritis with second osteophytes. She had very stiff hips. She elected proceed with right total hip arthroplasty. She failed all conservative measures. Description of Procedure Operative implants consist of: 1. Biomet G7 size 52 mm acetabular shell. 2. 6.5 cancellus acetabular screws 1 of 35 mm in length 1 of 20 mm length. 3. Vaughn hole eliminator. 4. Highly cross-linked polyethylene liner with a 52 mm outer diameter and 36 mm inner diameter. 5. Triplett Corial size 11 KLA femoral stem. 6. Left 1.5/36 mm ceramic articular ball. Patient was taken to the operating room identified and placed on the operating table supine position protectors were properly padded. IV antibiotics were tried by the anesthesia team. A general anesthetic was implemented due to her history of multiple sclerosis. Ramsey catheter was placed in sterile fashion. We did have to wait 20 minutes after intubation before we proceeded. The patient was then placed in the left lateral decubitus position. An axillary roll was placed. A Stulberg hip positioner was used for positioning. The right hip and leg were then prepped and draped in usual sterile fashion. A posterior lateral approach to the right hip was then performed to a curvilinear incision centered over the greater trochanter. Sharp lysis got through subcutaneous tissue down to the IT band gluteal fascia. She did have a fairly thick soft tissue envelope. The IT band gluteal fascia incised longitudinally in line with skin incision. The underlying greater truck bursa was excised. The piriformis and external rotators were tagged and taken off the posterior aspect hip joint capsule. Great care was taken throughout the procedure protect the sciatic nerve at all times. Posterior capsulotomy was then performed leaving a flap for later repair. Hip was internally rotated and dislocated. Femoral neck osteotomy cut was made with Final Cut about 10 mm above the lesser trochanter. Femoral head was removed and sent for pathology. The femur was retracted anteriorly. Attention drawn the acetabulum. The acetabular labrum was excised. Pulmonary fat was excised. Sequential reaming the acetabular was then performed again with size 45 and progressing up to 51. We did reamed a little bit with a 52 reamer. A 52 mm Biomet G7 acetabular shell was then placed in about 40 degrees of lateral opening and 20 degrees of anteversion. It was fixed with two 6.5 cancellus acetabular screws. I did take a large anterior and and and inferior osteophyte off. Trial liner was placed. Attention drawn the femur. The proximal femur was entered with a cookie-cutter followed by canal finder. I then broached begin the size 8 and progressing up to 11. Got excellent fit 11. We then trialed the hip. The hip was a bit tight with a standard stem and I felt like I lengthen her leg slightly. Therefore used a KLA implant. We downsized the neck. The hip was fully stable in full extension and external rotation flexion to 9 degrees and internal rotation to over 50 degrees. Her hip was extremely stable. It was still just a little bit tight and I thought maybe just a little bit long but I felt this was optimal for this patient. She also has hip arthritis and the other side which currently need fixed and she was naturally short on this other side due to her arthritis. We elect to place these implants. All trial implants were removed. An apex eliminator was placed but highly cross-linked polyethylene liner was placed. A size 11 KLA femoral stem was impacted in position. +1.5/36 mm ceramic articular ball was placed. Hip was located once again found to be stable. Attention drawn toward closing. Nupathe wounds irrigated cups ounce pulsatile lavage solution. I did inject locally with 60 cc of half percent Marcaine with epinephrine. The posterior capsule and external rotators were then repaired through drill holes in the posterior trochanter with #2 Tycron suture. The IT band gluteal fascia then closed in 1 PDS suture in running fashion. Subcutaneous tissue was then closed with 2 layers the deep layer #2 Vicryl suture and subcutaneous tissue with 2-0 Dexon suture in a buried interrupted fashion. Skin was closed skin jesenia. We did place a Nataliya VAC wound dressing due to her thick soft tissue envelope. Patient was then placed on the transport cart, brought out of general anesthesia and transferred to the recovery room in stable condition. Patient tolerated procedure well and there were no complications. I attest to the content of the Intraoperative Record and any orders documented therein. Any exceptions are noted below.
[2019-10-29] MEDS: fentaNYL citrate 100 MCG/2 ML VIAL IV PRN ×2 (09:54→09:59)
--- NOTE | 2019-10-29 10:03 | XRay Report ---
XR hip 1V RT w pelvis CLINICAL HISTORY: IN PACU - A/P PELVIS and LATERAL HIP COMPARISON: 07/28/2016 DISCUSSION: Anatomic alignment post total right hip arthroplasty. Good contact between prosthetic and underlying bone. Expected postoperative soft tissue change IMPRESSION: Anatomic alignment post total right hip arthroplasty. ACT 112: Negative or not required by law. The above report was generated using voice recognition software. It may contain grammatical, syntax or spelling errors. Electronically signed by: Adrian Vega M.D. 10/29/2019 10:02 AM
[2019-10-29] MEDS: HYDROmorphone INJ 1 MG/ML SYRINGE IV PRN ×2 (10:04→10:13)
--- NOTE | 2019-10-29 10:22 | Anesthesiology Progress Note ---
Date of Service October 29, 2019 Anesthesia Post Procedure Vital Signs Vital Signs: Temp Pulse Pulse Resp BP Pulse Ox 10/29/19 10:15 98 H 14 149/78 H 98 10/29/19 10:05 93 H 15 143/78 H 98 10/29/19 09:55 83 17 139/93 100 10/29/19 09:45 81 15 107/64 100 10/29/19 09:38 36.3 C L 78 13 132/66 100 10/29/19 05:43 36.8 C 70 16 132/67 96 Pain Intensity Right Hip: Pain Intensity: 5 Transfer of Care Handoff Completed per policy Notes Mental Status: alert / awake / arousable and participated in evaluation Patient Amnestic to Procedure: Yes Nausea / Vomiting: adequately controlled Pain: adequately controlled Airway Patency, RR, SpO2: stable & adequate BP & HR: stable & adequate Hydration State: stable & adequate Anesthetic Complications: no major complications apparent and Pt Satisfied with anesthetic care
[2019-10-29] MEDS ORDERED: bisacodyL 10 MG SUPP PR PRN (10:44)
[2019-10-29] MEDS ORDERED: MAGNESIUM HYDROXIDE SUSP 30 ML UDC PO PRN (10:44)
[2019-10-29] MEDS ORDERED: NALOXONE HCL 0.4 MG/1 ML VIAL/CARP IV PRN (10:44)
[2019-10-29] MEDS ORDERED: METOCLOPRAMIDE HCL INJ 5 MG/ML 2 ML VIAL IV PRN (10:44)
[2019-10-29] MEDS ORDERED: DICYCLOMINE HCL 10 MG CAP PO PRN (10:44)
[2019-10-29] MEDS ORDERED: HYDROmorphone INJ 0.5 MG/0.5 ML SYR IV PRN (10:44)
[2019-10-29] MEDS ORDERED: ALUMINUM/MAGNESIUM SUSP 30 ML UDC PO PRN (10:44)
[2019-10-29] MEDS ORDERED: MECLIZINE HCL 25 MG TAB PO PRN (11:19)
[2019-10-29] MEDS: SODIUM CHLORIDE 0.9% 1000ML 1,000 ML IV SCH ×2 (11:55→21:34)
[2019-10-29] MEDS: KETOROLAC TROMETHAMINE 15 MG/ML VIAL IV SCH ×3 (11:57→23:26)
[2019-10-29] MEDS: ACETAMINOPHEN 500 MG TAB PO SCH ×2 (13:43→21:34)
[2019-10-29] MEDS: CEFAZOLIN 2000MG 2,000 MG/15 ML SYR IV SCH ×2 (15:38→23:26)
[2019-10-29] MEDS: FERROUS GLUCONATE 324 MG TAB PO SCH (17:36)
[2019-10-29] MEDS: ASCORBIC ACID 500 MG TAB PO SCH (17:36)
[2019-10-29] MEDS: METHYLCELLULOSE POWDER 454 GM JAR PO SCH (19:50)
[2019-10-29] MEDS: ASPIRIN 81 MG ECTAB PO SCH (20:23)
[2019-10-29] MEDS: PANTOprazole 40 MG TAB PO SCH (20:23)
[2019-10-29] MEDS: ESCITALOPRAM OXALATE 20 MG TAB PO SCH (20:23)
[2019-10-29] MEDS: GABAPENTIN 600 MG TAB PO SCH (20:23)
[2019-10-29] MEDS: BuPROPion SR 100 MG TABCR PO SCH (20:23)
[2019-10-29] MEDS: SENNA 8.6 MG TAB PO SCH (20:23)
[2019-10-29] MEDS: DOCUSATE SODIUM 100 MG CAP PO SCH (20:24)
[2019-10-29] MEDS: CHOLECALCIFEROL 1,000 UNITS 25 MCG TAB PO SCH (20:24)
[2019-10-29] MEDS ORDERED: NON-FORMULARY MEDICATION (Calcium-Vitamin D3-Vitamin K [Viactiv] 1 TAB) PO SCH (21:00)
[2019-10-29] MEDS ORDERED: NON-FORMULARY MEDICATION (Docusate Sodium [Stool Softener] 100 MG) PO SCH (21:00)
[2019-10-29] MEDS: MELATONIN 3 MG TAB PO SCH (22:28)
[2019-10-30] MEDS: OXYCODONE HCL IR 5 MG TAB (IMMEDIATE RELEASE) PO PRN ×2 (02:18→09:30)
[2019-10-30] MEDS: KETOROLAC TROMETHAMINE 15 MG/ML VIAL IV SCH ×4 (05:14→18:30)
[2019-10-30] MEDS: ACETAMINOPHEN 500 MG TAB PO SCH ×3 (05:15→21:43)
[2019-10-30 06:33] LABS: Basophils # (auto) 0.01 K/uL (0-0.2); Basophils % (auto) 0.1 %; Eosinophils # (auto) 0.03 K/uL (0-0.5); Eosinophils % (auto) 0.4 %; Hemoglobin 9.8 g/dL (12.0-16.0); Lymphocytes # (auto) 1.46 K/uL (1.2-3.4); Lymphocytes % (auto) 20.7 %; Mean Corpuscular Hemoglobin 30.3 pg (25-34); Mean Corpuscular Hgb Conc 31.6 g/dL (32-36); Mean Platelet Volume 9.5 fL (7.4-10.4); Monocytes # (auto) 0.73 K/uL (0.11-0.59); Monocytes % (auto) 10.4 %; Neutrophils # (auto) 4.82 K/uL (1.4-6.5); Neutrophils % (auto) 68.4 %; Platelet Count 146 K/uL (130-400); RDW Coefficient of Variation 12.7 % (11.5-14.5); RDW Standard Deviation 43.9 fL (36.4-46.3); Red Blood Count 3.23 M/uL (4.2-5.4); White Blood Count 7.05 K/uL (4.8-10.8)
[2019-10-30 07:08] LABS: BUN Creatinine Ratio 12.6 (10-20); Calcium 8.3 mg/dl (8.5-10.1); Creatinine Clr Calc Pharmacy 49.2 ml/min; Est GFR (African American) 55.4; Est GFR (Non-African American) 47.8; Potassium 3.9 mmol/L (3.5-5.1)
--- NOTE | 2019-10-30 07:37 | Anesthesiology Progress Note ---
Date of Service October 30, 2019 Anesthesia Post Procedure Vital Signs Vital Signs: Temp Pulse Pulse Pulse Resp BP Pulse Ox 10/30/19 02:39 36.5 C 71 16 130/70 97 10/29/19 22:55 36.5 C 69 16 131/73 95 10/29/19 20:16 36.9 C 77 18 118/65 96 10/29/19 15:32 36.4 C L 95 H 18 120/71 97 10/29/19 13:40 36.2 C L 84 16 129/70 100 10/29/19 12:40 86 18 124/70 100 10/29/19 11:40 83 16 124/71 100 10/29/19 11:11 79 16 134/73 100 10/29/19 10:40 36.6 C 97 H 16 149/75 H 99 10/29/19 10:25 36.7 C 97 H 15 145/72 H 98 10/29/19 10:15 98 H 14 149/78 H 98 10/29/19 10:05 93 H 15 143/78 H 98 10/29/19 09:55 83 17 139/93 100 10/29/19 09:45 81 15 107/64 100 10/29/19 09:38 36.3 C L 78 13 132/66 100 Pain Intensity Right Hip: Pain Intensity: 5 Transfer of Care Handoff Completed per policy Notes Mental Status: alert / awake / arousable Nausea / Vomiting: adequately controlled Pain: adequately controlled Airway Patency, RR, SpO2: stable & adequate BP & HR: stable & adequate Hydration State: stable & adequate Anesthetic Complications: no major complications apparent and Pt Satisfied with anesthetic care
--- NOTE | 2019-10-30 08:48 | Progress Notes ---
DATE: 10/30/2019 SUBJECTIVE: A 69-year-old white female postop day 1 from right hip replacement. She is doing pretty well. Had an episode of groin pain in the middle of the night, but resolved this morning. No chest pain or shortness of breath. Not feeling dizzy or lightheaded. OBJECTIVE: VITAL SIGNS: Temperature 36.5. Vital signs stable. GENERAL: Physical examination shows a pleasant, middle-aged female. She is lying in bed, looks pretty comfortable. LUNGS: Clear to auscultation. HEART: Has regular rate and rhythm. ABDOMEN: Soft, nontender, nondistended. EXTREMITIES: Grossly neurovascularly intact except as follows. Examination of the right hip and leg reveals the dressing to be clean, dry and intact. Thigh is soft and supple. Leg lengths are equal. Hip is located. She is neurologically intact. She can dorsiflex and plantarflex her foot appropriately. LABORATORY DATA: Hemoglobin 9.8. Hematocrit 31.0. Electrolytes are stable. ASSESSMENT: A 69-year-old white female postop day 1 from a right hip replacement, doing pretty well. The pain is now controlled. Hip is located. She is neurologically intact. She is mildly anemic, but asymptomatic. PLAN: 1. DVT prophylaxis include thigh-high TEDs, SCDs, and aspirin twice a day. 2. PT/OT, weightbear as tolerated. Right total hip protocol. 3. Pain control, doing okay with current pain regimen. 4. Anemia. She is asymptomatic. We will continue iron supplementation. 5. Disposition: She is planning to be discharged to home with some home health once adequately recovered and medically stable.
[2019-10-30] MEDS ORDERED: NON-FORMULARY MEDICATION (Multivitamin 1 CAP) PO SCH (09:00)
[2019-10-30] MEDS: FERROUS GLUCONATE 324 MG TAB PO SCH ×2 (09:38→17:24)
[2019-10-30] MEDS: ASPIRIN 81 MG ECTAB PO SCH ×2 (09:39→20:34)
[2019-10-30] MEDS: MULTIVITAMIN TAB PO SCH (09:39)
[2019-10-30] MEDS: ASCORBIC ACID 500 MG TAB PO SCH ×2 (09:39→17:24)
[2019-10-30] MEDS: DOCUSATE SODIUM 100 MG CAP PO SCH ×2 (09:39→20:34)
[2019-10-30] MEDS: GABAPENTIN 300 MG CAP PO SCH (09:40)
[2019-10-30] MEDS: OMEGA-3 (PURIFIED FISH OIL) 1 GM CAP PO SCH (09:40)
[2019-10-30] MEDS: CHOLECALCIFEROL 1,000 UNITS 25 MCG TAB PO SCH ×2 (09:40→20:34)
[2019-10-30] MEDS: TAMOXIFEN CITRATE 10 MG TABLET PO SCH (09:40)
[2019-10-30] MEDS: BuPROPion SR 100 MG TABCR PO SCH ×2 (09:41→20:34)
[2019-10-30] MEDS: PANTOprazole 40 MG TAB PO SCH ×2 (09:41→20:34)
[2019-10-30] MEDS: ESCITALOPRAM OXALATE 20 MG TAB PO SCH (20:34)
[2019-10-30] MEDS: SENNA 8.6 MG TAB PO SCH (20:34)
[2019-10-30] MEDS: GABAPENTIN 600 MG TAB PO SCH (20:34)
[2019-10-30] MEDS: METHYLCELLULOSE POWDER 454 GM JAR PO SCH (21:43)
[2019-10-30] MEDS: MELATONIN 3 MG TAB PO SCH (22:33)
[2019-10-31] MEDS: KETOROLAC TROMETHAMINE 15 MG/ML VIAL IV SCH ×2 (00:32→06:15)
[2019-10-31] MEDS: ACETAMINOPHEN 500 MG TAB PO SCH ×2 (06:13→14:08)
[2019-10-31] MEDS: FERROUS GLUCONATE 324 MG TAB PO SCH (08:46)
[2019-10-31] MEDS: ASPIRIN 81 MG ECTAB PO SCH (08:47)
[2019-10-31] MEDS: ASCORBIC ACID 500 MG TAB PO SCH (08:47)
[2019-10-31] MEDS: MULTIVITAMIN TAB PO SCH (08:47)
[2019-10-31] MEDS: DOCUSATE SODIUM 100 MG CAP PO SCH (08:47)
[2019-10-31] MEDS: GABAPENTIN 300 MG CAP PO SCH (08:48)
[2019-10-31] MEDS: PANTOprazole 40 MG TAB PO SCH (08:48)
[2019-10-31] MEDS: OMEGA-3 (PURIFIED FISH OIL) 1 GM CAP PO SCH (08:48)
[2019-10-31] MEDS: BuPROPion SR 100 MG TABCR PO SCH (08:49)
[2019-10-31] MEDS: CHOLECALCIFEROL 1,000 UNITS 25 MCG TAB PO SCH (08:49)
[2019-10-31] MEDS: TAMOXIFEN CITRATE 10 MG TABLET PO SCH (08:49)
--- NOTE | 2019-10-31 09:11 | Progress Notes ---
DATE: 10/31/2019 SUBJECTIVE: A 69-year-old white female postop day 2 from right hip replacement. She is doing pretty well. Had a good night sleeping. No chest pain or shortness of breath. Not feeling dizzy or lightheaded. OBJECTIVE: VITAL SIGNS: Temperature 36.8. Vital signs stable. GENERAL: Physical examination shows a pleasant, middle-aged female. I did wake her this morning. EXTREMITIES: Examination of the right hip reveals the wound VAC to be in place. Her thigh is soft and supple. Leg lengths are equal. Hip is located. She is neurologically intact. ASSESSMENT: A 69-year-old white female postop day 2 from a right hip replacement, doing pretty well. Pain is controlled. Hip is located. She is neurologically intact. PLAN: 1. DVT prophylaxis include thigh-high TEDs, SCDs, and aspirin twice a day. 2. PT/OT, weightbear as tolerated. Right total hip protocol. 3. Pain control, doing well with current pain regimen. 4. Wound care. She has got a Prevena wound VAC on for total of 7 days. Home health will follow this. 5. Disposition: Plan to discharge to home with some home health later today.
--- NOTE | 2019-11-09 10:07 | Discharge Summary ---
Date of Service November 09, 2019 Admission HPI Per Admitting Provider Documented in the H & P Admission Exam (Per Admitting) Constitutional Documented in the H & P Discharge Data Consultations 10/30/19 08:00 Consult Case Management - Discharge Planning Routine Procedures Performed Operation Date: 10/29/19 07:15 Actual Procedures p Right Total Hip Arthroplasty, uncemented(Right) - Frederic Soto MD Hospital Course (1) Status post total hip replacement, right: 69 y/o female admitted on 10/29/19 and underwent right total hip replacement. She tolerated the procedure well. No complications. She was transferred to the PACU post op and later to the orthopedic floor for further care. She was given ancef for antibiotic prophylaxis. She was given Teds, SCDs, and aspirin for DVT prophylaxis. Hemoglobin, hematocrit, and vital signs were monitored during her hospital stay and remained stable. She did have some anemia and was given iron supplement. She did not require any blood transfusions. There were no complications during her hospital stay. By post op day #2 she was tolerating a regular diet, pain was controlled, and she was participating in physical therapy. She was given printed discharge instructions including new prescriptions for tylenol, aspirin, iron supplement, and oxycodone. Continue physical therapy, weight bearing as tolerated. Continue TEDs. Follow approx 2 weeks post op or sooner if there are problems or concerns. Coding Level of Care Code None Diagnoses Status post total hip replacement, right Z96.641
== END 2019-10-31 14:32 | disposition home health service (06) | DRG 470 ==
LOC: ASU 05:25 → 3E 09:35

== ENCOUNTER 2021-07-29 19:20 | Observation (INO) ==
[2021-07-29] MEDS ORDERED: ONDANSETRON INJ 2 MG/ML 2 ML VIAL IV STA ×2 (20:21→21:50)
[2021-07-29] MEDS ORDERED: MoRPHine SULFATE 4 MG/ML 1 ML CARP\\VIAL IV STA (20:21)
[2021-07-29] MEDS ORDERED: GI COCKTAIL ED USE PO ONE (20:23)
[2021-07-29] MEDS ORDERED: FAMOTIDINE 20MG IV PUSH 20 MG/5 ML SYR IV STA (20:23)
[2021-07-29] MEDS ORDERED: SODIUM CHLORIDE 0.9% 1000ML 1,000 ML IV ONE (20:24)
[2021-07-29 20:27] LABS: Basophils # (auto) 0.01 K/uL (0-0.2); Basophils % (auto) 0.2 %; Eosinophils # (auto) 0.08 K/uL (0-0.5); Eosinophils % (auto) 1.6 %; Hematocrit (blood only) 43.1 % (37-47); Hemoglobin 14.9 g/dL (12.0-16.0); Lymphocytes # (auto) 1.51 K/uL (1.2-3.4); Lymphocytes % (auto) 29.6 %; Mean Corpuscular Hemoglobin 32.3 pg (25-34); Mean Corpuscular Hgb Conc 34.6 g/dL (32-36); Mean Corpuscular Volume 93.5 fL (80-100); Mean Platelet Volume 10.1 fL (7.4-10.4); Monocytes # (auto) 0.43 K/uL (0.11-0.59); Monocytes % (auto) 8.4 %; Neutrophils # (auto) 3.07 K/uL (1.4-6.5); Neutrophils % (auto) 60.2 %; Platelet Count 180 K/uL (130-400); RDW Coefficient of Variation 12.4 % (11.5-14.5); RDW Standard Deviation 42.1 fL (36.4-46.3); Red Blood Count 4.61 M/uL (4.2-5.4)
--- NOTE | 2021-07-29 20:56 | Emergency Department Note ---
Impression & Plan Abdominal pain, epigastric, Gastritis, Nausea & vomiting ED Provider Note Provider: Tanvir Gilbert MD DATE OF SERVICE: 07/29/2021 CHIEF COMPLAINT: Abdominal pain, nausea HISTORY OF PRESENT ILLNESS: Patient is a 70-year-old female history of hiatal hernia, prior cholecystectomy, CKD, and MS presenting here today with reporting onset of some GI disturbance yesterday evening. Had a normal lunch yesterday. Julio had some diarrhea. 2 AM this past night with significant upper abdominal discomfort with associated nausea. Some minimal amount of vomiting is reported over the course of the day. Consistent pain. One episode of diarrhea this morning but none since. Very limited intake other than sips of water today. Tried to Mylanta and Pepto with minimal improvement of some b urning in epigastric discomfort earlier. No other sick contacts reported. Ports a negative home Covid test. Patient denies any chest pain or shortness of breath. No lower abdominal pain reported. Minimal radiation of the pain to the back. REVIEW OF SYSTEMS: A total of 10 review of systems was obtained and negative except as stated above in the HPI. PAST MEDICAL HISTORY: As noted above MEDICATIONS: Reviewed home medication list SOCIAL HISTORY: Lives at home with PHYSICAL EXAM: GENERAL: alert and oriented in no acute distress on stretcher Head: normocephalic and atraumatic EYES: No injection, discharge or icterus. NECK: Trachea midline. ENT: Mucous membranes pink and moist. LUNGS: Airway patent. No retractions. Breath sounds clear HEART: Regular rate and rhythm. No chest wall tenderness ABDOMEN: Soft minimal bilateral upper and epigastric tenderness. No guarding. No lower abdominal tenderness.. SKIN: Acyanotic, warm, dry, without rashes EXTREMITIES: Without swelling, tenderness or deformity NEUROLOGICAL: No focal deficits. No aphasia. No facial droop or slurred speech. EK bpm sinus rhythm with frequent PVCs. No acute ST segment elevation or depression noted. QTc 482. Normal axis. CONTINUOUS CARDIAC MONITORING: was ordered and showed a heart rate of 70s bpm in normal sinus rhythm frequent PVCs and some episodes of bigeminy. Patient's laboratory studies and imaging reviewed. Differential includes Appendicitis, ovarian cyst, ovarian torsion, ectopic , TOA, PID, infections, diverticulitis, UTI, obstruction, mesenteric ischemia, aortic pathology, inflammatory bowel disease, renal colic, PUD, pancreatitis, biliary pathology, hernia, volvulus, constipation, as well as other pathologies. IMPRESSION/MEDICAL DECISION MAKING: Prior cholecystectomy. No lower abdominal tenderness. EKG and troponin were sent to exclude cardiac etiology. Given some Pepcid, Zofran, morphine, and IV fluid. Question of this could be gastroenteritis. Could have some component of gastritis. CT scan of the abdomen pelvis given her age was obtained. Lower suspicion at this time given the associated symptoms this represents AAA. No abdominal masses appreciated. Is reassuring without anemia or leukocytosis. No evidence of hepatitis or pancreatitis based on labs. No evidence of significant renal dysfunction or troponin elevation. In report per radiology questions may be low gastritis but no other significant findings. Patient on reevaluation states her pain is much better but still having some nausea particular when she turns her head. Is an ongoing issue some chronic dizziness and vestibular neuritis although again symptoms seem to be much worse according to her and her . Denies any significant headache or focal numbness or weakness. Given some meclizine which she uses at home as well as her migraine to see if this wo uld help. Minimal improvement. Again lower suspicion for acute intracranial abnormality given lack of significant pain, trauma, or focal neurological deficit. Covid test was ordered here. Given some additional IV fluid. Question if this may be more of a viral gastroenteritis situation with some overlying gastritis. Given additional IV PPI. Given her continued symptoms discussed with her further observation here. She is not tolerating oral intake. DIAGNOSIS: Gastritis, nausea and vomiting, epigastric abdominal pain DISPOSITION: Hospitalist will evaluate Patient was agreeable with this plan. Past Med/Surg History Medical History Anxiety Breast cancer (~02/2013) Cancer of central portion of left female breast Carcinoma of upper-outer quadrant of left female breast (02/25/13) Cholelithiasis Chronic leukopenia CKD (chronic kidney disease) stage 3, GFR 30-59 ml/min Depression GERD (gastroesophageal reflux disease) Heart murmur Hiatal hernia History of breast cancer History of neuropathy Multiple sclerosis Osteoarthritis Temporomandibular joint disorder Urinary incontinence Vertigo Surgical History History of adenoidectomy History of breast lump removal History of cataract extraction with lens replacement History of colonoscopy History of dental surgery History of dilatation and curettage History of esophagogastroduodenoscopy (EGD) History of left knee replacement History of tonsillectomy History of vascular access device Hx laparoscopic cholecystectomy (02/03/19) Status post right hip replacement Family History Aunt Family history of diabetes mellitus Grandfather (Maternal) Family history of melanoma Colorectal cancer Grandmother (Maternal) Hypertension Cancer Mother Dementia Father Alcoholism Macular degeneration Rheumatoid arthritis Other Diabetes Heart disease Thyroid disorder Denies family history of Ovarian cancer Prostate cancer Myocardial infarction Breast cancer Lung cancer Uterine cancer Stroke Social History Smoking Status: Never smoker Second Hand Exposure: Yes ( A CHILD); Hx Alcohol Use: Yes Alcohol type: wine Alcohol Intake Frequency: 4 or More x per/Week Hx Substance Use: No Preferred Language: Syriac Communication Ability: Effective Visual Impairment: No Limitations Hearing Ability: Normal Student Accounts Manager Required: No Beliefs That Will Affect Care: None marital status: Current Living Situation: Spouse current occupational status: retired Feels Safe at Home: Yes Childhood Exposure to Second-Hand Smoke: No caffeine: Yes during the past year weight has: remained stable Dental Care, Regularly: Yes Physical Activity Frequency: Daily Seatbelt Use: always Sunscreen Use: Yes Assistive Devices: Cane and Glasses Allergies Allergies Allergy/AdvReac Type Severity Reaction Status Date / Time adhesive Allergy Unknown skin Verified 06/29/21 12:25 tears, skin blisters tetracycline Allergy Unknown rash Verified 06/29/21 12:25 clonazepam AdvReac Unknown Depression Verified 06/29/21 12:25 erythromycin base AdvReac Unknown GI SYMPTOMS Verified 06/29/21 12:25 zolpidem AdvReac Unknown sleep Verified 06/29/21 12:25 eating episodes Home Meds Home Medications Medication Instructions Recorded Confirmed docusate sodium 50 mg capsule 100 mg PO HS 07/29/18 06/29/21 (Stool Softener) multivitamin 1 cap PO QAM 07/29/18 06/29/21 omega 0-fiu-mka-fish oil 1,000 mg 1 cap PO QPM 07/29/18 06/29/21 (120 mg-180 mg) capsule (Fish Oil) tamoxifen 20 mg tablet 20 mg PO QAM 07/29/18 06/29/21 calcium 650 mg-vitamin D3 12.5 1 tab PO BID 06/24/19 06/29/21 mcg-vitamin K 40 mcg chewable tablet (Viactiv) methylcellulose (with sugar) oral 2 tsp PO HS 06/24/19 06/29/21 powder (Citrucel (sucrose)) omeprazole 20 mg capsule,delayed 20 mg PO QAM cap 03/11/20 06/29/21 release ferrous sulfate 325 mg (65 mg 325 mg PO QAM 09/23/20 06/29/21 iron) tablet prednisone 10 mg tablet 10 mg PO DAILY PRN 03/07/21 06/29/21 cholecalciferol (vitamin D3) 50 10,000 unit PO DAILY cap 04/08/21 06/29/21 mcg (2,000 unit) capsule (Vitamin D3) diphenhydramine 25 1 tab PO Q6H PRN 06/29/21 06/29/21 mg-acetaminophen 500 mg tablet (Tylenol PM Extra Strength) Previous Rx's Medication Instructions Recorded bupropion HCl 200 mg tablet,12 hr 200 mg PO BID 30 Days #180 ea 11/08/20 sustained-release escitalopram oxalate 20 mg tablet 20 mg PO HS 90 Days #90 tab 01/20/21 meclizine 25 mg tablet 12.5 mg PO HS #90 tab 04/08/21 gabapentin 300 mg capsule 300 mg PO TID 90 Days #270 cap 04/12/21 Results & Data (ED) Vital Signs Vital Signs - 24 hr 07/29/21 19:22 07/29/21 20:15 07/29/21 22:00 Temperature 36.6 C 37.1 C 36.9 C Temperature Source Temporal Artery Scan Oral Oral Pulse Rate 65 69 Pulse Rate [Apical] 69 71 Pulse Rhythm Regular Pulse Rhythm [Apical] Regular Regular Pulse Strength [Apical] Normal Normal Respiratory Rate 18 18 18 Respiratory Effort / Characteristics Non-Labored Spontaneous Non-Labored Spontaneous Non-Labored Spontaneous Respiratory Depth Normal Normal Normal Respiratory Pattern Regular Regular Regular Blood Pressure 156/95 H Blood Pressure [Right Arm] 170/81 H 153/82 H Blood Pressure Mean 115 Blood Pressure Mean [Right Arm] 110 105 Blood Pressure Position Sitting Blood Pressure Position [Right Arm] Lying Lying Pulse Oximetry 95 98 94 Oxygen Delivery Method Room Air Room Air Room Air Sepsis Recent Fever Within 48 Hours No Sepsis New/Unexplained Change in Mental Status No Sepsis Action Taken by Nursing No Action Required Laboratory Data Result diagrams: 07/29/21 20:16 07/29/21 20:16 Lab Results 07/29/21 07/29/21 07/29/21 Range/Units 20:16 20:16 20:16 WBC 5.10 (4.8-10.8) K/uL RBC 4.61 (4.2-5.4) M/uL Hgb 14.9 (12.0-16.0) g/dL Hct 43.1 (37-47) % MCV 93.5 (80-100) fL MCH 32.3 (25-34) pg MCHC 34.6 (32-36) g/dL RDW Std Deviation 42.1 (36.4-46.3) fL RDW Coeff of Phani 12.4 (11.5-14.5) % Plt Count 180 (130-400) K/uL MPV 10.1 (7.4-10.4) fL Immature Gran % (Auto) 0.0 % Neut % (Auto) 60.2 % Lymph % (Auto) 29.6 % Bulloch % (Auto) 8.4 % Eos % (Auto) 1.6 % Baso % (Auto) 0.2 % Neut # (Auto) 3.07 (1.4-6.5) K/uL Lymph # (Auto) 1.51 (1.2-3.4) K/uL Bulloch # (Auto) 0.43 (0.11-0.59) K/uL Eos # (Auto) 0.08 (0-0.5) K/uL Baso # (Auto) 0.01 (0-0.2) K/uL Immature Gran # (Auto) 0.00 (0.00-0.02) K/uL Sodium 137 (136-145) mmol/L Potassium 3.9 (3.5-5.1) mmol/L Chloride 104 (98-107) mmol/L Carbon Dioxide 26 (21-32) mmol/L Anion Gap 7 (3-11) BUN 15 (6-23) mg/dl Creatinine 0.98 (0.6-1.2) mg/dl Est Cr Clr Drug Dosing Not Reportable Est GFR ( Amer) 66.8 ml/min Est GFR (Non-Af Amer) 57.6 ml/min BUN/Creatinine Ratio 15.3 (10-20) Glucose 125 H (70-99(Fasting)) mg/dl Calcium 9.1 (8.5-10.1) mg/dl Total Bilirubin 0.7 (0.2-1.0) mg/dl AST 22 (13-39) U/L ALT 29 (7-52) U/L Alkaline Phosphatase 54 (34-104) U/L Troponin I < 0.03 (0-0.04) ng/ml Total Protein 7.2 (6.0-8.3) gm/dl Albumin 4.4 (3.4-5.0) gm/dl Globulin 2.8 (2.5-4.0) gm/dl Albumin/Globulin Ratio 1.6 (0.9-2) Lipase 29 (11-82) U/L Urine Color Urine Appearance (Clear) Urine pH (4.5-7.5) Ur Specific [employer] (1.000-1.030) Urine Protein (Negative) Urine Glucose (UA) (Negative) Urine Ketones (Negative) Urine Blood (Negative) Urine Nitrite (Negative) Urine Bilirubin (Negative) Urine Urobilinogen (Negative) Ur Leukocyte Esterase (Negative) Urine WBC (Auto) (0-5) /hpf Urine RBC (Auto) (0-4) /hpf U Hyaline Cast (Auto) (0-5) /lpf U Epithel Cells (Auto) (0-5) /lpf Urine Bacteria (Auto) (Negative) 07/29/21 Range/Units 21:20 WBC (4.8-10.8) K/uL RBC (4.2-5.4) M/uL Hgb (12.0-16.0) g/dL Hct (37-47) % MCV (80-100) fL MCH (25-34) pg MCHC (32-36) g/dL RDW Std Deviation (36.4-46.3) fL RDW Coeff of Phani (11.5-14.5) % Plt Count (130-400) K/uL MPV (7.4-10.4) fL Immature Gran % (Auto) % Neut % (Auto) % Lymph % (Auto) % Bull[place] % (Auto) % Eos % (Auto) % Baso % (Auto) % Neut # (Auto) (1.4-6.5) K/uL Lymph # (Auto) (1.2-3.4) K/uL [place] # (Auto) (0.11-0.59) K/uL Eos # (Auto) (0-0.5) K/uL Baso # (Auto) (0-0.2) K/uL Immature Gran # (Auto) (0.00-0.02) K/uL Sodium (136-145) mmol/L Potassium (3.5-5.1) mmol/L Chloride (98-107) mmol/L Carbon Dioxide (21-32) mmol/L Anion Gap (3-11) BUN (6-23) mg/dl Creatinine (0.6-1.2) mg/dl Est Cr Clr Drug Dosing Est GFR ( Amer) ml/min Est GFR (Non-Af Amer) ml/min BUN/Creatinine Ratio (10-20) Glucose (70-99(Fasting)) mg/dl Calcium (8.5-10.1) mg/dl Total Bilirubin (0.2-1.0) mg/dl AST (13-39) U/L ALT (7-52) U/L Alkaline Phosphatase (34-104) U/L Troponin I (0-0.04) ng/ml Total Protein (6.0-8.3) gm/dl Albumin (3.4-5.0) gm/dl Globulin (2.5-4.0) gm/dl Albumin/Globulin Ratio (0.9-2) Lipase (11-82) U/L Urine Color Yellow Urine Appearance Cloudy A (Clear) Urine pH 8.5 H (4.5-7.5) Ur Specific [employer] 1.015 (1.000-1.030) Urine Protein Negative (Negative) Urine Glucose (UA) Negative (Negative) Urine Ketones Negative (Negative) Urine Blood Negative (Negative) Urine Nitrite Negative (Negative) Urine Bilirubin Negative (Negative) Urine Urobilinogen Negative (Negative) Ur Leukocyte Esterase Negative (Negative) Urine WBC (Auto) 1-5 (0-5) /hpf Urine RBC (Auto) 0-4 (0-4) /hpf U Hyaline Cast (Auto) 0 (0-5) /lpf U Epithel Cells (Auto) 5-10 H (0-5) /lpf Urine Bacteria (Auto) Negative (Negative) Administered Medications Discontinued Medications Al Hydrox/Mg Hydrox/Simethicone (Gi Cocktail Ed Use) 1 dose PO ONE ONE Stop: 07/29/21 20:24 Last Admin: 07/29/21 20:54 Dose: 1 dose Documented by: [id number] Famotidine (Pepcid 20mg Iv Push) 20 mg in 5 mls @ 2.5 mls/min IV NOW STA Stop: 07/29/21 20:24 Last Admin: 07/29/21 20:54 Dose: 2.5 mls/min Documented by: [id number] Sodium Chloride (Nss 1000ml) 1,000 mls @ 999 mls/hr IV .Q1H1M ONE Stop: 07/29/21 21:24 Last Infusion: 07/29/21 22:11 Dose: 0 mls/hr Documented by: [id number] Admin: 07/29/21 20:54 Dose: 999 mls/hr Documented by: [id number] Sodium Chloride (Nss) 500 mls @ 999 mls/hr IV .Q31M ONE Stop: 07/29/21 23:16 Last Infusion: 07/29/21 23:51 Dose: 0 mls/hr Documented by: [id number] Admin: 07/29/21 22:57 Dose: 999 mls/hr Documented by: [id number] Ioversol (Optiray 320 100ml) 94 ml IV ONCE ONE Stop: 07/29/21 22:11 Last Admin: 07/29/21 22:10 Dose: 94 ml Documented by: [id number] Meclizine HCl (Meclizine Hcl 25 Mg Tab) 25 mg PO NOW STA Stop: 07/29/21 22:44 Last Admin: 07/29/21 22:57 Dose: 25 mg Documented by: [id number] Metoclopramide HCl (Metoclopramide Hcl Inj 5 Mg/Ml 2 Ml Vial) 5 mg IV ONE ONE Stop: 07/29/21 22:44 Last Admin: 07/29/21 22:57 Dose: 5 mg Documented by: [id number] Morphine Sulfate (Morphine Sulfate 4 Mg/Ml 1 Ml Carp\Vial) 4 mg IV NOW STA Stop: 07/29/21 20:22 Last Admin: 07/29/21 20:55 Dose: 4 mg Documented by: [id number] Ondansetron HCl (Ondansetron Inj 2 Mg/Ml 2 Ml Vial) 4 mg IV NOW STA Stop: 07/29/21 20:22 Last Admin: 07/29/21 20:54 Dose: 4 mg Documented by: [id number] Ondansetron HCl (Ondansetron Inj 2 Mg/Ml 2 Ml Vial) 4 mg IV NOW STA Stop: 07/29/21 21:51 Last Admin: 07/29/21 22:05 Dose: 4 mg Documented by: [id number] Imaging Data Radiologist's Impression: Abdomen/Pelvis CT 07/29/21 20:25 CT SCAN OF THE ABDOMEN AND PELVIS WITH IV CONTRAST CLINICAL HISTORY: Upper abdominal pain. Nausea. COMPARISON STUDY: Abdominal CT dated 02/02/2019. TECHNIQUE: Following the IV administration of 94 cc of Optiray 320, CT scan of the abdomen and pelvis is performed from the lung bases to the proximal femora. Images are reviewed in the axial, sagittal, and coronal planes. IV contrast was administered without complication. A dose lowering technique was utilized adhering to the principles of ALARA. CT DOSE: 515.35 mGy.cm FINDINGS: Lung bases: The heart is normal in size and without pericardial effusion. The lung bases are clear. A small hiatal hernia is noted. Liver: The contrast-enhanced liver is normal in size, contour, and attenuation. There is no intrahepatic biliary ductal dilatation. The hepatic veins and portal veins are patent. Gallbladder: Surgically absent noting clips in the gallbladder fossa. Spleen: Normal in size and attenuation. Pancreas: Unremarkable. Adrenal glands: Unremarkable. Kidneys: The contrast enhanced kidneys demonstrate mild cortical atrophy and are without hydronephrosis. The kidneys enhance symmetrically. Abdominal vasculature: The abdominal aorta is normal in course and caliber no ting scattered foci of atherosclerotic calcification. Bowel: Question wall thickening of the distal stomach. There is no bowel obstruction. The appendix is well-visualized and normal. Peritoneum: There is no intraperitoneal free air or abdominal ascites. Lymphadenopathy: None. Pelvic viscera: Evaluation of the pelvis is degraded by streak artifact from a right hip arthroplasty. The bladder, uterus, and adnexa are normal as visualized. Skeletal structures: The skeletal structures are osteopenic. There is mild lumbosacral spondylosis. No lytic or blastic lesions are seen. A right hip arthroplasty is in place. Advanced arthritic change is noted in the left hip. IMPRESSION: Question wall thickening of the distal stomach. Correlate clinically for evidence of gastritis. This is not well evaluated by CT and could be further assessed with endoscopy if clinically warranted. ACT 112: Negative or not required by law. Electronically signed by: Prosper Mccarthy M.D. 07/29/2021 10:24 PM Discharge Plan Visit Data Chief Complaint: Abdominal Pain Stated Complaint: PAIN IN STERNUM ED Provider: Tanvir Gilbert Discharge Problem: Abdominal pain, epigastric, Gastritis, Nausea & vomiting Patient Disposition: Being Evaluated by Hospitalist Forms Stand Alone Forms: [facility] Prescriptions Prescriptions: No Action bupropion HCl 200 mg tablet sustained-release 12 hr 200 mg PO BID 30 Days Qty: 180 RF: 3 gabapentin 300 mg capsule 300 mg PO TID 90 Days Qty: 270 RF: 3 omeprazole 20 mg capsule,delayed release(DR/EC) 20 mg PO QAM RF: 0 meclizine 25 mg tablet 12.5 mg PO HS Qty: 90 RF: 3 cholecalciferol (vitamin D3) [Vitamin D3] 50 mcg (2,000 unit) capsule 10,000 unit PO DAILY RF: 0 escitalopram oxalate 20 mg tablet 20 mg PO HS 90 Days Qty: 90 RF: 3 diphenhydramine-acetaminophen [Tylenol PM Extra Strength] 25-500 mg tablet 1 tab PO Q6H PRNRF: 0 ferrous sulfate 325 mg (65 mg iron) tablet 325 mg PO QAM RF: 0 Stool Softener 50 mg Capsule 100 mg PO HS RF: 0 multivitamin Capsule 1 cap PO QAM RF: 0 tamoxifen 20 mg Tablet 20 mg PO QAM RF: 0 omega 4-cuy-rim-fish oil [Fish Oil] 1,000 mg (120 mg-180 mg) Capsule 1 cap PO QPM RF: 0 prednisone 10 mg tablet 10 mg PO DAILY PRN (Reason: MS flare up) RF: 0 Citrucel (sucrose) Powder 2 tsp PO HS RF: 0 calcium-vitamin D3-vitamin K [Viactiv] 650 mg-12.5 mcg-40 mcg Tablet,Chewable 1 tab PO BID RF: 0 Referrals Referrals: Isadora Pacheco MD [Primary Care Provider] - Discharge Problem: Gastritis Qualifiers: Gastritis type: unspecified gastritis Chronicity: acute Gastritis bleeding: w ithout bleeding Qualified Code(s): K29.00 - Acute gastritis without bleeding Nausea & vomiting Qualifiers: Vomiting type: unspecified Qualified Code(s): R11.2 - Nausea with vomiting, uns pecified
[2021-07-29 21:00] LABS: Alanine Aminotransferase 29 U/L (7-52); Albumin Globulin Ratio 1.6 (0.9-2); Albumin Level 4.4 gm/dl (3.4-5.0); Alkaline Phosphatase 54 U/L (34-104); Anion Gap 7 (3-11); Aspartate Aminotransferase 22 U/L (13-39); BUN Creatinine Ratio 15.3 (10-20); Bilirubin,Total 0.7 mg/dl (0.2-1.0); Blood Urea Nitrogen 15 mg/dl (6-23); Calcium 9.1 mg/dl (8.5-10.1); Carbon Dioxide 26 mmol/L (21-32); Chloride 104 mmol/L (98-107); Est GFR (African American) 66.8 ml/min; Est GFR (Non-African American) 57.6 ml/min; Globulin 2.8 gm/dl (2.5-4.0); Glucose 125 mg/dl (70-99(Fasting)); Lipase 29 U/L (11-82); Potassium 3.9 mmol/L (3.5-5.1); Sodium 137 mmol/L (136-145); Total Protein 7.2 gm/dl (6.0-8.3)
[2021-07-29 21:36] LABS: Appearance Urine Cloudy (Clear); Bacteria Urine Automated Negative (Negative); Bilirubin Urine Negative (Negative); Blood Urine Negative (Negative); Cast Urine Automated 0 /lpf (0-5); Color Urine Yellow; Glucose Urine UA Negative (Negative); Ketones Urine Negative (Negative); Leukocyte Esterase Urine Negative (Negative); Nitrite Urine Negative (Negative); Protein Urine Negative (Negative); RBC Urine Automated 0-4 /hpf (0-4); Specific Gravity Urine 1.015 (1.000-1.030); Urobilinogen Urine Negative (Negative); pH Urine 8.5 (4.5-7.5)
[2021-07-29] MEDS ORDERED: OPTIRAY 320 100ml IV ONE (22:10)
--- NOTE | 2021-07-29 22:26 | CT Scan Report ---
CT SCAN OF THE ABDOMEN AND PELVIS WITH IV CONTRAST CLINICAL HISTORY: Upper abdominal pain. Nausea. COMPARISON STUDY: Abdominal CT dated 02/02/2019. TECHNIQUE: Following the IV administration of 94 cc of Optiray 320, CT scan of the abdomen and pelvi s is performed from the lung bases to the proximal femora. Images are reviewed in the axial, sagittal , and coronal planes. IV contrast was administered without complication. A dose lowering technique wa s utilized adhering to the principles of ALARA. CT DOSE: 515.35 mGy.cm FINDINGS: Lung bases: The heart is normal in size and without pericardial effusion. The lung bases are clear. A small hiatal hernia is noted. Liver: The contrast-enhanced liver is normal in size, contour, and attenuation. There is no intrahepa tic biliary ductal dilatation. The hepatic veins and portal veins are patent. Gallbladder: Surgically absent noting clips in the gallbladder fossa. Spleen: Normal in size and attenuation. Pancreas: Unremarkable. Adrenal glands: Unremarkable. Kidneys: The contrast enhanced kidneys demonstrate mild cortical atrophy and are without hydronephros is. The kidneys enhance symmetrically. Abdominal vasculature: The abdominal aorta is normal in course and caliber noting scattered foci of a therosclerotic calcification. Bowel: Question wall thickening of the distal stomach. There is no bowel obstruction. The appendix is well-visualized and normal. Peritoneum: There is no intraperitoneal free air or abdominal ascites. Lymphadenopathy: None. Pelvic viscera: Evaluation of the pelvis is degraded by streak artifact from a right hip arthroplasty . The bladder, uterus, and adnexa are normal as visualized. Skeletal structures: The skeletal structures are osteopenic. There is mild lumbosacral spondylosis. N o lytic or blastic lesions are seen. A right hip arthroplasty is in place. Advanced arthritic change is noted in the left hip. IMPRESSION: Question wall thickening of the distal stomach. Correlate clinically for evidence of joelle ritis. This is not well evaluated by CT and could be further assessed with endoscopy if clinically wa rranted. ACT 112: Negative or not required by law. Electronically signed by: Prosper Mccarthy M.D. 07/29/2021 10:24 PM
[2021-07-29] MEDS ORDERED: METOCLOPRAMIDE HCL INJ 5 MG/ML 2 ML VIAL IV ONE (22:43)
[2021-07-29] MEDS ORDERED: MECLIZINE HCL 25 MG TAB PO STA (22:43)
[2021-07-29] MEDS ORDERED: SODIUM CHLORIDE 0.9% 500 ML IV ONE (22:46)
[2021-07-29] MEDS ORDERED: PANTOprazole 40 MG in SYRINGE 0 ML IV ONE (22:49)
--- NOTE | 2021-07-30 00:37 | History & Physical Report ---
Date of Service July 30, 2021 Assessment & Plan (1) Gastritis: (2) Nausea & vomiting: (3) Multiple sclerosis: (4) GERD without esophagitis: (5) Depression: (6) CKD (chronic kidney disease) stage 3, GFR 30-59 ml/min: Plan: Benjie Santacruz is a 70-year-old female with PMH of MS, CKD,breast cancer, past cholecystectomy, hiatal hernia, GERD who presents due to GI symptoms since yesterday afternoon. Likely consistent with viral gastroenteritis, unable to tolerate oral nutrition or hydration at home. GI illness w/ gastritis - Likely due to viral gastroenteritis - CT abdomen showing distal stomach thickening likely consistent with gastritis -- may be acute due to current illness vs chronic due to GERD - Zofran prn - Protonix 40mg IV daily - LR at 100 cc/h - NPO for now, can advance diet as tolerated -- several home meds on hold, can c ontinue once tolerating PO - Electrolytes normal, will check magnesium on admission - Check daily BMP Dizziness - Acute on chronic - Will continue meclizine prn Multiple sclerosis - Follows with [facility] [place] Neurology - Above chronic dizziness possibly related to her MS per latest neuro note - Uses prednisone 10mg PO daily prn for MS flare History of breast cancer - s/p left lumpectomy - On tamoxifen 20mg daily -- continue when able to tolerate PO GERD - CT findings of gastritis as above - Uses oral PPI daily at home - Will give IV Protonix here due to PO intolerance Anxiety/depression - Continue home escitalopram and bupropion as able to tolerate PO CKD - Cr 0.98, BUN 15, eGFR 57.6 on admission - Monitor BMP - Avoid nephrotoxins DVT ppx: Heparin 5000 units q12h FEN/GI: NPO (advance as tolerated), LR at 100 cc/hr, IV Protonix for GI ppx Dispo: MedSurg for observation CODE STATUS: DNR/DNI History of Present Illness Primary Care Provider: Isadora Pacheco MD Benjie Santacruz is a 70-year-old female with PMH of MS, CKD,breast cancer, past cholecystectomy, hiatal hernia, GERD who presents due to GI symptoms since yesterday afternoon. Patient reports she had lunch yesterday around noon and felt normal until about 2PM when she started having significant upper abdominal discomfort. Also had nausea and diarrhea. Eventually developed some vomiting, and has since been unable to keep much down. Has tolerated some small sips of water but has not had much to eat as the discomfort is too much. She tried using Mylanta and Pepto Bismol but did not cerna much relief with these. She reports that the abdominal discomfort seems to be a little worse on the RUQ but is present all throughout the upper abdomen. Additionally patient reports d izziness, which is a chronic issue for her, but seems to be worse currently, especially with too much head movement. She uses meclizine PRN at home for dizziness. Otherwise denies significant CP, palp, SOB, cough, back pain, new neuro deficits. In the ED, given IV Protonix, IV famotidine, IV zofran 4mg x2, NSS bolus x 1L, morphine 4mg IV x1, Reglan IV x1, meclizine 25mg PO x1. Labs unremarkable with no leukocytosis or anemia, normal electrolytes, normal LFTs. CT of the abdomen showed questionable thickening of the distal stomach potentially consistent with gastritis. Patient hemodynamically stable with mild elevation in BP. Allergies Allergy/AdvReac Type Severity Reaction Status Date / Time adhesive Allergy Unknown skin Verified 06/29/21 12:25 tears, skin blisters tetracycline Allergy Unknown rash Verified 06/29/21 12:25 clonazepam AdvReac Unknown Depression Verified 06/29/21 12:25 erythromycin base AdvReac Unknown GI SYMPTOMS Verified 06/29/21 12:25 zolpidem AdvReac Unknown sleep Verified 06/29/21 12:25 eating episodes Home Medications Medication Instructions Recorded Confirmed Type docusate sodium 50 mg capsule 100 mg PO HS 07/29/18 06/29/21 History (Stool Softener) multivitamin 1 cap PO QAM 07/29/18 06/29/21 History omega [id number]-fish oil 1,000 mg 1 cap PO QPM 07/29/18 06/29/21 History (120 mg-180 mg) capsule (Fish Oil) tamoxifen 20 mg tablet 20 mg PO QAM 07/29/18 06/29/21 History calcium 650 mg-vitamin D3 12.5 1 tab PO BID 06/24/19 06/29/21 History mcg-vitamin K 40 mcg chewable tablet (Viactiv) methylcellulose (with sugar) oral 2 tsp PO HS 06/24/19 06/29/21 History powder (Citrucel (sucrose)) omeprazole 20 mg capsule,delayed 20 mg PO QAM cap 03/11/20 06/29/21 History release ferrous sulfate 325 mg (65 mg 325 mg PO QAM 09/23/20 06/29/21 History iron) tablet bupropion HCl 200 mg tablet,12 hr 200 mg PO BID 30 Days #180 ea 11/08/20 06/29/21 Rx sustained-release escitalopram oxalate 20 mg tablet 20 mg PO HS 90 Days #90 tab 01/20/21 06/29/21 Rx prednisone 10 mg tablet 10 mg PO DAILY PRN 03/07/21 06/29/21 History cholecalciferol (vitamin D3) 50 10,000 unit PO DAILY cap 04/08/21 06/29/21 History mcg (2,000 unit) capsule (Vitamin D3) meclizine 25 mg tablet 12.5 mg PO HS #90 tab 04/08/21 06/29/21 Rx gabapentin 300 mg capsule 300 mg PO TID 90 Days #270 cap 04/12/21 06/29/21 Rx diphenhydramine 25 1 tab PO Q6H PRN 06/29/21 06/29/21 History mg-acetaminophen 500 mg tablet (Tylenol PM Extra Strength) Past Med/Surg History Medical History Anxiety Breast cancer (~02/2013) Cancer of central portion of left female breast Carcinoma of upper-outer quadrant of left female breast (02/25/13) Cholelithiasis Chronic leukopenia CKD (chronic kidney disease) stage 3, GFR 30-59 ml/min Depression GERD (gastroesophageal reflux disease) Heart murmur Hiatal hernia History of breast cancer History of neuropathy Multiple sclerosis Osteoarthritis Temporomandibular joint disorder Urinary incontinence Vertigo Surgical History History of adenoidectomy History of breast lump removal History of cataract extraction with lens replacement History of colonoscopy History of dental surgery History of dilatation and curettage History of esophagogastroduodenoscopy (EGD) History of left knee replacement History of tonsillectomy History of vascular access device Hx laparoscopic cholecystectomy (02/03/19) Status post right hip replacement Family History Aunt Family history of diabetes mellitus Grandfather (Maternal) Family history of melanoma Colorectal cancer Grandmother (Maternal) Hypertension Cancer Mother Dementia Father Alcoholism Macular degeneration Rheumatoid arthritis Other Diabetes Heart disease Thyroid disorder Denies family history of Ovarian cancer Prostate cancer Myocardial infarction Breast cancer Lung cancer Uterine cancer Stroke Social History Smoking Status: Never smoker Second Hand Exposure: Yes ( A CHILD); Hx Alcohol Use: Yes Alcohol type: wine Alcohol Intake Frequency: 4 or More x per/Week Hx Substance Use: No Preferred Language: [place] Communication Ability: Effective Visual Impairment: No Limitations Hearing Ability: Normal Head Animal Keeper Required: No Beliefs That Will Affect Care: None marital status: Current Living Situation: Spouse current occupational status: retired Feels Safe at Home: Yes Childhood Exposure to Second-Hand Smoke: No caffeine: Yes during the past year weight has: remained stable Dental Care, Regularly: Yes Physical Activity Frequency: Daily Seatbelt Use: always Sunscreen Use: Yes Assistive Devices: Cane and Glasses Review of Systems Review of Systems: see HPI Physical Exam Physical Exam: GENERAL: WD/WN. Ill appearing. NAD. HEENT: PERRL, EOMI. Dry mucous membranes. NECK: No JVD. No lymphadenopathy. CHEST/LUNGS: CTAB A/P. No crackles, wheezes, rales, rhonchi. HEART: RRR. No m/g/r. No carotid bruits. ABDOMEN: Mild TTP along upper abdomen, right more than left. Pino sign negative. ND, soft. BS+ x4. EXTREMITIES: No cyanosis, no clubbing, no edema SKIN: Warm and dry. No rashes or lesions. PSYCHIATRIC: Euthymic affect, no SI, no pressured speech, no hallucinations NEUROLOGIC: No FND. Results & Data Results & Data ([facility]) Vital Signs (Past 12 Hours) Vital Signs Temp Pulse Pulse Resp BP BP Pulse Ox 07/29/21 22:00 36.9 C 71 18 153/82 H 94 07/29/21 20:15 37.1 C 69 69 18 170/81 H 98 07/29/21 19:22 36.6 C 65 18 156/95 H 95 Laboratory Results Laboratory Results WBC 5.10 K/uL (4.8-10.8) 07/29/21 20:16 RBC 4.61 M/uL (4.2-5.4) 07/29/21 20:16 Hgb 14.9 g/dL (12.0-16.0) 07/29/21 20:16 Hct 43.1 % (37-47) 07/29/21 20:16 MCV 93.5 fL (80-100) 07/29/21 20:16 MCH 32.3 pg (25-34) 07/29/21 20:16 MCHC 34.6 g/dL (32-36) 07/29/21 20:16 RDW Std Deviation 42.1 fL (36.4-46.3) 07/29/21 20:16 RDW Coeff of Phani 12.4 % (11.5-14.5) 07/29/21 20:16 Plt Count 180 K/uL (130-400) 07/29/21 20:16 MPV 10.1 fL (7.4-10.4) 07/29/21 20:16 Immature Gran % (Auto) 0.0 % 07/29/21 20:16 Neut % (Auto) 60.2 % 07/29/21 20:16 Lymph % (Auto) 29.6 % 07/29/21 20:16 [place] % (Auto) 8.4 % 07/29/21 20:16 Eos % (Auto) 1.6 % 07/29/21 20:16 Baso % (Auto) 0.2 % 07/29/21 20:16 Neut # (Auto) 3.07 K/uL (1.4-6.5) 07/29/21 20:16 Lymph # (Auto) 1.51 K/uL (1.2-3.4) 07/29/21 20:16 [place] # (Auto) 0.43 K/uL (0.11-0.59) 07/29/21 20:16 Eos # (Auto) 0.08 K/uL (0-0.5) 07/29/21 20:16 Baso # (Auto) 0.01 K/uL (0-0.2) 07/29/21 20:16 Immature Gran # (Auto) 0.00 K/uL (0.00-0.02) 07/29/21 20:16 Sodium 137 mmol/L (136-145) 07/29/21 20:16 Potassium 3.9 mmol/L (3.5-5.1) 07/29/21 20:16 Chloride 104 mmol/L (98-107) 07/29/21 20:16 Carbon Dioxide 26 mmol/L (21-32) 07/29/21 20:16 Anion Gap 7 (3-11) 07/29/21 20:16 BUN 15 mg/dl (6-23) 07/29/21 20:16 Creatinine 0.98 mg/dl (0.6-1.2) 07/29/21 20:16 Est Cr Clr Drug Dosing Not Reportable 07/29/21 20:16 Est GFR ( Amer) 66.8 ml/min 07/29/21 20:16 Est GFR (Non-Af Amer) 57.6 ml/min 07/29/21 20:16 BUN/Creatinine Ratio 15.3 (10-20) 07/29/21 20:16 Glucose 125 mg/dl (70-99(Fasting)) H 07/29/21 20:16 Calcium 9.1 mg/dl (8.5-10.1) 07/29/21 20:16 Magnesium 2.3 mg/dl (1.7-2.4) 07/29/21 20:16 Total Bilirubin 0.7 mg/dl (0.2-1.0) 07/29/21 20:16 AST 22 U/L (13-39) 07/29/21 20:16 ALT 29 U/L (7-52) 07/29/21 20:16 Alkaline Phosphatase 54 U/L (34-104) 07/29/21 20:16 Troponin I < 0.03 ng/ml (0-0.04) 07/29/21 20:16 Total Protein 7.2 gm/dl (6.0-8.3) 07/29/21 20:16 Albumin 4.4 gm/dl (3.4-5.0) 07/29/21 20:16 Globulin 2.8 gm/dl (2.5-4.0) 07/29/21 20:16 Albumin/Globulin Ratio 1.6 (0.9-2) 07/29/21 20:16 Lipase 29 U/L (11-82) 07/29/21 20:16 Urine Color Yellow 07/29/21 21:20 Urine Appearance Cloudy (Clear) A 07/29/21 21:20 Urine pH 8.5 (4.5-7.5) H 07/29/21 21:20 Ur Specific [place] 1.015 (1.000-1.030) 07/29/21 21:20 Urine Protein Negative (Negative) 07/29/21 21:20 Urine Glucose (UA) Negative (Negative) 07/29/21 21:20 Urine Ketones Negative (Negative) 07/29/21 21:20 Urine Blood Negative (Negative) 07/29/21 21:20 Urine Nitrite Negative (Negative) 07/29/21 21:20 Urine Bilirubin Negative (Negative) 07/29/21 21:20 Urine Urobilinogen Negative (Negative) 07/29/21 21:20 Ur Leukocyte Esterase Negative (Negative) 07/29/21 21:20 Urine WBC (Auto) 1-5 /hpf (0-5) 07/29/21 21:20 Urine RBC (Auto) 0-4 /hpf (0-4) 07/29/21 21:20 U Hyaline Cast (Auto) 0 /lpf (0-5) 07/29/21 21:20 U Epithel Cells (Auto) 5-10 /lpf (0-5) H 07/29/21 21:20 Urine Bacteria (Auto) Negative (Negative) 07/29/21 21:20 SARS-CoV-2, RNA, NAAT NEGATIVE (NEGATIVE) 07/29/21 23:35 Impressions Abdomen/Pelvis CT 07/29/21 20:25 CT SCAN OF THE ABDOMEN AND PELVIS WITH IV CONTRAST CLINICAL HISTORY: Upper abdominal pain. Nausea. COMPARISON STUDY: Abdominal CT dated 02/02/2019. TECHNIQUE: Following the IV administration of 94 cc of Optiray 320, CT scan of the abdomen and pelvis is performed from the lung bases to the proximal femora. Images are reviewed in the axial, sagittal, and coronal planes. IV contrast was administered without complication. A dose lowering technique was utilized adhering to the principles of ALARA. CT DOSE: 515.35 mGy.cm FINDINGS: Lung bases: The heart is normal in size and without pericardial effusion. The lung bases are clear. A small hiatal hernia is noted. Liver: The contrast-enhanced liver is normal in size, contour, and attenuation. There is no intrahepatic biliary ductal dilatation. The hepatic veins and portal veins are patent. Gallbladder: Surgically absent noting clips in the gallbladder fossa. Spleen: Normal in size and attenuation. Pancreas: Unremarkable. Adrenal glands: Unremarkable. Kidneys: The contrast enhanced kidneys demonstrate mild cortical atrophy and are without hydronephrosis. The kidneys enhance symmetrically. Abdominal vasculature: The abdominal aorta is normal in course and caliber noting scattered foci of atherosclerotic calcification. Bowel: Question wall thickening of the distal stomach. There is no bowel obstruction. The appendix is well-visualized and normal. Peritoneum: There is no intraperitoneal free air or abdominal ascites. Lymphadenopathy: None. Pelvic viscera: Evaluation of the pelvis is degraded by streak artifact from a right hip arthroplasty. The bladder, uterus, and adnexa are normal as visualized. Skeletal structures: The skeletal structures are osteopenic. There is mild lumbosacral spondylosis. No lytic or blastic lesions are seen. A right hip arthroplasty is in place. Advanced arthritic change is noted in the left hip. IMPRESSION: Question wall thickening of the distal stomach. Correlate clinically for evidence of gastritis. This is not well evaluated by CT and could be further assessed with endoscopy if clinically warranted. ACT 112: Negative or not required by law. Electronically signed by: Prosper Mccarthy M.D. 07/29/2021 10:24 PM Code Status & VTE Plan VTE Prophylaxis Plan VTE Prophylaxis will be ordered: Yes Supervising Physician Co-Signing Physician Notes Patient seen and examined, chart reviewed, case discussed with Dr. Eduar Krishna and I agree with the assessment and plan as above. In brief, patient is a 70yo female with history of GERD, CKD presenting with 1 day of nausea/vomiting and diarrhea. Unable to tolerate oral intake. On exam she is sleeping comfortably, arousable, able to answer questions Skin - no tenting, no rash HEENT - Dry mm, neck supple Heart - +S1/S2, regular, no m/r/g Lungs - CTA Abd - mildly tender diffusely no rebound/guarding/peritoneal signs Ext no edema Labs and images reviewed. No significant dehydration, electrolyte derangement present Assessment/Plan -Suspect viral gastroenteritis. Supportive care -Remainder as above Resident Activity Tracking Resident Involvement: Resident Care Provided Care Provided: Adult Hospital Medicine (1) Gastritis Chronicity: acute Gastritis bleeding: without bleeding Gastritis type: unspecified gastritis Qualified Code(s): K29.00 - Acute gastritis without bleeding (2) Nausea & vomiting Vomiting type: unspecified Qualified Code(s): R11.2 - Nausea with vomiting, unspecified
--- NOTE | 2021-07-30 02:25 | Billing Data ---
Date of Service July 30, 2021 Coding Level of Care Code INT OBSERVATION CARE 50M LVL 2
[2021-07-30] MEDS ORDERED: MECLIZINE 12.5 MG TAB PO PRN (02:54)
[2021-07-30] MEDS ORDERED: POLYETHYLENE (MIRALAX) 17 GM PACK PO PRN (02:54)
[2021-07-30] MEDS ORDERED: diphenhydrAMINE Capsule 25 MG CAP PO PRN (03:25)
[2021-07-30] MEDS ORDERED: ACETAMINOPHEN 500 MG TAB PO PRN (03:26)
[2021-07-30] MEDS: LACTATED RINGER'S 1,000 ML IV SCH ×2 (05:26→17:07)
[2021-07-30] MEDS ORDERED: PANTOprazole 40 MG in SYRINGE 0 ML IV SCH ×2 (05:45→11:00)
[2021-07-30] MEDS ORDERED: hydrALAZINE HCL 20 MG/ML VIAL IV PRN (07:55)
[2021-07-30] MEDS: GABAPENTIN 300 MG CAP PO SCH ×3 (08:31→21:10)
[2021-07-30] MEDS: buPROPion SR 100 MG TABCR PO SCH ×2 (08:32→21:10)
[2021-07-30 09:17] LABS: Hematocrit (blood only) 39.2 % (37-47); Hemoglobin 13.4 g/dL (12.0-16.0); Mean Corpuscular Hemoglobin 32.1 pg (25-34); Mean Corpuscular Hgb Conc 34.2 g/dL (32-36); Mean Platelet Volume 10.2 fL (7.4-10.4); Platelet Count 168 K/uL (130-400); RDW Coefficient of Variation 12.5 % (11.5-14.5); RDW Standard Deviation 42.9 fL (36.4-46.3); Red Blood Count 4.17 M/uL (4.2-5.4); White Blood Count 5.54 K/uL (4.8-10.8)
[2021-07-30 09:25] LABS: Estimated Average Glucose 117 mg/dl; Hemoglobin A1C 5.7 % (4.5-5.6)
[2021-07-30 09:34] LABS: Albumin Globulin Ratio 1.6 (0.9-2); Albumin Level 3.9 gm/dl (3.4-5.0); BUN Creatinine Ratio 11.7 (10-20); Bilirubin,Total 0.7 mg/dl (0.2-1.0); Chol HDL Ratio 2.6 (0-5); Creatinine Clr Calc Pharmacy 49.4 ml/min; Est GFR (African American) 70.2 ml/min; Est GFR (Non-African American) 60.6 ml/min; Globulin 2.4 gm/dl (2.5-4.0); Potassium 3.8 mmol/L (3.5-5.1); Total Protein 6.3 gm/dl (6.0-8.3)
[2021-07-30] MEDS ORDERED: GADOBUTROL 65ML VIAL IV ONE (10:21)
--- NOTE | 2021-07-30 10:47 | Magnetic Resonance Report ---
Brain MRI WITH AND WITHOUT CONTRAST HISTORY: n/v, vertigo, hx breast ca, MS r/o cerebellar cva TECHNIQUE: Multiplanar multisequence MRI of the brain was performed both before and after the intrave nous administration of contrast. COMPARISON STUDY: Brain MRI 12/31/2018. FINDINGS: There is no mass, hematoma, midline shift, or acute infarct. The paranasal sinuses are sarah r. The mastoid air cells are clear. Scattered foci of T2 hyperintensity seen within the periventricul ar white matter are not simply changed. Postcontrast sequences show no areas of abnormal enhancement. Stable mild ventriculomegaly. Bilateral lens replacement.. The major vascular flow voids at the skul l base are well-maintained. IMPRESSION: 1. No significant change compared to the prior study. No acute intracranial abnormality. 2. Stable scattered T2 hyperintense foci within the periventricular white matter which remain nonspec ific. This could be due to chronic microvascular ischemic change or a demyelinating disease. 3. Stable mild ventriculomegaly. ACT 112: Negative or not required by law. Electronically signed by: Antonio Stoddard M.D. 07/30/2021 10:45 AM
[2021-07-30] MEDS ORDERED: STAT IV STA (12:03)
[2021-07-30] MEDS ORDERED: CALCIUM GLUCONATE 10% 1,000 MG in DEXTROSE 5% 50 ML IV ONE (12:15)
--- NOTE | 2021-07-30 12:37 | Hospitalist Progress Note ---
Date of Service July 30, 2021 Assessment & Plan (1) Gastritis: (2) Nausea & vomiting: (3) Multiple sclerosis: (4) GERD without esophagitis: (5) Depression: (6) CKD (chronic kidney disease) stage 3, GFR 30-59 ml/min: Plan: Benjie Santacruz is a 70-year-old female with PMH of MS, CKD,breast cancer, past cholecystectomy, hiatal hernia, GERD who presents due to GI symptoms since yesterday afternoon. Likely consistent with viral gastroenteritis, unable to tolerate oral nutrition or hydration at home. GI illness w/ gastritis/diarrhea - Likely due to viral gastroenteritis vs food poisoning occurring shortly after being out to eat - CT abdomen showing distal stomach thickening likely consistent with gastritis -- may be acute due to current illness vs chronic due to GERD --> She does have hx gastritis on prior EGD 2018 and admits to daily 200mg ibuprofen. Also with prednisone 60mg/40mg/20mg taper x 3 days for her MS flares. States occurs every 1-2 months but never exceeds Dr Landeros rx for every 6 months. Had been on protonix BID in the past but only on omeprazole daily currently Place on PPI IV BID while not really taking in much PO, would rec BID dosing at d/c given prior gastritis GI consulted -- BRAT diet, conservative tx. Outpt follow-up. If symptoms >1wk, need further evaluation Added carafate for symptoms to see if any benefit for now Antiemetics prn Lipase wnl Will also check stool studies with any further diarrhea IVF ordered, continued given dehydration on examination, and ordered clear liquids/BRAT diet and can advance as tolerated Dizziness Acute on chronic, reported worsening over past 6 months. Follows with Neurology for MS and was due for MRI Continue meclizine prn Multiple sclerosis Follows with [facility] Neurology Dr Guerrero Above chronic dizziness possibly related to her MS per latest neuro note --> MRI brain obtained MS protocol as well given dizziness/balance to r/o CVA. Discussed findings with Dr Veliz, no need for further work-up and can have routine f/u Prednisone 10mg listed on med rec --> discussed with patient and she typically has to use 60mg+40mg+20mg over 3 days when has MS flares...typically every 1-2 months She did state her gait was much improved last summer with PT/OT but during winter months not as active History of breast cancer s/p left lumpectomy and underwent chemo/radiation and was maintained on tamoxifen x 7 years. Follows with [facility] and up to date on recent mammograms. Most recent mammogram earlier this year NOT on TAMOXIFEN since last Summer. GERD CT findings of gastritis as above, on omeprazole daily at home but had been on BID dosing in past with hx gastritis. Given her increased steroids over winter and chronic use of NSAIDs, may benefit from lifelong BID PPI use Monitor above Anxiety/depression Continue home escitalopram and bupropion as able to tolerate PO CKD III Cr stable on admission Not much of appetite and continues on IVF as above, encourage PO intake as above BMP in AM DVT ppx: Heparin 5000 units q12h Admission and Anticipated Discharge Date Admission Date: July 30, 2021 Supervising Physician Co-Signing Physician Notes JOHANA Supervision Note: I did not personally see or examine the patient today, but I verified all story points of JOHANA Rod's assessment and plan with the following exceptions/additions: None Subjective BRIDGE NOTE: Admitted after midnight Eval this afternoon. States actually got some sleep. MRI this morning reviewed and unchanged from prior. She notes she had been at [employer] w/ friends and only one who had burger/crab soup. Noted to have n/v/abd pain and diarrhea about 1 hour following. Additional episode of diarrhea in the evening. No blood, melena to stools. Admits she does take ibuprofen 200mg daily typically for pain but has been limiting and using Tylenol with Tylenol PM for sleep for pain. She states prior EGD in past with Dr Rene. Unsure of timing, but states afterward he put her on "something stronger than her omeprazole." Discussed pantoprazole and she states that was it,and he had her on this BID for a couple weeks. No new medications/recent infections. Hx MS,. Takes prednisone 60/40/20mg as needed taper for flare. Last flare about 3-4 weeks ago. She states about every 1-2 months or so she needs this. She states she was having some issues with gait and did make progress with therapy but then over the winter had been going out less and required more frequent dosing that typical. Has not needed any tx for her MS since breast ca s/p lumpectomy/XRT/chemo and had stopped tamoxifen last summer after 7 years. Maintains yearly mammograms, most recent this April and follows with [facility]. Dry mouth continues. Not yet seen by GI but if no plans for scope will advance diet. She is not very hungry at this time but has been urinating without issue. Discussed obtaining stool studies if any further diarrhea, she states none at this time. Per review of prior GI,EGD inDec 2019 with normal esophagus, small hiatal hernia, and GASTRITIS. Review of Systems Review of Systems: All systems reviewed & are unremarkable except as noted in HPI & below Physical Exam Physical Exam: General: WD female, slightly dehydrated, no acute distress, laying in hospital bed HEENT: eyes anicteric, pupils equal and reactive to light, dry mm (improved with sip of water), trachea midline without deviation Resp: CTAB, no w/c, on room air CV: RR, no m/r/g, no edema, cap refill wnl GI: +BS, soft, slight tenderness to palpation epigastric/RUQ, no guarding/rigidity : no jaramillo MSK/Neuro: moves all extremities, 4/5 strength throughout, R hip pain (chronic) Psych: AOX3, pleasant and cooperative Skin: warm ,dry Results & Data Results & Data ([facility]) Vital Signs (Past 12 Hours) Vital Signs Temp Pulse Pulse Resp BP Pulse Ox 07/30/21 07:00 36.9 C 62 18 137/71 95 07/30/21 03:46 36.7 C 77 18 201/84 H 92 07/30/21 02:54 36.7 C 77 18 201/84 H 92 07/30/21 02:00 37 C 68 16 158/91 H 96 Laboratory Results 07/30/21 07/30/21 07/30/21 Range/Units 08:53 08:53 08:53 WBC (4.8-10.8) K/uL RBC (4.2-5.4) M/uL Hgb (12.0-16.0) g/dL Hct (37-47) % MCV (80-100) fL MCH (25-34) pg MCHC (32-36) g/dL RDW Std Deviation (36.4-46.3) fL RDW Coeff of Phani (11.5-14.5) % Plt Count (130-400) K/uL MPV (7.4-10.4) fL Immature Gran % (Auto) % Neut % (Auto) % Lymph % (Auto) % [place] % (Auto) % Eos % (Auto) % Baso % (Auto) % Neut # (Auto) (1.4-6.5) K/uL Lymph # (Auto) (1.2-3.4) K/uL [place] # (Auto) (0.11-0.59) K/uL Eos # (Auto) (0-0.5) K/uL Baso # (Auto) (0-0.2) K/uL Immature Gran # (Auto) (0.00-0.02) K/uL Sodium 138 (136-145) mmol/L Potassium 3.8 (3.5-5.1) mmol/L Chloride 107 (98-107) mmol/L Carbon Dioxide 26 (21-32) mmol/L Anion Gap 5 (3-11) BUN 11 (6-23) mg/dl Creatinine 0.94 (0.6-1.2) mg/dl Est Cr Clr Drug Dosing 49.4 Est GFR ( Amer) 70.2 ml/min Est GFR (Non-Af Amer) 60.6 ml/min BUN/Creatinine Ratio 11.7 (10-20) Glucose 94 (70-99(Fasting)) mg/dl Estimat Average Glucose 117 mg/dl Hemoglobin A1c 5.7 H (4.5-5.6) % Calcium 8.0 L (8.5-10.1) mg/dl Magnesium (1.7-2.4) mg/dl Total Bilirubin 0.7 (0.2-1.0) mg/dl AST 19 (13-39) U/L ALT 23 (7-52) U/L Alkaline Phosphatase 47 (34-104) U/L Troponin I (0-0.04) ng/ml Total Protein 6.3 (6.0-8.3) gm/dl Albumin 3.9 (3.4-5.0) gm/dl Globulin 2.4 L (2.5-4.0) gm/dl Albumin/Globulin Ratio 1.6 (0.9-2) Triglycerides 82 (0-150) mg/dl Cholesterol 167 (0-200) mg/dl LDL Cholesterol, Calc 87 mg/dl VLDL Cholesterol, Calc 16 (0-30) mg/dl HDL Cholesterol 64 mg/dl Cholesterol/HDL Ratio 2.6 (0-5) Lipase (11-82) U/L Folate 21.21 (>5.38) ng/ml Urine Color Urine Appearance (Clear) Urine pH (4.5-7.5) Ur Specific [place] (1.000-1.030) Urine Protein (Negative) Urine Glucose (UA) (Negative) Urine Ketones (Negative) Urine Blood (Negative) Urine Nitrite (Negative) Urine Bilirubin (Negative) Urine Urobilinogen (Negative) Ur Leukocyte Esterase (Negative) Urine WBC (Auto) (0-5) /hpf Urine RBC (Auto) (0-4) /hpf U Hyaline Cast (Auto) (0-5) /lpf U Epithel Cells (Auto) (0-5) /lpf Urine Bacteria (Auto) (Negative) SARS-CoV-2, RNA, NAAT (NEGATIVE) 07/30/21 07/29/21 07/29/21 Range/Units 08:53 23:35 21:20 WBC 5.54 (4.8-10.8) K/uL RBC 4.17 L (4.2-5.4) M/uL Hgb 13.4 (12.0-16.0) g/dL Hct 39.2 (37-47) % MCV 94.0 (80-100) fL MCH 32.1 (25-34) pg MCHC 34.2 (32-36) g/dL RDW Std Deviation 42.9 (36.4-46.3) fL RDW Coeff of Phani 12.5 (11.5-14.5) % Plt Count 168 (130-400) K/uL MPV 10.2 (7.4-10.4) fL Immature Gran % (Auto) % Neut % (Auto) % Lymph % (Auto) % [place] % (Auto) % Eos % (Auto) % Baso % (Auto) % Neut # (Auto) (1.4-6.5) K/uL Lymph # (Auto) (1.2-3.4) K/uL [place] # (Auto) (0.11-0.59) K/uL Eos # (Auto) (0-0.5) K/uL Baso # (Auto) (0-0.2) K/uL Immature Gran # (Auto) (0.00-0.02) K/uL Sodium (136-145) mmol/L Potassium (3.5-5.1) mmol/L Chloride (98-107) mmol/L Carbon Dioxide (21-32) mmol/L Anion Gap (3-11) BUN (6-23) mg/dl Creatinine (0.6-1.2) mg/dl Est Cr Clr Drug Dosing Est GFR ( Amer) ml/min Est GFR (Non-Af Amer) ml/min BUN/Creatinine Ratio (10-20) Glucose (70-99(Fasting)) mg/dl Estimat Average Glucose mg/dl Hemoglobin A1c (4.5-5.6) % Calcium (8.5-10.1) mg/dl Magnesium (1.7-2.4) mg/dl Total Bilirubin (0.2-1.0) mg/dl AST (13-39) U/L ALT (7-52) U/L Alkaline Phosphatase (34-104) U/L Troponin I (0-0.04) ng/ml Total Protein (6.0-8.3) gm/dl Albumin (3.4-5.0) gm/dl Globulin (2.5-4.0) gm/dl Albumin/Globulin Ratio (0.9-2) Triglycerides (0-150) mg/dl Cholesterol (0-200) mg/dl LDL Cholesterol, Calc mg/dl VLDL Cholesterol, Calc (0-30) mg/dl HDL Cholesterol mg/dl Cholesterol/HDL Ratio (0-5) Lipase (11-82) U/L Folate (>5.38) ng/ml Urine Color Yellow Urine Appearance Cloudy A (Clear) Urine pH 8.5 H (4.5-7.5) Ur Specific [place] 1.015 (1.000-1.030) Urine Protein Negative (Negative) Urine Glucose (UA) Negative (Negative) Urine Ketones Negative (Negative) Urine Blood Negative (Negative) Urine Nitrite Negative (Negative) Urine Bilirubin Negative (Negative) Urine Urobilinogen Negative (Negative) Ur Leukocyte Esterase Negative (Negative) Urine WBC (Auto) 1-5 (0-5) /hpf Urine RBC (Auto) 0-4 (0-4) /hpf U Hyaline Cast (Auto) 0 (0-5) /lpf U Epithel Cells (Auto) 5-10 H (0-5) /lpf Urine Bacteria (Auto) Negative (Negative) SARS-CoV-2, RNA, NAAT NEGATIVE (NEGATIVE) 07/29/21 07/29/21 07/29/21 Range/Units 20:16 20:16 20:16 WBC (4.8-10.8) K/uL RBC (4.2-5.4) M/uL Hgb (12.0-16.0) g/dL Hct (37-47) % MCV (80-100) fL MCH (25-34) pg MCHC (32-36) g/dL RDW Std Deviation (36.4-46.3) fL RDW Coeff of Phani (11.5-14.5) % Plt Count (130-400) K/uL MPV (7.4-10.4) fL Immature Gran % (Auto) % Neut % (Auto) % Lymph % (Auto) % [place] % (Auto) % Eos % (Auto) % Baso % (Auto) % Neut # (Auto) (1.4-6.5) K/uL Lymph # (Auto) (1.2-3.4) K/uL [place] # (Auto) (0.11-0.59) K/uL Eos # (Auto) (0-0.5) K/uL Baso # (Auto) (0-0.2) K/uL Immature Gran # (Auto) (0.00-0.02) K/uL Sodium 137 (136-145) mmol/L Potassium 3.9 (3.5-5.1) mmol/L Chloride 104 (98-107) mmol/L Carbon Dioxide 26 (21-32) mmol/L Anion Gap 7 (3-11) BUN 15 (6-23) mg/dl Creatinine 0.98 (0.6-1.2) mg/dl Est Cr Clr Drug Dosing Not Reportable Est GFR ( Amer) 66.8 ml/min Est GFR (Non-Af Amer) 57.6 ml/min BUN/Creatinine Ratio 15.3 (10-20) Glucose 125 H (70-99(Fasting)) mg/dl Estimat Average Glucose mg/dl Hemoglobin A1c (4.5-5.6) % Calcium 9.1 (8.5-10.1) mg/dl Magnesium 2.3 (1.7-2.4) mg/dl Total Bilirubin 0.7 (0.2-1.0) mg/dl AST 22 (13-39) U/L ALT 29 (7-52) U/L Alkaline Phosphatase 54 (34-104) U/L Troponin I < 0.03 (0-0.04) ng/ml Total Protein 7.2 (6.0-8.3) gm/dl Albumin 4.4 (3.4-5.0) gm/dl Globulin 2.8 (2.5-4.0) gm/dl Albumin/Globulin Ratio 1.6 (0.9-2) Triglycerides (0-150) mg/dl Cholesterol (0-200) mg/dl LDL Cholesterol, Calc mg/dl VLDL Cholesterol, Calc (0-30) mg/dl HDL Cholesterol mg/dl Cholesterol/HDL Ratio (0-5) Lipase 29 (11-82) U/L Folate (>5.38) ng/ml Urine Color Urine Appearance (Clear) Urine pH (4.5-7.5) Ur Specific [place] (1.000-1.030) Urine Protein (Negative) Urine Glucose (UA) (Negative) Urine Ketones (Negative) Urine Blood (Negative) Urine Nitrite (Negative) Urine Bilirubin (Negative) Urine Urobilinogen (Negative) Ur Leukocyte Esterase (Negative) Urine WBC (Auto) (0-5) /hpf Urine RBC (Auto) (0-4) /hpf U Hyaline Cast (Auto) (0-5) /lpf U Epithel Cells (Auto) (0-5) /lpf Urine Bacteria (Auto) (Negative) SARS-CoV-2, RNA, NAAT (NEGATIVE) 07/29/21 Range/Units 20:16 WBC 5.10 (4.8-10.8) K/uL RBC 4.61 (4.2-5.4) M/uL Hgb 14.9 (12.0-16.0) g/dL Hct 43.1 (37-47) % MCV 93.5 (80-100) fL MCH 32.3 (25-34) pg MCHC 34.6 (32-36) g/dL RDW Std Deviation 42.1 (36.4-46.3) fL RDW Coeff of Phani 12.4 (11.5-14.5) % Plt Count 180 (130-400) K/uL MPV 10.1 (7.4-10.4) fL Immature Gran % (Auto) 0.0 % Neut % (Auto) 60.2 % Lymph % (Auto) 29.6 % [place] % (Auto) 8.4 % Eos % (Auto) 1.6 % Baso % (Auto) 0.2 % Neut # (Auto) 3.07 (1.4-6.5) K/uL Lymph # (Auto) 1.51 (1.2-3.4) K/uL [place] # (Auto) 0.43 (0.11-0.59) K/uL Eos # (Auto) 0.08 (0-0.5) K/uL Baso # (Auto) 0.01 (0-0.2) K/uL Immature Gran # (Auto) 0.00 (0.00-0.02) K/uL Sodium (136-145) mmol/L Potassium (3.5-5.1) mmol/L Chloride (98-107) mmol/L Carbon Dioxide (21-32) mmol/L Anion Gap (3-11) BUN (6-23) mg/dl Creatinine (0.6-1.2) mg/dl Est Cr Clr Drug Dosing Est GFR ( Amer) ml/min Est GFR (Non-Af Amer) ml/min BUN/Creatinine Ratio (10-20) Glucose (70-99(Fasting)) mg/dl Estimat Average Glucose mg/dl Hemoglobin A1c (4.5-5.6) % Calcium (8.5-10.1) mg/dl Magnesium (1.7-2.4) mg/dl Total Bilirubin (0.2-1.0) mg/dl AST (13-39) U/L ALT (7-52) U/L Alkaline Phosphatase (34-104) U/L Troponin I (0-0.04) ng/ml Total Protein (6.0-8.3) gm/dl Albumin (3.4-5.0) gm/dl Globulin (2.5-4.0) gm/dl Albumin/Globulin Ratio (0.9-2) Triglycerides (0-150) mg/dl Cholesterol (0-200) mg/dl LDL Cholesterol, Calc mg/dl VLDL Cholesterol, Calc (0-30) mg/dl HDL Cholesterol mg/dl Cholesterol/HDL Ratio (0-5) Lipase (11-82) U/L Folate (>5.38) ng/ml Urine Color Urine Appearance (Clear) Urine pH (4.5-7.5) Ur Specific [place] (1.000-1.030) Urine Protein (Negative) Urine Glucose (UA) (Negative) Urine Ketones (Negative) Urine Blood (Negative) Urine Nitrite (Negative) Urine Bilirubin (Negative) Urine Urobilinogen (Negative) Ur Leukocyte Esterase (Negative) Urine WBC (Auto) (0-5) /hpf Urine RBC (Auto) (0-4) /hpf U Hyaline Cast (Auto) (0-5) /lpf U Epithel Cells (Auto) (0-5) /lpf Urine Bacteria (Auto) (Negative) SARS-CoV-2, RNA, NAAT (NEGATIVE) Diagnostic Findings Abdomen/Pelvis CT 07/29/21 20:25 CT SCAN OF THE ABDOMEN AND PELVIS WITH IV CONTRAST CLINICAL HISTORY: Upper abdominal pain. Nausea. COMPARISON STUDY: Abdominal CT dated 02/02/2019. TECHNIQUE: Following the IV administration of 94 cc of Optiray 320, CT scan of the abdomen and pelvis is performed from the lung bases to the proximal femora. Images are reviewed in the axial, sagittal, and coronal planes. IV contrast was administered without complication. A dose lowering technique was utilized adhering to the principles of ALARA. CT DOSE: 515.35 mGy.cm FINDINGS: Lung bases: The heart is normal in size and without pericardial effusion. The lung bases are clear. A small hiatal hernia is noted. Liver: The contrast-enhanced liver is normal in size, contour, and attenuation. There is no intrahepatic biliary ductal dilatation. The hepatic veins and portal veins are patent. Gallbladder: Surgically absent noting clips in the gallbladder fossa. Spleen: Normal in size and attenuation. Pancreas: Unremarkable. Adrenal glands: Unremarkable. Kidneys: The contrast enhanced kidneys demonstrate mild cortical atrophy and are without hydronephrosis. The kidneys enhance symmetrically. Abdominal vasculature: The abdominal aorta is normal in course and caliber noting scattered foci of atherosclerotic calcification. Bowel: Question wall thickening of the distal stomach. There is no bowel obstruction. The appendix is well-visualized and normal. Peritoneum: There is no intraperitoneal free air or abdominal ascites. Lymphadenopathy: None. Pelvic viscera: Evaluation of the pelvis is degraded by streak artifact from a right hip arthroplasty. The bladder, uterus, and adnexa are normal as visualized. Skeletal structures: The skeletal structures are osteopenic. There is mild lumbosacral spondylosis. No lytic or blastic lesions are seen. A right hip arthroplasty is in place. Advanced arthritic change is noted in the left hip. IMPRESSION: Question wall thickening of the distal stomach. Correlate clinically for evidence of gastritis. This is not well evaluated by CT and could be further assessed with endoscopy if clinically warranted. ACT 112: Negative or not required by law. Electronically signed by: Prosper Mccarthy M.D. 07/29/2021 10:24 PM Brain MRI 07/30/21 09:11 Brain MRI WITH AND WITHOUT CONTRAST HISTORY: n/v, vertigo, hx breast ca, MS r/o cerebellar cva TECHNIQUE: Multiplanar multisequence MRI of the brain was performed both before and after the intravenous administration of contrast. COMPARISON STUDY: Brain MRI 12/31/2018. FINDINGS: There is no mass, hematoma, midline shift, or acute infarct. The paranasal sinuses are clear. The mastoid air cells are clear. Scattered foci of T2 hyperintensity seen within the periventricular white matter are not simply changed. Postcontrast sequences show no areas of abnormal enhancement. Stable mild ventriculomegaly. Bilateral lens replacement.. The major vascular flow voids at the skull base are well-maintained. IMPRESSION: 1. No significant change compared to the prior study. No acute intracranial abnormality. 2. Stable scattered T2 hyperintense foci within the periventricular white matter which remain nonspecific. This could be due to chronic microvascular ischemic change or a demyelinating disease. 3. Stable mild ventriculomegaly. ACT 112: Negative or not required by law. Electronically signed by: Antonio Stoddard M.D. 07/30/2021 10:45 AM PG Care Time/CCT Total # of Minutes Spent Total Time Spent with Patient: Total time spent is greater than 50% in coordination of care (as documented) at patient's floor/unit and/or counseling patient: Coding Level of Care Code None Diagnoses Gastritis K29.00 Chronicity: acute Gastritis bleeding: without bleeding Gastritis type: unspecified gastritis Nausea & vomiting R11.2 Vomiting type: unspecified Multiple sclerosis G35 GERD without esophagitis K21.9 Depression F32.9 CKD (chronic kidney disease) stage 3, GFR 30-59 ml/min N18.30 (1) Gastritis Chronicity: acute Gastritis bleeding: without bleeding Gastritis type: unspecified gastritis Qualified Code(s): K29.00 - Acute gastritis without bleeding (2) Nausea & vomiting Vomiting type: unspecified Qualified Code(s): R11.2 - Nausea with vomiting, unspecified
--- NOTE | 2021-07-30 12:38 | Gastrointestinal Consultation ---
Date of Consultation July 30, 2021 Assessment & Plan Agree with assessment of likely acute viral gastroenteritis - Conservative management and advance to BRAT diet as tolerated with symptom control - Please arrange GI follow up to discuss gastric wall thickening, possible viral related (had EGD since being on chronic NSAID use) - no role for inpatient EGD - if symptoms last >1wk will need further evaluation. History of Present Illness Reason for Consultation: nausea, vomiting, abd pain Attending Physician: Maegan Ventura MD History of Present Illness 70 y/F with PMH listed below, significant for s/p bunny, CKD, breast CA, MS, HH and GERD (on once daily PPI) who is admitted with pain, nausea, vomiting, and diarrhea <24 hours duration. She notes acute onset epigastric pain, n/v after eating out Lunch with several episodes of diarrhea (can be intermittent chronic issue for her). Sunday (07/29) she continued with n/v and pain and decided to come to ED. Labs with SUNG but normal LFT, lipase, and CT scan with possible distal gastritis. She reports eating some jellow last night after few bites lost apetite. Just returned from Brain MRI given history of MS and dizziness. She notes this has been getting worse over last 6 months. Morphine in ED seemed to resolved issues and slept well. Overall feeling improved today, no more pain or vomiting, just nausea. She uses two ibuprofen daily for OA and prednisone 10mg daily (50% of year for MS). She has been doing this for last 3 years. EGD 03/2019 with HH and colonoscopy 02/2021 without polyps. Denies any fevers or bleeding. Allergies Allergy/AdvReac Type Severity Reaction Status Date / Time adhesive Allergy Unknown skin Verified 06/29/21 12:25 tears, skin blisters tetracycline Allergy Unknown rash Verified 06/29/21 12:25 clonazepam AdvReac Unknown Depression Verified 06/29/21 12:25 erythromycin base AdvReac Unknown GI SYMPTOMS Verified 06/29/21 12:25 zolpidem AdvReac Unknown sleep Verified 06/29/21 12:25 eating episodes Home Medications Medication Instructions Recorded Confirmed Type docusate sodium 50 mg capsule 100 mg PO HS 07/29/18 06/29/21 History (Stool Softener) multivitamin 1 cap PO QAM 07/29/18 06/29/21 History omega 4-iyr-mbu-fish oil 1,000 mg 1 cap PO QPM 07/29/18 06/29/21 History (120 mg-180 mg) capsule (Fish Oil) tamoxifen 20 mg tablet 20 mg PO QAM 07/29/18 06/29/21 History calcium 650 mg-vitamin D3 12.5 1 tab PO BID 06/24/19 06/29/21 History mcg-vitamin K 40 mcg chewable tablet (Viactiv) methylcellulose (with sugar) oral 2 tsp PO HS 06/24/19 06/29/21 History powder (Citrucel (sucrose)) omeprazole 20 mg capsule,delayed 20 mg PO QAM cap 03/11/20 06/29/21 History release ferrous sulfate 325 mg (65 mg 325 mg PO QAM 09/23/20 06/29/21 History iron) tablet bupropion HCl 200 mg tablet,12 hr 200 mg PO BID 30 Days #180 ea 11/08/20 06/29/21 Rx sustained-release escitalopram oxalate 20 mg tablet 20 mg PO HS 90 Days #90 tab 01/20/21 06/29/21 Rx prednisone 10 mg tablet 10 mg PO DAILY PRN 03/07/21 06/29/21 History cholecalciferol (vitamin D3) 50 10,000 unit PO DAILY cap 04/08/21 06/29/21 History mcg (2,000 unit) capsule (Vitamin D3) meclizine 25 mg tablet 12.5 mg PO HS #90 tab 04/08/21 06/29/21 Rx gabapentin 300 mg capsule 300 mg PO TID 90 Days #270 cap 04/12/21 06/29/21 Rx diphenhydramine 25 1 tab PO Q6H PRN 06/29/21 06/29/21 History mg-acetaminophen 500 mg tablet (Tylenol PM Extra Strength) Patient History Medical History Anxiety Breast cancer (~02/2013) Cancer of central portion of left female breast *LEFT LIMB RESTRICTION* Carcinoma of upper-outer quadrant of left female breast (02/25/13) "Abnormal left breast mammogram Status post ultrasound-guided biopsy 02/25/2013 finding invasive ductal carcinoma Status post partial mastectomy and sentinel lymph node biopsy Stage pTb [id number] Estrogen receptor positive progesterone receptor positive HER-2/amara negative Status post dose dense systemic chemotherapy Status post completion of radiation therapy utilizing hypo-fractionation completed 11/25/2013 received 5000 cGy " Cholelithiasis S/P LAP BUNNY Chronic leukopenia Ever since chemotherapy CKD (chronic kidney disease) stage 3, GFR 30-59 ml/min monitoring Depression GERD (gastroesophageal reflux disease) Heart murmur FUNCTIONAL, SINCE AGE 11 Hiatal hernia History of breast cancer 5 YEARS AGO. LUMPECTOMY, CHEMO AND RADIATION. History of neuropathy D/T CHEMO TREATMENT-HANDS FEET Multiple sclerosis HAS BEEN IN REMISSION-FOLLOWS WITH DR. PARADA, [facility]. Osteoarthritis Temporomandibular joint disorder RIGHT SIDE-NO HX LOCKING Urinary incontinence SPORADIC OCCURENCE, CHRONIC PROBLEM Vertigo Exacerbated by sitting up too fast and turning to left side while laying down Surgical History History of adenoidectomy History of breast lump removal History of cataract extraction with lens replacement History of colonoscopy History of dental surgery History of dilatation and curettage History of esophagogastroduodenoscopy (EGD) History of left knee replacement History of tonsillectomy History of vascular access device Hx laparoscopic cholecystectomy (02/03/19) Status post right hip replacement Family History Aunt Family history of diabetes mellitus Grandfather (Maternal) Family history of melanoma Colorectal cancer Grandmother (Maternal) Hypertension Cancer Mother Dementia Father Alcoholism Macular degeneration Rheumatoid arthritis Other Diabetes Heart disease Thyroid disorder Denies family history of Ovarian cancer Prostate cancer Myocardial infarction Breast cancer Lung cancer Uterine cancer Stroke Social History Smoking Status: Never smoker Second Hand Exposure: Yes ( A CHILD); Hx Alcohol Use: No Hx Substance Use: No Preferred Language: Kiswahili Communication Ability: Effective Visual Impairment: No Limitations Hearing Ability: Normal Baseball Winder Required: No Beliefs That Will Affect Care: None marital status: Current Living Situation: Spouse current occupational status: retired Feels Safe at Home: Yes Childhood Exposure to Second-Hand Smoke: No caffeine: Yes during the past year weight has: remained stable Dental Care, Regularly: Yes Physical Activity Frequency: Daily Seatbelt Use: always Sunscreen Use: Yes Assistive Devices: Cane and Glasses Review of Systems Review of Systems: Complete 14 point ROS is negative. Physical Exam Physical Exam: NAD resting comfortable in bed Eyes: eomi, no scleral icterus Respiratory: no resp distress Cardiovascular: see tele, normal rhythm Gastrointestinal (Abdomen): soft NT ND Skin: warm dry intact Neurologic: AOx3 moves all 4 ext Psychiatric: appropriate mood and affect Results & Data ([facility]) Vital Signs (Past 12 Hours) Vital Signs Temp Pulse Pulse Resp BP Pulse Ox 07/30/21 07:00 36.9 C 62 18 137/71 95 07/30/21 03:46 36.7 C 77 18 201/84 H 92 07/30/21 02:54 36.7 C 77 18 201/84 H 92 07/30/21 02:00 37 C 68 16 158/91 H 96
[2021-07-30] MEDS: HEPARIN SOD 5,000 UNIT/0.5 ML VIAL SQ SCH ×2 (13:01→21:11)
--- NOTE | 2021-07-30 13:13 | Electrocardiogram Report ---
Test Reason : Blood Pressure : / mmHG Vent. Rate : 075 BPM Atrial Rate : 075 BPM P-R Int : 170 ms QRS Dur : 078 ms QT Int : 432 ms P-R-T Axes : 065 077 069 degrees QTc Int : 482 ms Poor data quality, interpretation may be adversely affected Sinus rhythm with frequent Premature ventricular complexes Otherwise normal ECG When compared with ECG of 02-FEB-2019 17:26, Premature ventricular complexes are now Present Confirmed by Thomas Gongora ([id number]) on 07/30/2021 1:13:06 PM Referred By: REFERRED SELF Confirmed By:Thomas Gongora
[2021-07-30] MEDS: SUCRALFATE 1 GM/10 ML UDC PO SCH ×3 (13:49→21:10)
[2021-07-30] MEDS: ONDANSETRON INJ 2 MG/ML 2 ML VIAL IV PRN (19:43)
[2021-07-30] MEDS: ESCITALOPRAM OXALATE 20 MG TAB PO SCH (21:10)
[2021-07-30] MEDS: PANTOprazole 40 MG in SYRINGE 0 ML IV SCH (21:11)
[2021-07-31] MEDS: LACTATED RINGER'S 1,000 ML IV SCH (04:48)
[2021-07-31] MEDS: ONDANSETRON INJ 2 MG/ML 2 ML VIAL IV PRN (05:18)
[2021-07-31 06:18] LABS: Hematocrit (blood only) 41.9 % (37-47); Hemoglobin 13.5 g/dL (12.0-16.0); Mean Corpuscular Hemoglobin 31.1 pg (25-34); Mean Corpuscular Hgb Conc 32.2 g/dL (32-36); Mean Corpuscular Volume 96.5 fL (80-100); Mean Platelet Volume 10.2 fL (7.4-10.4); Platelet Count 150 K/uL (130-400); RDW Coefficient of Variation 12.4 % (11.5-14.5); RDW Standard Deviation 43.8 fL (36.4-46.3); Red Blood Count 4.34 M/uL (4.2-5.4); White Blood Count 3.49 K/uL (4.8-10.8)
[2021-07-31 06:36] LABS: BUN Creatinine Ratio 8.9 (10-20); Calcium 8.4 mg/dl (8.5-10.1); Creatinine Clr Calc Pharmacy 45.9 ml/min; Est GFR (African American) 64.4 ml/min; Est GFR (Non-African American) 55.6 ml/min; Potassium 3.8 mmol/L (3.5-5.1)
--- NOTE | 2021-07-31 07:54 | Hospitalist Progress Note ---
Date of Service July 31, 2021 Assessment & Plan (1) Gastritis: (2) Nausea & vomiting: (3) Multiple sclerosis: (4) GERD without esophagitis: (5) Depression: (6) CKD (chronic kidney disease) stage 3, GFR 30-59 ml/min: Plan: Benjie Santacruz is a 70-year-old female with PMH of MS, CKD,breast cancer, past cholecystectomy, hiatal hernia, GERD who presents due to GI symptoms since yesterday afternoon. Likely consistent with viral gastroenteritis, unable to tolerate oral nutrition or hydration at home. GI illness w/ gastritis/abdominal pain/diarrhea/vomiting - Likely due to viral gastroenteritis vs food poisoning occurring shortly after being out to eat - CT abdomen showing distal stomach thickening likely consistent with gastritis -- may be acute due to current illness vs chronic due to GERD --> She does have hx gastritis on prior EGD 2018 and admits to daily 200mg ibuprofen. Also with prednisone 60mg/40mg/20mg taper x 3 days for her MS flares. States occurs every 1-2 months but never exceeds Dr Guerrero's rx for every 6 months. Had been on Protonix BID in the past but only on omeprazole daily currently Place on PPI IV BID while not really taking in much PO, would rec BID dosing at d/c given prior gastritis -- will change to PO BID GI consulted -- BRAT diet, conservative tx. Outpt follow-up. If symptoms >1wk, need further evaluation Antiemetics prn -- would send with some PO zofran as needed at d/c Lipase wnl Stool studies ordered -- no further diarrhea Will also check a mag given PPI BID dosing Additional 1L IVF for today, increase PO intake as tolerated. Advanced to regular diet for today GERD CT findings of gastritis as above, on omeprazole daily at home but had been on BID dosing in past with hx gastritis. Given her increased steroids over winter and chronic use of NSAIDs, may benefit from lifelong BID PPI use Monitor above CKD III/Vit D deficiency Cr stable on admission, had been elevated in prior values. 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 Given 1gm IV calcium yesterday, ordered PO for today. Also checking phosphorus, replacement ordered as needed Cr stable IVF as above and monitor History of breast cancer s/p left lumpectomy and underwent chemo/radiation and was maintained on tamoxifen x 7 years but stated NOT on TAMOXIFEN since last Summer reported --> THERE IS NO MENTION OF THIS IN [facility]. Would clarify in AM, possibly have nurse navigator call. Follows with [facility] and up to date on recent mammograms, most recent mammogram earlier this year BI-RADS2. F/u outpatient Dizziness Acute on chronic, reported worsening over past 6 months. Follows with Neurology for MS and was due for MRI Continue meclizine prn -- utilized last evening with effect Will check orthostatics, if + bolus and repeat Multiple sclerosis Follows with [facility] Dr Guerrero Above chronic dizziness possibly related to her MS per latest neuro note --> MRI brain obtained MS protocol as well given dizziness/balance to r/o CVA. Discussed findings with Dr Veliz, no need for further work-up and can have routine f/u Prednisone 10mg listed on med rec --> discussed with patient and she typically has to use 60mg+40mg+20mg over 3 days when has MS flares...typically every 1-2 months She did state her gait was much improved last summer with PT/OT but during winter months not as active and recently restarted. Would continue PT/OT outpatient Anxiety/Depression Continue home escitalopram and bupropion as able to tolerate PO DVT prophylaxis: Heparin 5000 units q12h while inpatient Admission and Anticipated Discharge Date Admission Date: July 30, 2021 Subjective Patient evaluated by therapy this morning. Had recently started back up as outpatient couple of weeks ago. Discussed with PT, patient was not wearing shoes and does have leg length discrepancy and requires shoes with inserts. Evaluated with her shoes on. Patient did have some nausea this morning, improved with Zofran. Had yogurt, applesauce and some orange juice this morning. Discussed sticking to bland diet for now/bananas/toast/applesauce. Per GI, if symptoms lasting >1 week she will need f/u with Dr Rene for possible scope. She demonstrates understanding. Did also have some vertigo, similar to prior events and given meclizine last evening with relief. To ask if needing additional agent. She does admit she is to be on a calcium supplementation twice a day but she has to take this with breakfast/food and she does forget frequently/not take AM dose . Discussed increased compliance given low calcium on lab values. Will order additional 1L IVF, monitor to see if able to continue to tolerate more solid foods. Passing gas and feels some bloating but no further diarrhea noted. She would like to monitor overnight to see how she is feeling to ensure no further issues rather than d/c this afternoon. Questions/concerns addressed at this time. Review of Systems Review of Systems: All systems reviewed & are unremarkable except as noted in HPI & below Physical Exam Physical Exam: General: WD female, sitting up in chair, no acute distress, just finished working with therapy HEENT: eyes anicteric, pupils equal and reactive to light, slightly dry mm continued, trachea midline without deviation Resp: CTAB, no w/c, on room air CV: RR, no m/r/g, no edema, cap refill wnl GI: +BS, soft, slight tenderness to palpation epigastric/RUQ, no guarding/rigidity : no jaramillo MSK/Neuro: moves all extremities, full strength throughout, R hip pain (chronic), leg length discrepancy Psych: AOX3, pleasant and cooperative Skin: warm ,dry Results & Data Results & Data ([facility]) Vital Signs (Past 12 Hours) Vital Signs Temp Pulse Pulse Resp BP Pulse Ox Pulse Ox 07/31/21 07:25 37.1 C 60 18 172/83 H 94 07/31/21 03:57 62 94 07/30/21 23:12 36.9 C 67 18 154/71 H 94 07/30/21 22:35 65 97 Laboratory Results 07/31/21 07/31/21 07/31/21 Range/Units 06:07 06:07 06:07 WBC (4.8-10.8) K/uL RBC (4.2-5.4) M/uL Hgb (12.0-16.0) g/dL Hct (37-47) % MCV (80-100) fL MCH (25-34) pg MCHC (32-36) g/dL RDW Std Deviation (36.4-46.3) fL RDW Coeff of Phani (11.5-14.5) % Plt Count (130-400) K/uL MPV (7.4-10.4) fL Sodium 142 (136-145) mmol/L Potassium 3.8 (3.5-5.1) mmol/L Chloride 110 H (98-107) mmol/L Carbon Dioxide 28 (21-32) mmol/L Anion Gap 4 (3-11) BUN 9 (6-23) mg/dl Creatinine 1.01 (0.6-1.2) mg/dl Est Cr Clr Drug Dosing 45.9 ml/min Est GFR ( Amer) 64.4 ml/min Est GFR (Non-Af Amer) 55.6 ml/min BUN/Creatinine Ratio 8.9 L (10-20) Glucose 91 (70-99(Fasting)) mg/dl Calcium 8.4 L (8.5-10.1) mg/dl Phosphorus 2.0 L (2.5-4.9) mg/dl Magnesium 2.2 (1.7-2.4) mg/dl PTH Intact (12.0-88.0) pg/ml 07/31/21 07/31/21 Range/Units 06:07 06:07 WBC 3.49 L (4.8-10.8) K/uL RBC 4.34 (4.2-5.4) M/uL Hgb 13.5 (12.0-16.0) g/dL Hct 41.9 (37-47) % MCV 96.5 (80-100) fL MCH 31.1 (25-34) pg MCHC 32.2 (32-36) g/dL RDW Std Deviation 43.8 (36.4-46.3) fL RDW Coeff of Phani 12.4 (11.5-14.5) % Plt Count 150 (130-400) K/uL MPV 10.2 (7.4-10.4) fL Sodium (136-145) mmol/L Potassium (3.5-5.1) mmol/L Chloride (98-107) mmol/L Carbon Dioxide (21-32) mmol/L Anion Gap (3-11) BUN (6-23) mg/dl Creatinine (0.6-1.2) mg/dl Est Cr Clr Drug Dosing ml/min Est GFR ( Amer) ml/min Est GFR (Non-Af Amer) ml/min BUN/Creatinine Ratio (10-20) Glucose (70-99(Fasting)) mg/dl Calcium (8.5-10.1) mg/dl Phosphorus (2.5-4.9) mg/dl Magnesium (1.7-2.4) mg/dl PTH Intact 108.1 H (12.0-88.0) pg/ml PG Care Time/CCT Total # of Minutes Spent Total Time Spent with Patient: Total time spent is greater than 50% in coordination of care (as documented) at patient's floor/unit and/or counseling patient: Coding Level of Care Code 21951 Subseq Obs Care Lvl 3 Diagnoses Gastritis K29.00 Chronicity: acute Gastritis bleeding: without bleeding Gastritis type: unspecified gastritis Nausea & vomiting R11.2 Vomiting type: unspecified Multiple sclerosis G35 GERD without esophagitis K21.9 Depression F32.9 CKD (chronic kidney disease) stage 3, GFR 30-59 ml/min N18.30 (1) Gastritis Chronicity: acute Gastritis bleeding: without bleeding Gastritis type: unspecified gastritis Qualified Code(s): K29.00 - Acute gastritis without bleeding (2) Nausea & vomiting Vomiting type: unspecified Qualified Code(s): R11.2 - Nausea with vomiting, unspecified
[2021-07-31] MEDS: CALCIUM CARBONATE 1,250 MG/5 ML UDC PO SCH ×2 (08:23→20:16)
[2021-07-31] MEDS: HEPARIN SOD 5,000 UNIT/0.5 ML VIAL SQ SCH ×2 (08:23→20:16)
[2021-07-31] MEDS: PANTOprazole 40 MG in SYRINGE 0 ML IV SCH (08:23)
[2021-07-31] MEDS: GABAPENTIN 300 MG CAP PO SCH ×3 (08:23→20:16)
[2021-07-31] MEDS: buPROPion SR 100 MG TABCR PO SCH ×2 (09:45→20:17)
[2021-07-31] MEDS: SUCRALFATE 1 GM/10 ML UDC PO SCH (09:45)
[2021-07-31] MEDS ORDERED: POTASSIUM PHOS 3 MMOL/1 ML INFUSION IV STA (10:19)
[2021-07-31] MEDS ORDERED: POTASSIUM PHOSPHATE 9 MMOL in DEXTROSE 5% 250 ML IV ONE (10:30)
[2021-07-31] MEDS ORDERED: SODIUM CHLORIDE 0.65% NA SOLN 45 ML (OCEAN) ONE ×2 (12:02→15:56)
[2021-07-31] MEDS ORDERED: LACTATED RINGER'S 1,000 ML IV SCH (12:15)
[2021-07-31] MEDS ORDERED: SODIUM CHLORIDE 0.9% 250 ML IV ONE (13:00)
[2021-07-31] MEDS: CYANOCOBALAMIN 1000 MCG/ML VIAL IM SCH (16:33)
[2021-07-31] MEDS: PANTOprazole 40 MG TAB PO SCH (20:17)
[2021-07-31] MEDS: ESCITALOPRAM OXALATE 20 MG TAB PO SCH (20:18)
[2021-08-01 07:51] LABS: Hematocrit (blood only) 38.2 % (37-47); Mean Corpuscular Hemoglobin 32.1 pg (25-34); Mean Corpuscular Volume 94.3 fL (80-100); Mean Platelet Volume 10.2 fL (7.4-10.4); Platelet Count 154 K/uL (130-400); RDW Coefficient of Variation 12.5 % (11.5-14.5); RDW Standard Deviation 42.5 fL (36.4-46.3); Red Blood Count 4.05 M/uL (4.2-5.4); White Blood Count 3.73 K/uL (4.8-10.8)
[2021-08-01 08:10] LABS: BUN Creatinine Ratio 9.1 (10-20); Calcium 8.8 mg/dl (8.5-10.1); Creatinine Clr Calc Pharmacy 46.9 ml/min; Est GFR (Non-African American) 56.9 ml/min; Potassium 3.7 mmol/L (3.5-5.1)
[2021-08-01] MEDS: CYANOCOBALAMIN 1000 MCG/ML VIAL IM SCH (08:38)
[2021-08-01] MEDS: buPROPion SR 100 MG TABCR PO SCH (08:39)
[2021-08-01] MEDS: GABAPENTIN 300 MG CAP PO SCH ×2 (08:39→13:13)
[2021-08-01] MEDS: CALCIUM CARBONATE 1,250 MG/5 ML UDC PO SCH (08:39)
[2021-08-01] MEDS: HEPARIN SOD 5,000 UNIT/0.5 ML VIAL SQ SCH (08:40)
[2021-08-01] MEDS: PANTOprazole 40 MG TAB PO SCH (08:40)
--- NOTE | 2021-08-07 23:42 | Discharge Summary ---
Date of Service August 01, 2021 Admission HPI Per Admitting Provider Benjie Santacruz is a 70-year-old female with PMH of MS, CKD,breast cancer, past cholecystectomy, hiatal hernia, GERD who presents due to GI symptoms since yesterday afternoon. Patient reports she had lunch yesterday around noon and felt normal until about 2PM when she started having significant upper abdominal discomfort. Also had nausea and diarrhea. Eventually developed some vomiting, and has since been unable to keep much down. Has tolerated some small sips of water but has not had much to eat as the discomfort is too much. She tried using Mylanta and Pepto Bismol but did not cerna much relief with these. She reports that the abdominal discomfort seems to be a little worse on the RUQ but is present all throughout the upper abdomen. Additionally patient reports dizziness, which is a chronic issue for her, but seems to be worse currently, especially with too much head movement. She uses meclizine PRN at home for dizziness. Otherwise denies significant CP, palp, SOB, cough, back pain, new neuro deficits. In the ED, given IV Protonix, IV famotidine, IV zofran 4mg x2, NSS bolus x 1L, morphine 4mg IV x1, Reglan IV x1, meclizine 25mg PO x1. Labs unremarkable with no leukocytosis or anemia, normal electrolytes, normal LFTs. CT of the abdomen showed questionable thickening of the distal stomach potentially consistent with gastritis. Patient hemodynamically stable with mild elevation in BP. Principal Diagnosis gastritis Discharge Exam General: WD female, sitting up in chair, no acute distress HEENT: eyes anicteric, pupils equal and reactive to light, slightly dry mm continued, trachea midline without deviation Resp: CTAB, no w/c, on room air CV: RR, no m/r/g, no edema, cap refill wnl GI: +BS, soft, nontender, no guarding/rigidity : no jaramillo MSK/Neuro: moves all extremities, full strength throughout, R hip pain (chronic), leg length discrepancy Psych: AOX3, pleasant and cooperative Skin: warm ,dry Discharge Data Allergies Allergy/AdvReac Type Severity Reaction Status Date / Time adhesive Allergy Unknown skin Verified 06/29/21 12:25 tears, skin blisters tetracycline Allergy Unknown rash Verified 06/29/21 12:25 clonazepam AdvReac Unknown Depression Verified 06/29/21 12:25 erythromycin base AdvReac Unknown GI SYMPTOMS Verified 06/29/21 12:25 zolpidem AdvReac Unknown sleep Verified 06/29/21 12:25 eating episodes Consultations 07/29/21 23:33 ED Decision to Admit Stat 07/30/21 09:03 Consult Gastroenterology Routine Ordered Studies 07/29/21 20:25 CT abd pelvis IV con only Stat 07/30/21 09:11 MR brain MS wo/w con Stat Hospital Course (1) Gastritis: (2) Nausea & vomiting: (3) Multiple sclerosis: (4) GERD without esophagitis: (5) Depression: (6) CKD (chronic kidney disease) stage 3, GFR 30-59 ml/min: Benjie Santacruz is a 70-year-old female with PMH of MS, CKD,breast cancer, past cholecystectomy, hiatal hernia, GERD who presents due to GI symptoms since yesterday afternoon. Likely consistent with viral gastroenteritis, unable to tolerate oral nutrition or hydration at home. GI illness w/ gastritis/abdominal pain/diarrhea/vomiting - Likely due to viral gastroenteritis vs food poisoning occurring shortly after being out to eat - CT abdomen showing distal stomach thickening likely consistent with gastritis -- may be acute due to current illness vs chronic due to GERD --> She does have hx gastritis on prior EGD 2018 and admits to daily 200mg ibuprofen. Also with prednisone 60mg/40mg/20mg taper x 3 days for her MS flares. States occurs every 1-2 months but never exceeds Dr Guerrero's rx for every 6 months. Had been on Protonix BID in the past but only on omeprazole daily currently Place on PPI IV BID while not really taking in much PO, would rec BID dosing at d/c given prior gastritis -- will change to PO BID GI consulted -- BRAT diet, conservative tx. Outpt follow-up. If symptoms >1wk, need further evaluation Antiemetics prn -- would send with some PO zofran as needed at d/c Lipase wnl Stool studies ordered -- no further diarrhea discharge instructions noted below GERD CT findings of gastritis as above, on omeprazole daily at home but had been on BID dosing in past with hx gastritis. Given her increased steroids over winter and chronic use of NSAIDs, may benefit from lifelong BID PPI use Monitor above CKD III/Vit D deficiency Cr stable on admission, had been elevated in prior values. 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 Given 1gm IV calcium yesterday, ordered PO for today. Also checking phosphorus, replacement ordered as needed Cr stable History of breast cancer s/p left lumpectomy and underwent chemo/radiation and was maintained on tamoxifen x 7 years but stated NOT on TAMOXIFEN since last Summer reported --> THERE IS NO MENTION OF THIS IN [facility] NOTES. Would clarify in AM, possibly have nurse navigator call. Follows with [facility] and up to date on recent mammograms, most recent mammogram earlier this year BI-RADS2. F/u outpatient Dizziness Acute on chronic, reported worsening over past 6 months. Follows with Neurology for MS and was due for MRI Continue meclizine prn -- utilized last evening with effect Will check orthostatics, if + bolus and repeat Multiple sclerosis Follows with [facility] Neurology Dr Guerrero Above chronic dizziness possibly related to her MS per latest neuro note --> MRI brain obtained MS protocol as well given dizziness/balance to r/o CVA. Discussed findings with Dr Veliz, no need for further work-up and can have routine f/u Prednisone 10mg listed on med rec --> discussed with patient and she typically has to use 60mg+40mg+20mg over 3 days when has MS flares...typically every 1-2 months She did state her gait was much improved last summer with PT/OT but during winter months not as active and recently restarted. Would continue PT/OT outpatient Anxiety/Depression Continue home escitalopram and bupropion as able to tolerate PO Total Time Total Time Spent Total Time Spent (In Minutes): 35 Discharge Plan Discharge Items Patient Disposition: Home - Self-Care Reason For Visit: GI ILLNESS Discharge Diagnosis: Acute on chronic gastritis, diarrheal illness, possible food poisoning Goals: You have been hospitalized for an acute medical problem. During your stay at [facility], we have made an effort to correct the problem that brought you to the hospital while keeping you as comfortable as possible. Medications were used to bring your condition under control and your discharge instructions will include directions for any medications you should take after leaving the hospital. Please make sure you see your Primary Care Provider as part of your follow up plan. Activity: Resume your previous activity Non-emergency contact: Primary Care Provider Call non-emergency contact if: you have any medication questions, your symptoms worsen, your pain is not controlled and your pain is worsening Follow-up/Referrals: Tayo Rene DO [Physician] - Isadora Pacheco MD [Primary Care Provider] - 08/08/21 4:00 pm ([facility]) Diet: Regular Diet Comment: BLAND DIET Addtl Attending Provider Instructions: You have been hospitalized for nausea, vomiting and diarrhea. This occurred shortly after going out to eat and could potentially also have been food poisoning, but imaging did show some gastritis. This is similar to prior findings on EGD in the past with Dr Rene, and is likely worsened by NSAIDs(ibuprofen) and prednisone used for your MS. --It is encouraged to limit this and utilize Tylenol as needed for pain. --You have also been switched from omeprazole to Protonix 40mg by mouth TWICE da val to prevent any worsening symptoms/treatment of gastritis. --> If your symptoms of upper GI discomfort/indigestion last longer than total of 1 week, Dr Carreon from GI has recommended you follow up with Dr Rene for possible need for repeat EGD which Dr Carreon did not feel was needed during current inpatient stay. You had an MRI of the brain due to reported dizziness worsening over past several months, especially given your MS, and this was negative for any acute strokes, and your prior findings related to MS have been reviewed by Neurology during inpatient stay and felt to be unchanged and stable. It is encouraged to continue to remain well hydrated. You should attempt to utilize your calcium supplements twice daily to prevent low calcium levels. Your Vitamin D was recently checked by Neurology and was normal and you should continue your usual supplements. You did have a PTH checked which was elevated but likely due to kidney disease (your kidney function is IMPROVED compared to prior and likely due to dehydration) and low vitamin D and can be monitored on an outpatient basis. You have been sent in a couple tablet of Zofran to use as needed for nausea but this is likely viral related and should improve over the next 2-3 days. Stool studies were ordered and showed . You should consider discussion with your PCP about medications for urinary incontinence as this has seemed to contribute to issues with not drinking as much water as usual. Your urine was checked and NEGATIVE for UTI. Your B12 last month was also found to be borderline low. This can cause issues with balance as well as neuropathy. You have been given IM injections while in the hospital and should continue oral supplementation at discharge. Your medication list was reviewed and your daily vitamin D that your PCP changed to 10,000 IU a day has been decreased and ideally would not like to see anyone take more than 50,000 IU in a week. You can take this medication Sunday-Sunday and skip the weekends if you would like, or I would consider decreasing your Vitamin D supplementation to 2,000IU daily given your Vitamin D was 41 in the past and most recently 76 (normal is 30-100). Too much Vitamin D can be toxic to your body. I did repeat a Vitamin D level prior to discharge which was 76.5. The 2,000 IU is more than sufficient to keep stores and you can follow up with your PCP for continued monitoring/increase as needed. Please follow up with your PCP in the next 7-10 days after discharge to monitor your progress. Please return to the ER with any increased pain, fever, inability to keep up with oral hydration, or for any other symptoms concerning for you. Take care! Pending Studies at Discharge: No Stand-Alone Forms: My [facility] True Office, Smoking Cessation Medications and DC Order Prescriptions: New pantoprazole 40 mg tablet,delayed release (DR/EC) 40 mg PO BID Qty: 60 RF: 0 cyanocobalamin (vitamin B-12) 3,000 mcg capsule 3,000 mcg PO DAILY Qty: 30 RF: 0 Continued bupropion HCl 200 mg tablet sustained-release 12 hr 200 mg PO BID 30 Days Qty: 180 RF: 3 gabapentin 300 mg capsule 300 mg PO TID 90 Days Qty: 270 RF: 3 meclizine 25 mg tablet 12.5 mg PO HS Qty: 90 RF: 3 escitalopram oxalate 20 mg tablet 20 mg PO HS 90 Days Qty: 90 RF: 3 diphenhydramine-acetaminophen [Tylenol PM Extra Strength] 25-500 mg tablet 1 tab PO Q6H PRNRF: 0 ferrous sulfate 325 mg (65 mg iron) tablet 325 mg PO QAM RF: 0 Stool Softener 50 mg Capsule 100 mg PO HS RF: 0 multivitamin Capsule 1 cap PO QAM RF: 0 omega [id number] oil [Fish Oil] 1,000 mg (120 mg-180 mg) Capsule 1 cap PO QPM RF: 0 prednisone 10 mg tablet 10 mg PO DAILY PRN (Reason: MS flare up) RF: 0 Citrucel (sucrose) Powder 2 tsp PO HS RF: 0 calcium-vitamin D3-vitamin K [Viactiv] 650 mg-12.5 mcg-40 mcg Tablet,Chewable 1 tab PO BID RF: 0 Changed cholecalciferol (vitamin D3) [Vitamin D3] 50 mcg (2,000 unit) capsule 2,000 unit PO DAILY Qty: 0 RF: 0 Discontinued omeprazole 20 mg capsule,delayed release(DR/EC) 20 mg PO QAM RF: 0 Discharge Orders: Discharge Order (Routine); Ordered 08/01/21 Ordered By: Yared Mistry/Other Patient Handouts: Understanding Gastritis, ED Gastritis (Adult) Admission Data Admit Date/Time: 07/30/21 00:21 Attending Provider: Yared Felipe Admit Provider: Victoriano Perera Primary Care Provider: Isadora Pacheco Other Providers: Jazmin Soto ; Santosh Carreon Other Interventions: Discharge Summary Assessment (RN) Last Done: 08/01/21 13:18 Coding Level of Care Code 84913 OBS Care - Discharge Diagnoses Gastritis K29.00 Chronicity: acute Gastritis bleeding: without bleeding Gastritis type: unspecified gastritis Nausea & vomiting R11.2 Vomiting type: unspecified Multiple sclerosis G35 GERD without esophagitis K21.9 Depression F32.9 CKD (chronic kidney disease) stage 3, GFR 30-59 ml/min N18.30
== END 2021-08-01 16:12 | disposition home or self-care (01) ==
LOC: ED 19:20 → 3N 19:20 → SUATTDRO 07-30 00:21 → 3N 07-30 02:54

== ENCOUNTER 2021-09-29 17:15 | Observation (INO) ==
[2021-09-29] MEDS ORDERED: NITROGLYCERIN 2% OINTMENT 30GM TUBE EXT STA (17:28)
[2021-09-29] MEDS ORDERED: ASPIRIN CHEW 324 MG PO STA (17:28)
--- NOTE | 2021-09-29 17:33 | Emergency Department Note ---
History of Present Illness General Chief complaint: Chest Pain Stated complaint: chest pain Time Seen by Provider: 09/29/21 17:21 Source: patient History of Present Illness Provider complaint: Chest pain Onset (ago): hour(s) Location: chest Radiation: neck Pain Consistency: + constant Quality: + sharp and + other (Tightness) Relieved By: + medication (Sublingual nitroglycerin) Associated symptoms: no cough, no diaphoresis, no fever/chills, no nausea/vomiting or no shortness of breath This is a 71-year-old female who presents with chest pain starting at approximately 2:30 PM today while she was sitting at a computer. She denies any history of CAD. She describes the pain as initially very sharp radiating to her neck and then into her head. It has subsided significantly and she describes it as a tightness. She states she was given a sublingual nitroglycerin in the ambulance which seemed to help her pain significantly. She has no associated shortness of breath, nausea or diaphoresis. She denies any recent fever, cough or cold symptoms, abdominal pain, vomiting, diarrhea, urinary symptoms other than chronic incontinence, or leg swelling or pain. Home Medications Medication Instructions Recorded Confirmed Type docusate sodium 50 mg capsule 100 mg PO HS 07/29/18 09/29/21 History (Stool Softener) omega 6-hjl-itb-fish oil 1,000 mg 1 cap PO QPM 07/29/18 09/29/21 History (120 mg-180 mg) capsule (Fish Oil) calcium 650 mg-vitamin D3 12.5 1 tab PO BID 06/24/19 09/29/21 History mcg-vitamin K 40 mcg chewable tablet (Viactiv) methylcellulose (with sugar) oral 2 tsp PO HS 06/24/19 09/29/21 History powder (Citrucel (sucrose)) ferrous sulfate 325 mg (65 mg 325 mg PO QAM 09/23/20 09/29/21 History iron) tablet escitalopram oxalate 20 mg tablet 20 mg PO HS 90 Days #90 tab 01/20/21 09/29/21 Rx prednisone 10 mg tablet 10 mg PO DAILY PRN 03/07/21 09/29/21 History bupropion HCl 200 mg tablet,12 hr 200 mg PO BID ea 08/18/21 09/29/21 History sustained-release cholecalciferol (vitamin D3) 50 4,000 unit PO DAILY cap 08/18/21 09/29/21 History mcg (2,000 unit) capsule (Vitamin D3) triamcinolone acetonide 0.1 % 1 applic TOPICAL DIRECTED PRN 08/18/21 09/29/21 History topical cream cyanocobalamin (vitamin B-12) 3,000 mcg PO DAILY #30 cap 08/26/21 09/29/21 Rx 3,000 mcg capsule gabapentin 300 mg capsule 300 mg PO QID 90 Days #360 cap 08/26/21 09/29/21 Rx meclizine 25 mg tablet 25 mg PO TID 30 Days #90 tab 09/27/21 09/29/21 Rx multivitamin 1 tab PO DAILY 09/29/21 09/29/21 History pantoprazole 40 mg tablet,delayed mg PO 09/29/21 History release Allergies Allergy/AdvReac Type Severity Reaction Status Date / Time adhesive Allergy Intermediate skin Verified 09/29/21 18:15 tears, skin blisters tetracycline Allergy Intermediate rash Verified 09/29/21 18:15 clonazepam AdvReac Severe Depression Verified 09/29/21 18:15 zolpidem AdvReac Severe sleep Verified 09/29/21 18:15 eating episodes Past Med/Surg History Medical History Anxiety Breast cancer (~02/2013) Cancer of central portion of left female breast *LEFT LIMB RESTRICTION* Carcinoma of upper-outer quadrant of left female breast (02/25/13) "Abnormal left breast mammogram Status post ultrasound-guided biopsy 02/25/2013 finding invasive ductal carcinoma Status post partial mastectomy and sentinel lymph node biopsy Stage pTb [id number] Estrogen receptor positive progesterone receptor positive HER-2/amara negative Status post dose dense systemic chemotherapy Status post completion of radiation therapy utilizing hypo-fractionation completed 11/25/2013 received 5000 cGy " Cholelithiasis S/P LAP PETE Chronic leukopenia Ever since chemotherapy CKD (chronic kidney disease) stage 3, GFR 30-59 ml/min monitoring Depression GERD (gastroesophageal reflux disease) Heart murmur FUNCTIONAL, SINCE AGE 11 Hiatal hernia History of breast cancer 5 YEARS AGO. LUMPECTOMY, CHEMO AND RADIATION. History of neuropathy D/T CHEMO TREATMENT-HANDS FEET Multiple sclerosis HAS BEEN IN REMISSION-FOLLOWS WITH DR. MARSHA PARADA NEURO. Osteoarthritis Temporomandibular joint disorder RIGHT SIDE-NO HX LOCKING Urinary incontinence SPORADIC OCCURENCE, CHRONIC PROBLEM Vertigo Exacerbated by sitting up too fast and turning to left side while laying down Vitamin B12 deficiency Surgical History History of adenoidectomy History of breast lump removal LEFT History of cataract extraction with lens replacement R&L History of colonoscopy History of dental surgery 2 WISDOM TEETH History of dilatation and curettage History of esophagogastroduodenoscopy (EGD) History of left knee replacement History of tonsillectomy History of vascular access device AND SINCE REMOVED Hx laparoscopic cholecystectomy (02/03/19) Laparoscopic Cholecystectomy Dr. Farris 02/03/19 [facility] Status post right hip replacement Family History Aunt Family history of diabetes mellitus Grandfather (Maternal) Family history of melanoma Colorectal cancer Grandmother (Maternal) Hypertension Cancer liver cancer Mother Dementia Father Alcoholism Macular degeneration Rheumatoid arthritis Other Diabetes Heart disease Thyroid disorder Denies family history of Ovarian cancer Prostate cancer Myocardial infarction Breast cancer Lung cancer Uterine cancer Stroke Social History Smoking Status: Never smoker Second Hand Exposure: Yes ( A CHILD); Hx Alcohol Use: No Hx Substance Use: No Preferred Language: Togolese Communication Ability: Effective Visual Impairment: No Limitations Hearing Ability: Normal Clin Nurse Required: No Beliefs That Will Affect Care: None marital status: Current Living Situation: Spouse current occupational status: retired Feels Safe at Home: Yes Childhood Exposure to Second-Hand Smoke: No caffeine: Yes during the past year weight has: remained stable Dental Care, Regularly: Yes Physical Activity Frequency: Daily Seatbelt Use: always Sunscreen Use: Yes Assistive Devices: Cane Review of Systems See HPI for pertinent positives & negatives. and A total of 10 systems reviewed and were otherwise negative Physical Exam Vital Signs Vital Signs - 24 hr 09/29/21 17:28 09/29/21 18:56 Temperature 36.6 C Temperature Source Oral Pulse Rate 65 Pulse Rate [Apical] 61 Respiratory Rate 18 18 Blood Pressure 168/89 H Blood Pressure [Right Arm] 171/68 H Blood Pressure Mean 115 Blood Pressure Mean [Right Arm] 102 Pulse Oximetry 97 95 Oxygen Delivery Method Room Air Room Air Sepsis Recent Fever Within 48 Hours No Sepsis New/Unexplained Change in Mental Status No Sepsis Action Taken by Nursing No Action Required Constitutional: Vital signs reviewed. Eyes: Pupils are equal round reactive to light. Conjunctiva are noninjected. ENT: Pharynx is clear without erythema or exudate. Mucous membranes are moist. Neck supple without meningeal signs. Respiratory: Clear to auscultation bilaterally. Breath sounds are equal bilater ally. Cardiovascular: Regular rate and rhythm. No rubs or gallops. GI: Soft, nondistended and nontender. Bowel sounds are present. Musculoskeletal: No peripheral edema. No lower extremity tenderness. Integumentary: No cyanosis. or jaundice. Neurological: The patient is awake and alert. No focal deficits. Psychiatric: Normal affect. Not anxious appearing. Course Administered Medications Discontinued Medications Aspirin (Aspirin Chew 324 Mg) 324 mg PO NOW STA Stop: 09/29/21 17:29 Last Admin: 09/29/21 18:54 Dose: Not Given Documented by: [id number] Nitroglycerin (Nitroglycerin 2% Ointment 30gm Tube) 0.5 inch EXT NOW STA Stop: 09/29/21 17:29 Last Admin: 09/29/21 18:35 Dose: 0.5 inch Documented by: [id number] Medical Decision Making Differential Diagnosis Unstable angina, GA, pleurisy, GERD, anxiety Medical Records Attestation: I reviewed the patient's medical records. I did perform a limited focused review of portions of the patient's old chart on the electronic medical record. The patient was admitted in July of this year for abdominal pain and gastritis. Home Medications Current Medication List: was personally reviewed by me Laboratory Data Attestation: I reviewed the patient's lab results. Result diagrams: 09/29/21 17:25 09/29/21 17:25 Lab Results 09/29/21 09/29/21 09/29/21 Range/Units 17:25 17:25 17:25 WBC 4.25 L (4.8-10.8) K/uL RBC 4.24 (4.2-5.4) M/uL Hgb 13.6 (12.0-16.0) g/dL Hct 40.7 (37-47) % MCV 96.0 (80-100) fL MCH 32.1 (25-34) pg MCHC 33.4 (32-36) g/dL RDW Std Deviation 43.6 (36.4-46.3) fL RDW Coeff of Phani 12.5 (11.5-14.5) % Plt Count 194 (130-400) K/uL MPV 10.1 (7.4-10.4) fL Immature Gran % (Auto) 0.0 % Neut % (Auto) 43.8 % Lymph % (Auto) 43.1 % [place] % (Auto) 10.1 % Eos % (Auto) 2.8 % Baso % (Auto) 0.2 % Neut # (Auto) 1.86 (1.4-6.5) K/uL Lymph # (Auto) 1.83 (1.2-3.4) K/uL [place] # (Auto) 0.43 (0.11-0.59) K/uL Eos # (Auto) 0.12 (0-0.5) K/uL Baso # (Auto) 0.01 (0-0.2) K/uL Immature Gran # (Auto) 0.00 (0.00-0.02) K/uL Sodium 140 (136-145) mmol/L Potassium 3.9 (3.5-5.1) mmol/L Chloride 106 (98-107) mmol/L Carbon Dioxide 28 (21-32) mmol/L Anion Gap 6 (3-11) BUN 21 (6-23) mg/dl Creatinine 1.16 (0.6-1.2) mg/dl Est Cr Clr Drug Dosing 47.9 ml/min Est GFR ( Amer) 54.1 ml/min Est GFR (Non-Af Amer) 46.7 ml/min BUN/Creatinine Ratio 18.1 (10-20) Glucose 104 H (70-99(Fasting)) mg/dl Calcium 8.9 (8.5-10.1) mg/dl Total Bilirubin 0.5 (0.2-1.0) mg/dl AST 18 (13-39) U/L ALT 22 (7-52) U/L Alkaline Phosphatase 46 (34-104) U/L Troponin I High Sens 4.1 (0-14) pg/ml Total Protein 6.8 (6.0-8.3) gm/dl Albumin 4.2 (3.4-5.0) gm/dl Globulin 2.6 (2.5-4.0) gm/dl Albumin/Globulin Ratio 1.6 (0.9-2) Lipase 42 (11-82) U/L SARS-CoV-2, RNA, NAAT (NEGATIVE) 09/29/21 09/29/21 Range/Units 18:45 20:29 WBC (4.8-10.8) K/uL RBC (4.2-5.4) M/uL Hgb (12.0-16.0) g/dL Hct (37-47) % MCV (80-100) fL MCH (25-34) pg MCHC (32-36) g/dL RDW Std Deviation (36.4-46.3) fL RDW Coeff of Phani (11.5-14.5) % Plt Count (130-400) K/uL MPV (7.4-10.4) fL Immature Gran % (Auto) % Neut % (Auto) % Lymph % (Auto) % [place] % (Auto) % Eos % (Auto) % Baso % (Auto) % Neut # (Auto) (1.4-6.5) K/uL Lymph # (Auto) (1.2-3.4) K/uL [place] # (Auto) (0.11-0.59) K/uL Eos # (Auto) (0-0.5) K/uL Baso # (Auto) (0-0.2) K/uL Immature Gran # (Auto) (0.00-0.02) K/uL Sodium (136-145) mmol/L Potassium (3.5-5.1) mmol/L Chloride (98-107) mmol/L Carbon Dioxide (21-32) mmol/L Anion Gap (3-11) BUN (6-23) mg/dl Creatinine (0.6-1.2) mg/dl Est Cr Clr Drug Dosing ml/min Est GFR ( Amer) ml/min Est GFR (Non-Af Amer) ml/min BUN/Creatinine Ratio (10-20) Glucose (70-99(Fasting)) mg/dl Calcium (8.5-10.1) mg/dl Total Bilirubin (0.2-1.0) mg/dl AST (13-39) U/L ALT (7-52) U/L Alkaline Phosphatase (34-104) U/L Troponin I High Sens 4.0 (0-14) pg/ml Total Protein (6.0-8.3) gm/dl Albumin (3.4-5.0) gm/dl Globulin (2.5-4.0) gm/dl Albumin/Globulin Ratio (0.9-2) Lipase (11-82) U/L SARS-CoV-2, RNA, NAAT NEGATIVE (NEGATIVE) Imaging Data Radiologist's Impression: Chest X-Ray 09/29/21 17:28 XR chest 1V portable CLINICAL HISTORY: Atypical chest pain TECHNIQUE: Single frontal radiograph of the chest was obtained. Comparison: Comparison is made to chest radiograph 01/24/2021 FINDINGS: No lines and tubes are seen. The cardiomediastinal silhouette is normal. The lungs are clear. No evidence of pleural effusion or pneumothorax. IMPRESSION: No acute chest disease. ACT 112: Negative or not required by law. Electronically signed by: Marcus Schafer M.D. 09/29/2021 6:54 PM ECG Data Attestation: I personally reviewed and interpreted this ECG as follows: Indication: + chest pain Rate (beats per minute): 65 Rhythm: + normal sinus ECG [place]: + Normal ECG ST segments: no ST elevation ECG Findings: + Other (Some motion artifact in leads V4 to V5 limiting interpretation); no PVCs Comparison ECG Date: from (July 29, 2021) Change: the following changes noted (PVCs are no longer present today.) MDM Narrative I did evaluate the patient as noted above. The patient is presenting with chest pain today while sitting at her computer. She states initially was sharp and radiating into her neck and head. It then became a tightness and squeezing sensation. She did receive sublingual nitroglycerin in the ambulance and it helped her pain significantly. She is still having some tightness at this time. She was given aspirin in the ambulance. I did treat her with nitroglycerin paste. I did place an order for continuous cardiac monitoring. The monitor showed normal sinus rhythm at a rate of 63 bpm. I did order and personally review the patient's 12-lead EKG as described above. She has no acute ischemic changes. I did order and personally reviewed the images of the patient's chest x-ray as described above. Chest x-ray is unremarkable. I did order and review the patient's blood work as noted in the electronic medical record. CBC demonstrates mild leukopenia with a white count of 4.25. She is not anemic. CMP is unremarkable and lipase is within normal limits. Troponin is negative. Screening for COVID-19 is negative. I did reassess the patient. She is feeling much better and the squeezing and tightness in her chest is now resolved. I did discuss the test results with the patient and her . I did recommend hosp italization for further care and evaluation. I did discuss the case with the disease case manager and the hospitalist was informed. Impression & Plan Chest pain, precordial Discharge Plan Visit Data Chief Complaint: Chest Pain Stated Complaint: chest pain ED Provider: Moe Armando Discharge Problem: Chest pain, precordial Patient Disposition: Being Evaluated by Hospitalist Forms Stand Alone Forms: [facility] Prescriptions Prescriptions: No Action meclizine 25 mg tablet 25 mg PO TID 30 Days Qty: 90 RF: 3 bupropion HCl 200 mg tablet sustained-release 12 hr 200 mg PO BID RF: 0 cholecalciferol (vitamin D3) [Vitamin D3] 50 mcg (2,000 unit) capsule 4,000 unit PO DAILY RF: 0 triamcinolone acetonide 0.1 % cream 1 applic topical DIRECTED PRN (Reason: Skin Irritation) RF: 0 escitalopram oxalate 20 mg tablet 20 mg PO HS 90 Days Qty: 90 RF: 3 ferrous sulfate 325 mg (65 mg iron) tablet 325 mg PO QAM RF: 0 cyanocobalamin (vitamin B-12) 3,000 mcg capsule 3,000 mcg PO DAILY Qty: 30 RF: 11 gabapentin 300 mg capsule 300 mg PO QID 90 Days Qty: 360 RF: 1 Stool Softener 50 mg Capsule 100 mg PO HS RF: 0 omega 3-ukg-peq-fish oil [Fish Oil] 1,000 mg (120 mg-180 mg) Capsule 1 cap PO QPM RF: 0 prednisone 10 mg tablet 10 mg PO DAILY PRN (Reason: MS flare up) RF: 0 Citrucel (sucrose) Powder 2 tsp PO HS RF: 0 calcium-vitamin D3-vitamin K [Viactiv] 650 mg-12.5 mcg-40 mcg Tablet,Chewable 1 tab PO BID RF: 0 multivitamin Tablet 1 tab PO DAILY RF: 0 pantoprazole 40 mg tablet,delayed release (DR/EC) PO RF: 0 Referrals Referrals: Isadora Pacheco MD [Primary Care Provider] -
[2021-09-29 17:58] LABS: Basophils # (auto) 0.01 K/uL (0-0.2); Basophils % (auto) 0.2 %; Eosinophils # (auto) 0.12 K/uL (0-0.5); Eosinophils % (auto) 2.8 %; Hematocrit (blood only) 40.7 % (37-47); Hemoglobin 13.6 g/dL (12.0-16.0); Lymphocytes # (auto) 1.83 K/uL (1.2-3.4); Lymphocytes % (auto) 43.1 %; Mean Corpuscular Hemoglobin 32.1 pg (25-34); Mean Corpuscular Hgb Conc 33.4 g/dL (32-36); Mean Platelet Volume 10.1 fL (7.4-10.4); Monocytes # (auto) 0.43 K/uL (0.11-0.59); Monocytes % (auto) 10.1 %; Neutrophils # (auto) 1.86 K/uL (1.4-6.5); Neutrophils % (auto) 43.8 %; Platelet Count 194 K/uL (130-400); RDW Coefficient of Variation 12.5 % (11.5-14.5); RDW Standard Deviation 43.6 fL (36.4-46.3); Red Blood Count 4.24 M/uL (4.2-5.4); White Blood Count 4.25 K/uL (4.8-10.8)
[2021-09-29 18:50] LABS: Albumin Globulin Ratio 1.6 (0.9-2); Albumin Level 4.2 gm/dl (3.4-5.0); Bilirubin,Total 0.5 mg/dl (0.2-1.0); Calcium 8.9 mg/dl (8.5-10.1); Globulin 2.6 gm/dl (2.5-4.0); Potassium 3.9 mmol/L (3.5-5.1); Total Protein 6.8 gm/dl (6.0-8.3)
--- NOTE | 2021-09-29 18:55 | XRay Report ---
XR chest 1V portable CLINICAL HISTORY: Atypical chest pain TECHNIQUE: Single frontal radiograph of the chest was obtained. Comparison: Comparison is made to chest radiograph 01/24/2021 FINDINGS: No lines and tubes are seen. The cardiomediastinal silhouette is normal. The lungs are clear. No evid ence of pleural effusion or pneumothorax. IMPRESSION: No acute chest disease. ACT 112: Negative or not required by law. Electronically signed by: Marcus Schafer M.D. 09/29/2021 6:54 PM
[2021-09-29 19:24] LABS: BUN Creatinine Ratio 18.1 (10-20); Creatinine Clr Calc Pharmacy 47.9 ml/min; Est GFR (African American) 54.1 ml/min; Est GFR (Non-African American) 46.7 ml/min
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
[2021-09-29] MEDS ORDERED: PANTOprazole 40 MG TAB PO STA (21:12)
[2021-09-29] MEDS ORDERED: MECLIZINE HCL 25 MG TAB PO STA (21:12)
[2021-09-29] MEDS ORDERED: ACETAMINOPHEN 325 MG TAB PO PRN (23:19)
[2021-09-29] MEDS ORDERED: ONDANSETRON INJ 2 MG/ML 2 ML VIAL IV PRN (23:19)
[2021-09-29] MEDS ORDERED: POLYETHYLENE (MIRALAX) 17 GM PACK PO PRN (23:19)
[2021-09-30] MEDS: buPROPion SR 100 MG TABCR PO SCH ×2 (01:10→08:37)
[2021-09-30 06:28] LABS: Basophils # (auto) 0.01 K/uL (0-0.2); Basophils % (auto) 0.2 %; Eosinophils # (auto) 0.12 K/uL (0-0.5); Eosinophils % (auto) 2.8 %; Hematocrit (blood only) 38.5 % (37-47); Hemoglobin 12.5 g/dL (12.0-16.0); Lymphocytes # (auto) 2.06 K/uL (1.2-3.4); Lymphocytes % (auto) 48.1 %; Mean Corpuscular Hemoglobin 31.1 pg (25-34); Mean Corpuscular Hgb Conc 32.5 g/dL (32-36); Mean Corpuscular Volume 95.8 fL (80-100); Mean Platelet Volume 10.1 fL (7.4-10.4); Monocytes # (auto) 0.53 K/uL (0.11-0.59); Monocytes % (auto) 12.4 %; Neutrophils # (auto) 1.56 K/uL (1.4-6.5); Neutrophils % (auto) 36.5 %; Platelet Count 188 K/uL (130-400); RDW Coefficient of Variation 12.6 % (11.5-14.5); Red Blood Count 4.02 M/uL (4.2-5.4); White Blood Count 4.28 K/uL (4.8-10.8)
[2021-09-30 06:38] LABS: Troponin I High Sensitivity 5.3 pg/ml (0-14)
[2021-09-30 06:43] LABS: BUN Creatinine Ratio 20.7 (10-20); Calcium 8.7 mg/dl (8.5-10.1); Creatinine Clr Calc Pharmacy 49.6 ml/min; Est GFR (African American) 57.1 ml/min; Est GFR (Non-African American) 49.2 ml/min; Potassium 3.9 mmol/L (3.5-5.1)
--- NOTE | 2021-09-30 07:03 | CT Scan Report ---
CT SCAN OF THE BRAIN WITHOUT IV CONTRAST CLINICAL HISTORY: Headache. COMPARISON STUDY: CT of the brain dated 02/04/2018. TECHNIQUE: Unenhanced axial CT scan of the brain is performed from the vertex to the skull base. A do se lowering technique was utilized adhering to the principles of ALARA. CT DOSE: 537.48 mGy.cm FINDINGS: Brain parenchyma: There is age-related involutional change noting moderate patchy subcortical and per iventricular microangiopathic disease. There is no hemorrhage, mass effect, or evidence of acute terr itorial ischemia by CT criteria. Vaughan-white matter differentiation is preserved. No extra-axial fluid collection is seen. Ventricles, sulci, cisterns: Prominent secondary to involutional change. Ventriculomegaly similar to previous. Intracranial vasculature: There is atherosclerotic calcification of the cavernous carotid arteries. Calvarium: Unremarkable. Sinuses and mastoids: The visualized paranasal sinuses are clear. The mastoid air cells are well pneu matized. Orbits: The bony orbits are grossly intact. There are bilateral ocular lens implants. IMPRESSION: There is no hemorrhage, mass effect, or evidence of acute territorial ischemia by CT laura corrigan. ACT 112: Negative or not required by law. Electronically signed by: Prosper Mccarthy M.D. 09/30/2021 7:02 AM
[2021-09-30] MEDS: MECLIZINE HCL 25 MG TAB PO SCH ×2 (08:37→13:11)
[2021-09-30] MEDS: GABAPENTIN 300 MG CAP PO SCH ×3 (08:38→16:18)
[2021-09-30] MEDS ORDERED: CHOLECALCIFEROL 1,000 UNITS 25 MCG TAB PO SCH (09:00)
[2021-09-30] MEDS ORDERED: PANTOprazole 40 MG TAB PO SCH (09:00)
[2021-09-30] MEDS ORDERED: CYANOCOBALAMIN (B-12) 500 MCG TABLET PO SCH (09:00)
[2021-09-30] MEDS ORDERED: CALCIUM 600MG + VIT D 400 IU TAB PO SCH (09:00)
[2021-09-30] MEDS ORDERED: FERROUS SULFATE 325 MG TAB PO SCH (09:00)
--- NOTE | 2021-09-30 13:43 | Discharge Summary ---
Date of Service September 30, 2021 Admission HPI Per Admitting Provider Benjie Santacruz is a 71-year-old female past medical history of brast cancer s/p mastectomy and chemo in remission, depression, GERD, vertigo, CKD, B12 deficiency, chemo induced neuropathy, and multiple sclerosis currently in remission who presents today for evaluation of chest pain. Patient was at her computer today at 2:30 pm when she had sudden onset of central chest tightness/pressure that radiated up the front of her chest, into her throat and to the top of her head. Lasted approximately 10 minutes, during this time she did not experience any palpitations, shortness of breath, dizziness, weakness, visual changes, diaphoresis, nausea, vomiting. No focal weakness/numbness, confusion, or word finding difficulty. She called for her , who came upstairs and by the time he saw her she was back to her normal state of health. The headache is described as being at the top of her head, burning/tingling, "as if someone is rubbing sandpaper on my head". This is similar to how her MS flares present, however they are not accompanied by the chest, throat pain. Does not have a history of coronary artery disease, does note she has been under some stress lately. Since June, she has been having issues with ongoing dizziness, has been to see her neurologist and an gallery or museum technician for this, they have not been able to provide a concrete diagnosis and solution for her which causes her much anxiety over her health. Also with a history of GERD, on Protonix BID, ws hospitalized in July for gastritis. In route to the ED, all symptoms except her headache had subsided. EMS gave her sublingual nitroglycerin which alleviated her headache somewhat. Here in ED, she received full dose aspirin and additional nitro paste which she says has taken away her headache completely. Here she is hypertensive with BP 171/68, after nitroglycerin paste has come down to 149/59. All her vital signs within normal limits and stable. Labs largely unremarkable, CBC with WBC slightly low 4.25, otherwise within normal limits. BMP unremarkable for electrolyte abnormalities, initial HS troponin 4.1. CXR unremarkable. Admission Exam Per Admitting Provider General: awake, alert, anxious appearing but no apparent distress Head: Normocephalic, atraumatic ENT: PERRL, EOMI, no pharyngeal exudate, mucous membranes moist Chest: Clear to auscultation, on room air, no adventitious breath sounds Cardiac: Regular rate and rhythm, no murmur, no JVD, normal peripheral pulses, good capillary refill Abdominal: Mild epigastric tenderness to palpation; NABS x 4 quadrants, soft, nontender to palpation, no rebound, guarding or tenderness Extremities: Normal inspection, no peripheral edema or erythema, calfs nontender to palpation Psych: Normal mood and affect Neuro: AAO x 3, strength intact bilaterally and rated 5/5, no motor deficits, speech is clear, no peripheral sensory deficits Skin: no rash or erythema Principal Diagnosis chest tightness Discharge Exam Constitutional resting in bed comfortably, no acute distress Respiratory normal respiratory effort, clear to auscultation bilaterally Cardiovascular RRR no MRG, reproducible tightness sensation with palpation of lower sternum, no LE edema Gastrointestinal (Abdomen) tenderness to palpation in epigastric area, no tenderness in other quadrants, no masses or guarding Neurologic alert and oriented x3 Discharge Data Allergies Allergy/AdvReac Type Severity Reaction Status Date / Time adhesive Allergy Intermediate skin Verified 09/29/21 18:15 tears, skin blisters tetracycline Allergy Intermediate rash Verified 09/29/21 18:15 clonazepam AdvReac Severe Depression Verified 09/29/21 18:15 zolpidem AdvReac Severe sleep Verified 09/29/21 18:15 eating episodes Consultations 09/29/21 20:20 ED Decision to Admit Stat Ordered Studies 09/29/21 21:02 CT head/brain wo con Urgent 09/30/21 10:52 CT angio neck with con Routine Hospital Course (1) Multiple sclerosis: (2) Positional vertigo: (3) Chest pain: Benjie Santacruz is a 71 year old female with PMH of GERD, MS, vertigo, and breast cancer status post lumpectomy/chemo/radiation in 2012 presented to the ED with chest tightness and neck and head pain that resolved with sublingual nitroglycerin in the ambulance and nitroglycerin patch in the ED. All symptoms resolved within 24 hours. Unlikely to be cardiac etiology due to EKG and high sensitivity troponin being negative, in combination with lack of predisposing factors. CT head showed no acute pathology, no ischemia, hemorrhage or masses. Patient has had vertigo with quick movement of the head since June 2021 and has required a walker since June. Due to outpatient neurologist and gallery or museum technician ruling out MS and BPPV, a CT angiogram of the neck was ordered to rule out vertebral artery pathology which showed widely patent vertebrals with left sided dominance and widely patent carotids. Likely etiology for chest tightness include MS flare, GERD, or other musculoskeletal issue. Recommend following up outpatient with neurology and primary care, and starting vestibular PT with [facility] which was helpful for vertigo in the past. Continue omeprazole 20mg BID, and all other home medications. Decrease use of NSAIDs and use OTC Voltaren gel for arthritis pain. Total Time Total Time Spent Total Time Spent (In Minutes): see attending attestation Discharge Plan Discharge Items Patient Disposition: Home - Self-Care Reason For Visit: chest pain r/o Discharge Diagnosis: chest pain Activity: Per Instructions section Bathing: No limitations Non-emergency contact: Primary Care Provider Call non-emergency contact if: you have any medication questions and your symptoms worsen Follow-up/Referrals: Isadora Pacheco MD [Primary Care Provider] - Diet: Regular Addtl Attending Provider Instructions: You were admitted to the hospital with chest tightness and pain in your neck and head. A cardiac cause for your chest pain was ruled out with a normal EKG and normal troponin which is a lab that can indicate heart muscle injury. Your symptoms resolved with nitroglycerin and rest within 24 hours. Possible causes of your chest tightness and neck and head pain could include an MS flare, GERD, or musculoskeletal pain. Imaging: * A head CT scan showed no evidence of stroke, bleeding, or masses * A neck CT angiogram with contrast was done to evaluate your vertebral arteries as a cause for your vertigo: your carotid and vertebral arteries were widely patent which means that there is no blood flow obstruction in the neck causing your vertigo * No MRI of your brain was done at this hospitalization to evaluate an MS flare because your symptoms resolved within 24 hours Medications: * avoid NSAID use (Advil/ibuprofen/Motrin, Aleve/naproxen, etc) especially on an empty stomach * use Tylenol for pain relief when needed * can use topical Voltaren for your arthritis pain * take omeprazole 20mg by mouth twice a day * continue all other outpatient medications as prescribed * follow your neurologist's instructions for using prednisone 60mg/40mg/20mg taper for MS flares Follow-up with: * Your neurologist to discuss your MS flares and treatment * Your PCP for your chronic urinary incontinence and GERD treatment in 1-2 weeks * [facility] for vestibular PT, contact your PCP for a referral if needed If you have new or worsening symptoms of chest pain or shortness of breath, call 911 or get to the nearest emergency room. Pending Studies at Discharge: No Studies:: CT Head, CT angiogram neck Stand-Alone Forms: My [facility], Smoking Cessation Medications and DC Order Prescriptions: New omeprazole 20 mg tablet,delayed release (DR/EC) 20 mg PO BID 30 Days Qty: 60 RF: 0 Continued meclizine 25 mg tablet 25 mg PO TID 30 Days Qty: 90 RF: 3 bupropion HCl 200 mg tablet sustained-release 12 hr 200 mg PO BID RF: 0 cholecalciferol (vitamin D3) [Vitamin D3] 50 mcg (2,000 unit) capsule 4,000 unit PO DAILY RF: 0 triamcinolone acetonide 0.1 % cream 1 applic topical DIRECTED PRN (Reason: Skin Irritation) RF: 0 escitalopram oxalate 20 mg tablet 20 mg PO HS 90 Days Qty: 90 RF: 3 ferrous sulfate 325 mg (65 mg iron) tablet 325 mg PO QAM RF: 0 cyanocobalamin (vitamin B-12) 3,000 mcg capsule 3,000 mcg PO DAILY Qty: 30 RF: 11 gabapentin 300 mg capsule 300 mg PO QID 90 Days Qty: 360 RF: 1 Stool Softener 50 mg Capsule 100 mg PO HS RF: 0 omega 5-sij-yvf-fish oil [Fish Oil] 1,000 mg (120 mg-180 mg) Capsule 1 cap PO QPM RF: 0 prednisone 10 mg tablet 10 mg PO DAILY PRN (Reason: MS flare up) RF: 0 Citrucel (sucrose) Powder 2 tsp PO HS RF: 0 calcium-vitamin D3-vitamin K [Viactiv] 650 mg-12.5 mcg-40 mcg Tablet,Chewable 1 tab PO BID RF: 0 multivitamin Tablet 1 tab PO DAILY RF: 0 Discontinued pantoprazole 40 mg tablet,delayed release (DR/EC) PO RF: 0 Discharge Orders: Discharge Order (Routine); Ordered 09/30/21 Ordered By: Cody Mistry/Other Patient Handouts: ED GERD (Adult) Admission Data Admit Date/Time: 09/29/21 21:21 Attending Provider: Tesfaye Collins Admit Provider: Tin Ontiveros Primary Care Provider: Isadora Pacheco Other Providers: Tin Ontiveros Other Interventions: Discharge Summary Assessment (RN) Last Done: 09/30/21 16:07 Supervising Physician Co-Signing Physician Notes I personally examined the patient and verified all story points of history and exam, discussed case, and agree with decision making with Mack Moon MS4 feeling better feeling up to going home. dizziness not responding to vestibular PT like it used to vitals noted nad heent nc at mmm breathing unlabored no accessory muscles good effort skin no rashes no pallor or icterus chest pain - likely GI. atypical symptoms, low risk patient - no MD, no need for further testing. safe for home vertigo - almost certainly vestibular - suggested she resume care w the PT that was helpful before. did check CTA to ensure no vertebrobasilar disease since this can sometimes mimic vestibular - but normal safe for home, otherwise as above
[2021-09-30] MEDS ORDERED: OPTIRAY 320 125ml IV ONE (14:43)
--- NOTE | 2021-09-30 15:04 | CT Scan Report ---
CT ANGIOGRAM OF THE NECK CLINICAL HISTORY: Vertigo COMPARISON STUDY: No priors. TECHNIQUE: Following the IV administration of 120 of Optiray 320, CT angiogram of the neck was perfor med from the aortic arch to the skull base. Images are reviewed in the axial, sagittal, and coronal p lanes. 3-D MIPS images are created and assessed. IV contrast was administered without complication. A ll measurements were calculated based on NASCET criteria. A dose lowering technique was utilized adh ering to the principles of ALARA. CT DOSE: 887.53 mGycm FINDINGS: Thoracic aorta: Visualized portions of the thoracic aorta are normal in caliber. The aortic arch demo nstrates standard 3-vessel anatomy. Right carotid arterial system: The right common carotid artery is widely patent, as are the right int ernal and external carotid arteries. Left carotid arterial system: The left common carotid artery is widely patent, as are the left sports management intern al and external carotid arteries. Vertebral arteries: The vertebral arteries are widely patent bilaterally noting left-sided dominance. Subclavian arteries: Widely patent bilaterally. Intracranial vasculature: The visualized intracranial vessels at the skull base are patent. Jugular veins: Widely patent bilaterally. Brain parenchyma: The visualized brain parenchyma the skull base is within normal limits. Lung apices: Partially visualized upper lobe lung parenchyma appears clear. Soft tissues: The visualized pharyngeal soft tissues are normal in appearance noting angiographic pha se technique. The oropharyngeal airway appears widely patent. The thyroid gland is enlarged and heter ogeneous. The salivary glands are normal in appearance. No cervical lymphadenopathy is seen. Orbits: The bony orbits are intact. Orbital contents are normal as visualized noting bilateral ocular lens implants. Skeletal structures: The skeletal structures are osteopenic. The visualized calvarium at the skull ba se appears intact. The imaged cervical spine is maintained noting multilevel spondylosis. No lytic or blastic lesion is seen. Sinuses and mastoids: The paranasal sinuses are clear. The mastoid air cells are well pneumatized. IMPRESSION: Unremarkable CT angiogram of the neck. ACT 112: Negative or not required by law. Electronically signed by: Prosper Mccarthy M.D. 09/30/2021 3:03 PM
--- NOTE | 2021-09-30 16:06 | Communication Note ---
Date of Service: September 30, 2021 By CMS guidelines, a determination that the admission or continued stay is not medically necessary has been made by a member of the UR committee and a physi kike for this hospital stay, therefore a Code 44 will be completed and the Inpatient admission will be changed to outpatient.
--- NOTE | 2021-09-30 17:44 | Billing Data ---
Date of Service September 30, 2021 Coding Level of Care Code 53079 OBS Care - Discharge
[2021-09-30] MEDS ORDERED: METHYLCELLULOSE POWDER 454 GM JAR PO SCH (21:00)
[2021-09-30] MEDS ORDERED: ESCITALOPRAM OXALATE 20 MG TAB PO SCH (21:00)
[2021-09-30] MEDS ORDERED: DOCUSATE SODIUM 100 MG CAP PO SCH (21:00)
--- NOTE | 2021-10-01 05:54 | Billing Data ---
Date of Service October 01, 2021 Coding Level of Care Code INT OBSERVATION CARE 70M LVL 3
--- NOTE | 2021-10-01 06:05 | Electrocardiogram Report ---
Test Reason : Blood Pressure : / mmHG Vent. Rate : 065 BPM Atrial Rate : 065 BPM P-R Int : 170 ms QRS Dur : 078 ms QT Int : 418 ms P-R-T Axes : 065 053 049 degrees QTc Int : 434 ms Normal sinus rhythm Cannot rule out Anterior infarct , age undetermined Abnormal ECG When compared with ECG of 29-JUL-2021 20:42, Premature ventricular complexes are no longer Present Confirmed by Waqas Fishman ([id number]) on 10/01/2021 6:05:39 AM Referred By: REFERRED SELF Confirmed By:Waqas Fishman
== END 2021-09-30 17:21 | disposition home or self-care (01) | DRG 392 ==
LOC: ED 17:15 → 2N 21:21 → SUATTDRO 21:21 → INTOOBSV 21:21 → 2N 21:41